=== PATIENT | female | born 1970 | race Caucasian/White ===

== ENCOUNTER 2016-10-02 05:57 | Day surgery (SDC) | payer BC ==
[2016-09-20 13:37] VITALS: BMI 31.1
--- NOTE | 2016-10-01 09:58 | HP ---
Satellite H - Chief Complaint Chief Complaint: left knee pain - Past Medical History Allergies/Adverse Reactions: Allergies Allergy/AdvReac Type Severity Reaction Status Date / Time No Known Drug Allergies Allergy Verified 09/20/16 13:18 Cardiovascular: Yes: HTN ...LMP: 11/30/15 - Current Medications Current Medications: Home Medications Medication Instructions Recorded Alprazolam [Xanax] 1 mg PO QID PRN 08/23/14 Amlodipine Besylate [Norvasc -] 5 mg PO DAILY 08/23/14 Sertraline HCl [Zoloft -] 100 mg PO DAILY 08/23/14 Gabapentin [Neurontin] 300 mg PO QID #120 capsule 08/16/16 Albuterol Sulfate [Proair 90 mcg IH ASDIR PRN 09/20/16 Respiclick] Ibuprofen/Diphenhydramine Cit 1 each PO HS PRN 09/20/16 [Advil Pm Caplet] Multivitamins [Tab-A-Vit -] 1 tab PO DAILY 09/20/16 Oxycodone HCl/Acetaminophen 1 each PO Q4H PRN 09/20/16 [Percocet 10-325 mg Tablet] Satellite Physical Exam - Physical Examination General Appearance: Well Nourished, Well Developed, Alert & Oriented x3 ENT: Clear Lung: Normal air movement Heart: Regular rate & rhythm Extremities: Other (left knee-= swelling, + ttp, dec r rom, nvi xrays show severe medial compartment djd) Neurological: Intact, Alert, Oriented Satellite Impression/Plan - Impression/Plan Impression: left knee medial djd Operative Procedure: left medial luke ukr Date to be Performed: 10/02/16
[2016-10-02] MEDS ORDERED: oxyCODONE HCL 10 MG SUSTAINED ACTING TABLET PO ONE (06:13)
[2016-10-02] MEDS ORDERED: ROPIVICAINE 0.2%/MORPH PF/KETOROLAC - 51ML DISP.SYRINGE IA ONE ×3 (06:13→09:45)
[2016-10-02] MEDS ORDERED: CEFAZOLIN 1 GM/D5W 50 ML IVPB ONE (06:13)
[2016-10-02] MEDS ORDERED: CELECOXIB 200 MG CAPSULE PO ONE (06:13)
[2016-10-02] MEDS ORDERED: GABAPENTIN 300 MG CAPSULE (FP) PO ONE (06:13)
[2016-10-02] MEDS ORDERED: TRANEXAMIC ACID 1000 MG/10 ML VIAL IVPUSH ONE (06:13)
[2016-10-02] MEDS ORDERED: oxyCODONE HCL 10 MG SUSTAINED ACTING TABLET ONE (06:20)
[2016-10-02] MEDS ORDERED: GABAPENTIN 300 MG CAPSULE (FP) ONE (06:20)
[2016-10-02] MEDS ORDERED: CELECOXIB 200 MG CAPSULE ONE (06:21)
[2016-10-02] MEDS ORDERED: DEXAMETHASONE SOD PHOSPHATE/PF 10 MG/ML SDV ONE (06:38)
[2016-10-02] MEDS ORDERED: MIDAZOLAM HCL 2 MG/2 ML SINGLE DOSE VIAL ONE ×2 (06:39→08:21)
[2016-10-02] MEDS ORDERED: ROPIVACAINE HCL 0.5% 30ML VIAL ONE (06:39)
[2016-10-02] MEDS ORDERED: KETOROLAC TROMETHAMINE 30 MG/1 ML VIAL ONE (07:08)
[2016-10-02] MEDS ORDERED: ONDANSETRON 4 MG/2 ML VIAL ONE (07:08)
[2016-10-02] MEDS ORDERED: TRANEXAMIC ACID 1000 MG/10 ML VIAL ONE (07:08)
[2016-10-02] MEDS ORDERED: ceFAZolin SODIUM 1 GM VIAL ONE ×2 (07:08→07:21)
[2016-10-02] MEDS ORDERED: DEXAMETHASONE SOD PHOSPHATE 4 MG/1 ML VIAL ONE (07:08)
[2016-10-02] MEDS ORDERED: THROMBIN (BOVINE) 5,000 UNIT VIAL TP ONE ×2 (07:21→09:22)
[2016-10-02] MEDS ORDERED: GELATIN, ABSORBABLE 100 EACH SPONGE TP ONE (07:21)
[2016-10-02] MEDS ORDERED: PROPOFOL 20 ML ONE ×2 (08:26)
[2016-10-02] MEDS ORDERED: SUCCINYLCHOLINE CHLORIDE 200 MG/10 ML VIAL ONE ×2 (08:27→09:50)
[2016-10-02] MEDS ORDERED: LIDOCAINE HCL 2% JELLY (5 ML/TUBE) ONE (08:29)
[2016-10-02] MEDS ORDERED: ROCURONIUM BROMIDE 50 MG/5 ML VIAL ONE (08:45)
[2016-10-02] MEDS ORDERED: MAG HYDROX/AL HYDROX/SIMETH 30 ML UNIT-DOSE CUP PO PRN (10:02)
[2016-10-02] MEDS ORDERED: ONDANSETRON 4 MG/2 ML VIAL IVPB PRN (10:02)
--- NOTE | 2016-10-02 10:09 | OP ---
Operative Note - Note: Operative Date: 10/02/16 (isidro) Pre-Operative Diagnosis: left knee medial djd Operation: left medial luke ukr Post-Operative Diagnosis: Same as Pre-op Surgeon: Chase Marks Deliverer Merchandise: Lane Bryan) Anesthesiologist/ENGRAVER LETTERING: Micah Simeon Anesthesia: Spinal, Local Specimens Removed: bone fragments Estimated Blood Loss (mls): 100 Operative Report Dictated: Yes
[2016-10-02] MEDS ORDERED: LACTATED RINGERS SOLUTION 1,000 ML IV SCH (10:15)
[2016-10-02] MEDS ORDERED: ACETAMINOPHEN INJECTION 100 ML IVPB ONE (10:51)
[2016-10-02] MEDS ORDERED: ACETAMINOPHEN 1000 MG/100 ML VIAL (NON FORMULARY) IVPB ONE ×2 (10:55→12:24)
[2016-10-02] MEDS ORDERED: ONDANSETRON 4 MG/2 ML VIAL IVPUSH ONE (11:35)
[2016-10-02] MEDS ORDERED: oxyCODONE HCL 5 MG TABLET PO PRN ×2 (12:24→16:43)
[2016-10-02] MEDS ORDERED: ACETAMINOPHEN 325 MG TABLET (FP) PO SCH (12:30)
[2016-10-02] MEDS: oxyCODONE HCL 5 MG TABLET PO PRN ×4 (14:12→23:39)
[2016-10-02] MEDS: GABAPENTIN 300 MG CAPSULE (FP) PO SCH ×3 (14:12→21:26)
[2016-10-02] MEDS ORDERED: oxyCODONE HCL 5 MG TABLET PO ONE (16:43)
[2016-10-02] MEDS: CEFAZOLIN 1 GM/D5W 50 ML IVPB SCH (16:48)
[2016-10-02] MEDS: ACETAMINOPHEN 325 MG TABLET (FP) PO SCH (17:43)
[2016-10-02] MEDS: oxyCODONE HCL 10 MG SUSTAINED ACTING TABLET PO SCH (21:26)
[2016-10-02] MEDS: SENNOSIDES/DOCUSATE COMBO (SENNA PLUS) TABLET (UD) PO SCH (21:27)
[2016-10-02] MEDS ORDERED: ADVIL PM PO PRN (22:53)
[2016-10-02] MEDS: ALPRAZolam 2 MG TABLET PO PRN (23:40)
[2016-10-03] MEDS: CEFAZOLIN 1 GM/D5W 50 ML IVPB SCH (00:02)
[2016-10-03] MEDS: ACETAMINOPHEN 325 MG TABLET (FP) PO SCH ×2 (00:03→06:27)
[2016-10-03 05:59] VITALS: BP 136/82; PULSE 66; TEMP 98
[2016-10-03] MEDS: oxyCODONE HCL 5 MG TABLET PO PRN ×2 (06:26→09:41)
[2016-10-03] MEDS: ALPRAZolam 2 MG TABLET PO PRN (06:28)
[2016-10-03] MEDS ORDERED: ASPIRIN 325 MG TABLET PO SCH (08:00)
--- NOTE | 2016-10-03 08:17 | PN ---
Progress Note (short form) - Note Progress Note: Ortho Pt seen and examined s/p left medial luke ukr pod #1 Selected Entries 10/03/16 05:56 Temperature 98.0 F Pulse Rate 66 Respiratory 20 Rate Blood Pressure 136/82 dressing c/d/i, calf soft, nt rom 0-90, nvi a/p PT dvt ppx pain control d/c home today f/u in 1 week
--- NOTE | 2016-10-03 08:18 | DS ---
Physical Examination Vital Signs: Vital Signs Temperature 98.0 F 10/03/16 05:56 Pulse Rate 66 10/03/16 05:56 Respiratory Rate 20 10/03/16 05:56 Blood Pressure 136/82 10/03/16 05:56 O2 Sat by Pulse Oximetry (%) 100 10/03/16 05:56 Discharge Summary Reason For Visit: LEFT KNEE OSTEOARTHRITIS Procedures: Principal: s/p left medial luke ukr Hospital Course: admitted for elective left medial luke ukr, uneventful post-op, stable for d/c Condition: Good - Instructions Diet, Activity, Other Instructions: Post-op Instructions-Partial Knee Replacement Call the office for a follow-up appointment in 1 week - [phone] Aspirin 325mg daily for 6 weeks. Pain medication was sent into your pharmacy. Apply Graduated Compression Stockings (TEDs) to both lower extremities- remove daily for hygiene ONLY Apply Sequential Compression Device (SCDs) to both Lower extremities remove for PT and hygiene ONLY Apply cold packs to affected area for 15 minutes every 2 hours. Physical Therapist will come to your home for the first 5 days. You will be set up with outpatient PT at your first post-operative visit. Patient may ambulate as tolerated-encourage self care (at least every 2-3 hours while awake) with walker or cane Maintain Aquacel (waterproof) dressing to operative wound (will be removed by surgeon at first office visit) Shower with Aquacel dressing in place-if Aquacel integrity compromised, remove and apply dry sterile dressing and notify Orthopedist. DO NOT SHOWER unless Orthopedists approves without Aquacel dressing CONTACT THE OFFICE FOR ANY CHANGE IN YOUR CONDITION (for example-fever greater than 102 degrees,excessive bleeding from operative site, purulent drainage, severe swelling or pain) GO TO THE EMERGENCY ROOM IF THERE IS A MEDICAL EMERGENCY Knee Precautions: * Keep a rolled towel under affected heel while in bed or chair (to keep knee in extension) * Keep affected leg elevated except during mealtimes * DO NOT PLACE PILLOW UNDER AFFECTED KNEE * If you have any questions, please do not hesitate to call the office - . Referrals: Lane Bryan MD [Staff Physician] - Disposition: VNS/HOME HEALTH CARE - Home Medications Comprehensive Discharge Medication List: Ambulatory Orders Alprazolam [Xanax] 1 mg PO QID PRN 05/11/15 Amlodipine Besylate [Norvasc -] 5 mg PO DAILY 08/23/14 Sertraline HCl [Zoloft -] 100 mg PO DAILY 08/23/14 Gabapentin [Neurontin] 300 mg PO QID #120 capsule 08/16/16 Albuterol Sulfate [Proair Respiclick] 90 mcg IH ASDIR PRN 09/20/16 Ibuprofen/Diphenhydramine Cit [Advil Pm Caplet] 1 each PO HS PRN 09/20/16 Multivitamins [Multivit ([facility] Formulary)] 1 tab PO DAILY 09/20/16 Oxycodone HCl/Acetaminophen [Percocet 10-325 mg Tablet] 1 each PO Q6H PRN #50 tab MDD 4 10/02/16
[2016-10-03] MEDS: GABAPENTIN 300 MG CAPSULE (FP) PO SCH (09:42)
[2016-10-03] MEDS: SENNOSIDES/DOCUSATE COMBO (SENNA PLUS) TABLET (UD) PO SCH (09:42)
[2016-10-03] MEDS: oxyCODONE HCL 10 MG SUSTAINED ACTING TABLET PO SCH (09:42)
[2016-10-03] MEDS ORDERED: PANTOPRAZOLE 40 MG TABLET (FP) PO SCH (10:00)
[2016-10-03] MEDS ORDERED: SERTRALINE HCL 50 MG TABLET (FP) PO SCH (10:00)
[2016-10-03] MEDS ORDERED: PATIENT'S OWN MEDICATION (NON-FORMULARY) (Sertraline Hcl [Zoloft -] 100 MG) PO SCH (10:00)
[2016-10-03] MEDS ORDERED: MULTIVITAMINS (DAILY MVI) TABLET (FP) PO SCH ×2 (10:00)
--- NOTE | 2016-10-03 10:55 | SPEC ---
DATE OF OPERATION: 10/02/2016 PREOPERATIVE DIAGNOSIS: Degenerative joint disease, left knee. POSTOPERATIVE DIAGNOSIS: Degenerative joint disease, left knee. PROCEDURE: Left medial unicompartmental knee replacement with robotic-assisted navigation (MAKOplasty) and patelloplasty. SURGICAL ATTENDING: Chase Marks MD SALES EXHIBITOR: ELICEO Smith, and Vikas Bryan MD ANESTHESIA: Regional, attempted spinal and general with endotracheal intubation. CLOSURE: Medial MAKOplasty components with a 3 femur, 3 tibia, 8 mm polyethylene, No. 1 Vicryl to fascia, 0 and 2-0 subcutaneous and 3-0 Monocryl subcuticular to skin with skin glue for skin, 4-0 undyed Vicryl for pin sites. ESTIMATED BLOOD LOSS: Negligible. TOURNIQUET TIME: Approximately 20 minutes. COMPLICATIONS: No complications. DESCRIPTION OF PROCEDURE: Patient was taken to the operating room. Spinal and femoral block anesthesia was administered by the anesthesiologist. IV Kefzol and TXA were administered prophylactically prior to the case. A well-padded pneumatic tourniquet was placed on the left proximal thigh. The left lower extremity was prepped and draped in the usual sterile fashion. A 6 cm longitudinal incision was made along the medial retinaculum from mid patella toward the tibial tubercle. Hemostasis was achieved using Bovie cautery. Sharp dissection was carried down to the level of the capsule, which was opened the entire length of incision. A subperiosteal dissection in the anterior medial proximal tibia. Periosteal elevator was used to facilitate this dissection. Partial fat pad excision was performed to gain visualization. A femoral and tibial checkpoint were malleted into place. Two bicortical pins were drilled through small stab incisions into the femur 1 handbreadth above the patella. Two bicortical pins were drilled into the tibia 1 handbreadth below the tibial tubercle through small stab incisions as well. To these, pins were attached to clamp and the navigation arrays. The knee was then registered with the navigation device by ascertaining the center of rotation of the hip, both the medial and lateral malleoli, at approximately 50 points on the tibia and femur. Registration was within JOSE M parameters, being less than half a millimeter. At this time, the medial osteophytes on both the femur and tibia were removed by use of rongeur. The knee was taken through a range of motion and with stressing the medial compartment open at 0, 30, 60, 90 and 120 degrees. Stress points were obtained in order to develop a flexion/extension and a tightness/looseness graph. The robotic navigation device obtained a virtual tracking of the knee and found that the traction was in excellent position. The components were manipulated virtually in order to obtain a flexion/extension, tightness/looseness graph which was then +/- 1 mm. The robot was then brought into the field and registered with the navigation device. The robot was then used to zackery the bone on both the femur and the tibia to the specifications and direction of the navigation device. All excess bone and osteophytes and cartilage were removed, including the medial meniscus. Care was taken to protect the MCL throughout the case. The trial components were then placed into the knee with the appropriate polyethylene plastic trial liner. The knee was taken through a range of motion and the graph on the navigation device was then used again to confirm ideal position of the components and ideal tightness/looseness of the components. The trial components were removed, along with the checkpoints and the array. The knee was exsanguinated with an Esmarch bandage and tourniquet inflated to 175 mmHg. The knee was post-antibiotic irrigated and then dried and then Avitene and Gelfoam were placed to aid in hemostasis. The real components were then cemented in using modern generation cement techniques with antibiotics, cement and pressurization. All excess cement was removed. The knee was thoroughly inspected to remove any excess cement and bone fragments. The real polyethylene component was then clipped into place. Range of motion revealed excellent range of motion and good tensioning throughout. The knee was post-antibiotic irrigated. The fascia was closed using 2-0 Vicryl interrupted suture. The tourniquet was deflated. Total tourniquet time was less than 30 minutes. Hemostasis was obtained. Another dose of TXA was administered. The subcutaneous was closed with 2-0 Vicryl, 3-0 Monocryl subcuticular for skin. A pain cocktail was infused throughout the soft tissue. The pin sites were irrigated and closed with 4-0 Vicryl and skin glue was used for all incisions. Sterile Aquacel dressing was placed on all incisions followed by a dressing from the toes to the thigh. Patient was transferred to the recovery room in stable condition. No complications. VIKAS BRYAN M.D. [id number]
--- NOTE | 2016-10-03 19:11 | PN ---
Progress Note (short form) - Note Progress Note: S: Pt. seen early this am. Pt. ambulating without a walker. No knee pain. mild superficial back pain where spinal was attempted. O: VAS 0/10 A/P: POD#1 s/p left knee makoplasty 1. continue pain meds as ordered 2. no paresthesias, no pain in lower extremeties. reassured pt. that titanium plates weren't moved during spinal attempt.
== END 2016-10-03 10:30 | disposition home health service (06) ==
LOC: FASU 05:57 → FM/S 13:05 → FASU 10-03 10:30
PROVIDERS: ATTEND Orthopaedic Surgery
PROC: 8E0YXBZ Computer Assisted Procedure of Lower Extremity (ICD-10-PCS; 2016-10-02)
PROC: 8E0Y0CZ Robotic Assisted Procedure of Lower Extremity, Open Approach (ICD-10-PCS; 2016-10-02)
PROC: 0SRD0L9 Replacement of Left Knee Joint with Medial Unicondylar Synthetic Substitute, Cemented, Open Approach (ICD-10-PCS; principal; 2016-10-02 08:43)
DX: M17.12 Unilateral primary osteoarthritis, left knee (principal)
CPT/HCPCS: 20985; 27446; C1776; S2900; 73560-TC-LT; 84703; 94760; 97116-GP; 97162-PG

== ENCOUNTER 2016-11-01 17:16 | Inpatient (IN) | payer BC ==
[2016-11-01 17:24] VITALS: BMI 31.1
--- NOTE | 2016-11-01 17:51 | PDOC ---
Attending Attestation - Resident Resident Name: Mina Knox <Dagoberto Kramer - Last Filed: 11/01/16 17:50> - HPI HPI: 11/01/16 18:26 Patient is a 46 year old female with a pmhx of HTN who presents to the ED with left knee pain. Patient had a partial left knee replacement surgery and saw her Orthopedist today and had suture removal. Patient reports increased pain and swelling for 2 days. Patient reports difficulty to ambulate. She denies any fever or chills. - Physicial Exam PE: 11/01/16 20:13 GENERAL: Awake, alert, and fully oriented, in no acute distress HEAD: No signs of trauma EYES: PERRLA, EOMI, sclera anicteric, conjunctiva clear ENT: Auricles normal inspection, hearing grossly normal, nares patent, oropharynx clear without exudates. Moist mucosa NECK: Normal ROM, supple, no lymphadenopathy, JVD, or masses LUNGS: Breath sounds equal, clear to auscultation bilaterally. No wheezes, and no crackles HEART: Regular rate and rhythm, normal S1 and S2, no murmurs, rubs or gallops ABDOMEN: Soft, nontender, normoactive bowel sounds. No guarding, no rebound. No masses EXTREMITIES: Normal range of motion. No clubbing or cyanosis. No cords. NEUROLOGICAL: Cranial nerves II through XII grossly intact. Normal speech, normal gait SKIN: (+)Erythema and edema around the incision sight on the right knee. No drainage noted. Warm, Dry, normal turgor, no rashes. - Medical Decision Making 11/01/16 18:26 Plan -Labs -CXR -XRAY of the left knee -IVF -ECG Documentation prepared by PAVITHRA Tello, acting as medical device engineer for Dagoberto Kramer DO. <Colleen White - Last Filed: 11/01/16 20:14>
[2016-11-01] MEDS ORDERED: HYDROmorphone HCL CARPU-JECT 2 MG/1 ML DISP.SYRIN IVPUSH ONE ×2 (18:25→21:06)
[2016-11-01] MEDS ORDERED: ONDANSETRON 4 MG/2 ML VIAL IVPUSH ONE (18:25)
[2016-11-01] MEDS ORDERED: ONDANSETRON 4 MG/2 ML VIAL ONE (18:34)
[2016-11-01] MEDS ORDERED: HYDROmorphone HCL CARPU-JECT 2 MG/1 ML DISP.SYRIN ONE ×2 (18:34→21:09)
--- NOTE | 2016-11-01 18:34 | PDOC ---
History of Present Illness - General Chief Complaint: Wound Infection Stated Complaint: Left knee pain, swelling Time Seen by Provider: 11/01/16 17:50 - History of Present Illness Initial Comments: 11/01/16 18:52 Patient is a 46 year old female with a history of HTN and a partial left knee replacement 1 month ago who presents with left knee pain. Patient reports increased pain and swelling in her left knee over the past 2 days around the surgical incision. She states that she was evaluated by her surgeon this morning who removed two stitches and prescribed an antibiotic. The patient was unable to take the antibiotic due to vomiting. She states that she can no longer walk on or bend her knee which prompted her presentation to the ED. She states that some clear fluid drained from her knee yesterday. She endorses some fevers, chills, and sweating over the past 2 days. She denies any chest pain, SOB, abdominal pain, or changes with bowel movements or urination. Past History - Past Medical History Allergies/Adverse Reactions: Allergies Allergy/AdvReac Type Severity Reaction Status Date / Time No Known Drug Allergies Allergy Verified 11/01/16 17:23 Home Medications: Ambulatory Orders Alprazolam [Xanax] 1 mg PO QID PRN 08/23/14 Amlodipine Besylate [Norvasc -] 5 mg PO DAILY 08/23/14 Sertraline HCl [Zoloft -] 100 mg PO DAILY 08/23/14 Gabapentin [Neurontin] 300 mg PO QID #120 capsule 08/16/16 Albuterol Sulfate [Proair Respiclick] 90 mcg IH ASDIR PRN 09/20/16 Ibuprofen/Diphenhydramine Cit [Advil Pm Caplet] 1 each PO HS PRN 09/20/16 Multivitamins [Multivit ([facility] Formulary)] 1 tab PO DAILY 09/20/16 Oxycodone HCl/Acetaminophen [Percocet 10-325 mg Tablet] 1 each PO Q6H PRN #50 tab MDD 4 10/02/16 Anemia: Yes ( A TEENAGER HAD IRON SHOTS) Asthma: Yes (HAS HAD BRONCHITIS/ASTHMA 1-2 TIMES A YEAR) Cancer: No Cardiac Disorders: No CVA: No COPD: No CHF: No Dementia: No Diabetes: No GI Disorders: Yes (STOMACH ULCERS IN THE PAST) Disorders: No HTN: Yes Hypercholesterolemia: No Liver Disease: No Psychiatric Problems: Yes Seizures: No Thyroid Disease: No - Surgical History Abdominal Surgery: No Appendectomy: No Cardiac Surgery: No Cholecystectomy: No Lung Surgery: No Neurologic Surgery: No Orthopedic Surgery: Yes (LUMBAR Laminectomy 11/16 WITH HARDWARE) - Psycho/Social/Smoking Cessation Hx Anxiety: Yes Suicidal Ideation: No Smoking Status: Yes Smoking History: Current every day smoker Have you smoked in the past 12 months: Yes Number of Cigarettes Smoked Daily: 10 Information on smoking cessation initiated: Yes 'Breaking Loose' booklet given: 11/01/16 Hx Alcohol Use: No Drug/Substance Use Hx: No Substance Use Type: None Hx Substance Use Treatment: No Review of Systems - Review of Systems Constitutional: Yes: Chills, Fever, Night Sweats HEENTM: No: Recent change in vision, Nose Congestion, Throat Pain Respiratory: No: Cough, Shortness of Breath Cardiac (ROS): No: Chest Pain, Lightheadedness, Palpitations ABD/GI: Yes: Nausea, Vomiting. No: Constipated, Diarrhea : No: Burning, Dysuria Integumentary: Yes: Erythema. No: Rash Neurological: No: Headache, Tingling *Physical Exam - Vital Signs Last Vital Signs Temp Pulse Resp BP Pulse Ox 100.4 F H 121 H 19 152/81 94 L 11/01/16 17:21 11/01/16 17:21 11/01/16 17:21 11/01/16 17:21 11/01/16 17:21 - Physical Exam Comments: 11/01/16 19:22 General Appearance: Nourished. No Apparent Distress HEENT: No Pharyngeal Erythema, Tonsillar Exudate, Tonsillar Erythema Respiratory/Chest: Lungs Clear, Normal Breath Sounds. No Crackles, Rales, Rhonchi, Wheezing Cardiovascular: Regular Rhythm, Regular Rate. No Murmur, Gallop/S3, Gallop/S4 Gastrointestinal/Abdominal: Normal Bowel Sounds, Soft. No Guarding, Rebound, Tenderness Extremity: Normal Capillary Refill, Erythema and warmth of the left knee around surgical incision site. No drainage noted. Swelling and some fluculence noted on exam. Integumentary: Normal Color, Dry, Warm Neurologic: Fully Oriented, Alert, Normal Mood/Affect, Normal Response ED Treatment Course - LABORATORY CBC & Chemistry Diagram: 11/01/16 18:30 11/01/16 18:30 - RADIOLOGY Radiology Studies Ordered: Category Date Time Status CHEST X-RAY PORTABLE* [RAD] Stat Radiology 11/01/16 18:10 Ordered KNEE 3 POS-LEFT [RAD] Stat Radiology 11/01/16 18:10 Ordered Medical Decision Making - Medical Decision Making 11/01/16 19:24 Patient is a 46 year old female who presents with concern for wound infection in her left knee. Given the patient's physical exam, it is concerning for a wound infection. We will get a full sepsis work up given her history of fevers and chills including a cbc, cmp, lactate, blood cultures as well as a knee radiograph and chest radiograph. 11/01/16 22:41 Labs are unremarkable with no elevated WBC and negative lactate. Chest radiograph is unremarkable and knee radiograph demonstrates post surgical edema. Given the patient's physical exam, her knee is highly concerning for wound infection and we will admit for IV antibiotics. We discussed the case with Dr. Alonzo who agreed with admission. We will admit to Dr. Pulido per Dr. Alonzo's request. We will also place a consult to Dr. Bryan who performed the patient's knee replacement. The patient is agreeable to the plan. Please update the patient's father at: [phone] with any major changes. *DC/Admit/Observation/Transfer Diagnosis at time of Disposition: Wound infection - Discharge Dispostion Condition at time of disposition: Stable Admit: Yes - Referrals Referrals: Lane Sorenson MD [Primary Care Provider] - - Attestations Physician Attestion: 11/01/16 22:37 I, Dr. Mina Knox, attest that this document has been prepared under my direction and personally reviewed by me in its entirety. I further attest, that it accurately reflects all work, treatment, procedures and medical decision -making performed by me.
[2016-11-01 18:38] LABS: VENOUS PH 7.52 (7.32-7.42)
[2016-11-01 18:39] LABS: VENOUS BLOOD GAS HCO3 21.5 meq/L (19-25)
[2016-11-01] MEDS ORDERED: ACETAMINOPHEN 325 MG TABLET (FP) PO ONE (18:40)
[2016-11-01 19:07] LABS: BASOPHIL 0.5 % (0-2.0); EOSINOPHIL 0.1 % (0-4.5); MCH 33.1 pg (25.7-33.7); MCHC 33.3 g/dl (32.0-36.0); MEAN CELL VOLUME 99.6 fl (80-96); MEAN PLT VOLUME 8.8 fl (7.5-11.1); NEUTROPHILS 85.4 % (42.8-82.8); PLATELET COUNT 160 K/MM3 (134-434); RDW 14.9 % (11.6-15.6); WHITE BLOOD COUNT 8.4 K/mm3 (4.0-10.0)
[2016-11-01] MEDS ORDERED: ACETAMINOPHEN 325 MG TABLET (FP) ONE (19:14)
[2016-11-01 19:20] LABS: INR 0.98 (0.82-1.09); PROTHROMBIN TIME (PATIENT) 10.8 SEC (9.98-11.88)
[2016-11-01 19:23] LABS: ACTIVATED PTT 30.9 SECONDS (26.9-34.4)
[2016-11-01 19:34] LABS: ALBUMIN 3.6 g/dl (3.4-5.0); ANION GAP 14 (8-16); CALCIUM 8.7 mg/dL (8.5-10.1); CO2 20 mmol/L (21-32); CREATININE 0.5 mg/dL (0.55-1.02); GLUCOSE,RANDOM 140 mg/dL (74-106); SGOT/AST 53 U/L (15-37); SGPT/ALT 41 U/L (12-78)
[2016-11-01 19:38] LABS: ALK PHOS 115 U/L (45-117); BILIRUBIN,TOTAL 0.4 mg/dL (0.2-1.0); TOT PROT 7.1 g/dl (6.4-8.2); TROPONIN I < 0.02 ng/ml (0.00-0.05)
[2016-11-01] MEDS ORDERED: ALPRAZolam 0.25 MG TABLET ONE (21:59)
[2016-11-01] MEDS ORDERED: ALPRAZolam 0.25 MG TABLET PO ONE (22:02)
[2016-11-01] MEDS ORDERED: PIPERACILLIN/TAZOB 3.375 GM 3.375 GM in DEXTROSE 5%-WATER - 50 ML IVPB ONE (22:15)
[2016-11-01] MEDS ORDERED: VANCOMYCIN 1 GRAM (PRE-DOCKED) 1,000 MG/250 ML BAG IVPB ONE (22:15)
[2016-11-01] MEDS ORDERED: PIPERACILLIN/TAZOB 3.375 GM 50 ML IVPB ONE (22:29)
[2016-11-01] MEDS ORDERED: VANCOMYCIN 1 GRAM (PRE-DOCKED) 250 ML IVPB ONE (22:53)
[2016-11-02] MEDS ORDERED: ALPRAZolam 2 MG TABLET PO PRN (01:04)
[2016-11-02] MEDS ORDERED: ONDANSETRON 4 MG/2 ML VIAL IVPB PRN ×2 (01:04→17:47)
[2016-11-02] MEDS: oxyCODONE HCL 5 MG TABLET PO PRN ×3 (01:12→20:47)
[2016-11-02] MEDS: ACETAMINOPHEN 325 MG TABLET (FP) PO PRN ×2 (01:32→07:53)
[2016-11-02 03:46] LABS: URINE APPEARANCE CLEAR; URINE BILIRUBIN NEGATIVE (NEGATIVE); URINE BLOOD 1+ (NEGATIVE); URINE COLOR LTYELLOW; URINE GLUCOSE (UA) NEGATIVE (NEGATIVE); URINE KETONE NEGATIVE (NEGATIVE); URINE LEUK ESTERASE NEGATIVE (NEGATIVE); URINE NITRITE NEGATIVE (NEGATIVE); URINE UROBILINOGEN NEGATIVE mg/dL (0.2-1.0)
[2016-11-02 03:52] LABS: URINE PROTEIN 1+ (NEGATIVE)
[2016-11-02 03:53] LABS: URINE BACTERIA RARE /hpf (NONE SEEN); URINE MUCUS RARE; URINE RBC 9 /hpf (0-3); URINE WBC 2 /hpf (3-5)
[2016-11-02] MEDS: GABAPENTIN 300 MG CAPSULE (FP) PO SCH ×3 (09:49→20:48)
[2016-11-02] MEDS ORDERED: SERTRALINE HCL 50 MG TABLET (FP) PO SCH (10:00)
[2016-11-02] MEDS ORDERED: amLODIPine BESYLATE 5 MG TABLET (FP) PO SCH (10:00)
--- NOTE | 2016-11-02 10:18 | EKG ---
Test Reason : Blood Pressure : / mmHG Vent. Rate : 118 BPM Atrial Rate : 118 BPM P-R Int : 148 ms QRS Dur : 074 ms QT Int : 326 ms P-R-T Axes : 054 016 -03 degrees QTc Int : 456 ms POOR DATA QUALITY, INTERPRETATION MAY BE ADVERSELY AFFECTED SINUS TACHYCARDIA POSSIBLE LEFT ATRIAL ENLARGEMENT BORDERLINE ECG Confirmed by MD SKYE, REBECA ([id number]) on 11/02/2016 10:18:11 AM Referred By: Confirmed By:REBECA CHEUNG MD
--- NOTE | 2016-11-02 11:20 | PN ---
Progress Note (short form) - Note Progress Note: ID Consult dictated Surgical site infection Possible sepsis secondry to skin source Partial L knee replacement Pending c/s empiric vancomycin/ zosyn
[2016-11-02] MEDS ORDERED: VANCOMYCIN 1 GRAM (PRE-DOCKED) 250 ML IVPB SCH (12:00)
[2016-11-02] MEDS ORDERED: PIPERACILLIN/TAZOB 3.375 GM 50 ML IVPB SCH (12:00)
[2016-11-02] MEDS ORDERED: PATIENT'S OWN MEDICATION (NON-FORMULARY) (Albuterol Sulfate [Proair Respiclick] 90 MCG) IH PRN (13:03)
[2016-11-02] MEDS ORDERED: ALPRAZolam 0.25 MG TABLET PO PRN (13:03)
[2016-11-02] MEDS ORDERED: morphine CARPU-JECT 4 MG/1 ML DISP.SYRIN IVPUSH PRN ×2 (13:04→17:47)
[2016-11-02] MEDS ORDERED: SODIUM CHLORIDE 1,000 ML IV SCH (13:15)
--- NOTE | 2016-11-02 13:39 | HP ---
Admitting History and Physical - Primary Care Physician PCP: Lane Sorenson - Admission Chief Complaint: My knee is infected History of Present Illness: Ms Iglesias is a 46 year old female with history of L knee replacement who comes in with pain and redness. Patient is very upset and tearful during the history and it is difficult to establish a timeline of her complaints. She says she had surgery done last month (records show she had surgery done on 10/02) and was doing well post op. She says she was doing well with her PT and was up walking, playing with her dog, and moving without difficulty. About 2 weeks ago she started having pain in her L knee. She says the pain became so severe that she was unable to walk. She presented to Dr Bryan and stitches were removed. She went home and the pain worsened, she noticed she had redness and warmth as well. At this point it is difficult to ascertain the duration of the other symptoms. She said she had fevers, chills, nausea, vomiting, and anorexia. She says these symptoms have been present for several days and later says they started yesterday. I was not able to clarify secondary to her mood. I was also unable to obtain any further objective as at this point the family entered the room and they began to speak amongst themselves about the patients current conditions which further exacerbated the patient's stress. History Source: Patient Limitations to Obtaining History: Other (patient very frustrated with situation) - Past Medical History Cardiovascular: Yes: HTN ...LMP: 11/30/15 Psych: Yes: Depression - Past Surgical History Past Surgical History: Yes: Joint Replacement, Laminectomy (lumbar) - Smoking History Smoking history: Current every day smoker Have you smoked in the past 12 months: Yes Aproximately how many cigarettes per day: 10 - Alcohol/Substance Use Hx Alcohol Use: No - Social History Usual Living Arrangement: Yes: With Spouse ADL: Independent Occupation: teacher History of Recent Travel: No Home Medications - Allergies Allergies/Adverse Reactions: Allergies Allergy/AdvReac Type Severity Reaction Status Date / Time No Known Drug Allergies Allergy Verified 11/01/16 17:23 - Home Medications Home Medications: Ambulatory Orders Alprazolam [Xanax] 1 mg PO QID PRN 08/23/14 Amlodipine Besylate [Norvasc -] 5 mg PO DAILY 08/23/14 Sertraline HCl [Zoloft -] 100 mg PO DAILY 08/23/14 Gabapentin [Neurontin] 300 mg PO QID #120 capsule 08/16/16 Albuterol Sulfate [Proair Respiclick] 90 mcg IH ASDIR PRN 09/20/16 Ibuprofen/Diphenhydramine Cit [Advil Pm Caplet] 1 each PO HS PRN 09/20/16 Multivitamins [Multivit ([facility] Formulary)] 1 tab PO DAILY 09/20/16 Oxycodone HCl/Acetaminophen [Percocet 10-325 mg Tablet] 1 each PO Q6H PRN #50 tab MDD 4 10/02/16 Family Disease History - Family Disease History Family Disease History: [place]: Mother Review of Systems Findings/Remarks: Full review of systems attempted but limited secondary to current mood Physical Examination Vital Signs: Vital Signs Temperature 99.3 F 11/02/16 09:30 Pulse Rate 94 H 11/02/16 09:30 Respiratory Rate 18 11/02/16 09:30 Blood Pressure 135/78 11/02/16 09:30 O2 Sat by Pulse Oximetry (%) 95 11/01/16 23:17 Constitutional: Yes: Moderate Distress Eyes: Yes: Conjunctiva Clear, EOM Intact, PERRL Cardiovascular: Yes: Regular Rate and Rhythm. No: Gallop, Murmur, Rub Respiratory: Yes: Regular, CTA Bilaterally. No: Rales, Rhonchi, Wheezes Gastrointestinal: Yes: Normal Bowel Sounds, Soft. No: Distention, Tenderness Extremities: Yes: Erythema Edema: No Labs: Laboratory Results - last 24 hr 11/01/16 11/01/16 11/01/16 18:30 18:30 18:30 WBC 8.4 D RBC 3.81 Hgb 12.6 D Hct 38.0 MCV 99.6 H MCH 33.1 D MCHC 33.3 RDW 14.9 D Plt Count 160 MPV 8.8 Neutrophils % 85.4 H D Lymphocytes % 9.1 D Monocytes % 4.9 Eosinophils % 0.1 D Basophils % 0.5 INR 0.98 PTT (Actin FS) 30.9 VBG pH POC VBG pCO2 POC VBG pO2 Mixed VBG HCO3 Sodium 137 Potassium 3.4 L Chloride 103 Carbon Dioxide 20 L D Anion Gap 14 BUN 7 Creatinine 0.5 L Creat Clearance w eGFR > 60 Random Glucose 140 H D Lactic Acid Calcium 8.7 Total Bilirubin 0.4 D AST 53 H D ALT 41 D Alkaline Phosphatase 115 D Creatine Kinase 47 Troponin I < 0.02 Total Protein 7.1 Albumin 3.6 Urine Color Urine Appearance Urine pH Ur Specific [place] Urine Protein Urine Glucose (UA) Urine Ketones Urine Blood Urine Nitrite Urine Bilirubin Urine Urobilinogen Ur Leukocyte Esterase Urine RBC Urine WBC Ur Epithelial Cells Urine Bacteria Urine Mucus Blood Type Antibody Screen 11/01/16 11/01/16 11/01/16 18:30 18:32 18:33 WBC RBC Hgb Hct MCV MCH MCHC RDW Plt Count MPV Neutrophils % Lymphocytes % Monocytes % Eosinophils % Basophils % INR PTT (Actin FS) VBG pH 7.52 H POC VBG pCO2 26.8 L POC VBG pO2 51.7 H Mixed VBG HCO3 21.5 Sodium Potassium Chloride Carbon Dioxide Anion Gap BUN Creatinine Creat Clearance w eGFR Random Glucose Lactic Acid 0.8 Calcium Total Bilirubin AST ALT Alkaline Phosphatase Creatine Kinase Troponin I Total Protein Albumin Urine Color Urine Appearance Urine pH Ur Specific [place] Urine Protein Urine Glucose (UA) Urine Ketones Urine Blood Urine Nitrite Urine Bilirubin Urine Urobilinogen Ur Leukocyte Esterase Urine RBC Urine WBC Ur Epithelial Cells Urine Bacteria Urine Mucus Blood Type A POSITIVE Antibody Screen Negative 11/02/16 02:40 WBC RBC Hgb Hct MCV MCH MCHC RDW Plt Count MPV Neutrophils % Lymphocytes % Monocytes % Eosinophils % Basophils % INR PTT (Actin FS) VBG pH POC VBG pCO2 POC VBG pO2 Mixed VBG HCO3 Sodium Potassium Chloride Carbon Dioxide Anion Gap BUN Creatinine Creat Clearance w eGFR Random Glucose Lactic Acid Calcium Total Bilirubin AST ALT Alkaline Phosphatase Creatine Kinase Troponin I Total Protein Albumin Urine Color Ltyellow Urine Appearance Clear Urine pH 6.0 Ur Specific [place] 1.025 Urine Protein 1+ H Urine Glucose (UA) Negative Urine Ketones Negative Urine Blood 1+ H Urine Nitrite Negative Urine Bilirubin Negative Urine Urobilinogen Negative Ur Leukocyte Esterase Negative Urine RBC 9 Urine WBC 2 Ur Epithelial Cells Rare Urine Bacteria Rare Urine Mucus Rare Blood Type Antibody Screen Imaging - Results Chest X-ray: Report Reviewed, Image Reviewed X-ray: Report Reviewed Problem List - Problems (1) Wound infection Assessment/Plan: -patient presents with wound infection and sepsis -admitted to the hospital -blood culture growing gram positive cocci -ID consulted, started on vancomycin and zosyn -ortho consulted to evaluate wound, ? if needs to return to OR -suspect will need assisted antibiotics -pain control Code(s): T14.8 - OTHER INJURY OF UNSPECIFIED BODY REGION L08.9 - LOCAL INFECTION OF THE SKIN AND SUBCUTANEOUS TISSUE, UNSP (2) Hypertension Assessment/Plan: -continue amlodipine Code(s): I10 - ESSENTIAL (PRIMARY) HYPERTENSION (3) Tobacco abuse Assessment/Plan: -nicotine patch ordered Code(s): Z72.0 - TOBACCO USE (4) Anxiety Assessment/Plan: -continue home anxiety regimen Code(s): F41.9 - ANXIETY DISORDER, UNSPECIFIED
[2016-11-02] MEDS ORDERED: GABAPENTIN 300 MG CAPSULE (FP) PO SCH (14:00)
[2016-11-02] MEDS ORDERED: NICOTINE 14 MG/24 HOURS TOPICAL PATCH TD SCH (15:45)
--- NOTE | 2016-11-02 15:58 | CONSULT ---
Consult - text type - Consultation Consultation Note: FULL CONSULT DICTATED IMP: SURGICAL SITE INFECTION RIGHT KNEE PLAN: I&D NOW, IV ABX
[2016-11-02] MEDS ORDERED: SUCCINYLCHOLINE CHLORIDE 200 MG/10 ML VIAL ONE (16:08)
[2016-11-02] MEDS ORDERED: PROPOFOL 20 ML ONE ×2 (16:08→16:39)
[2016-11-02] MEDS ORDERED: LIDOCAINE HCL/PF 2% SDV 5ML VIAL ONE (16:10)
--- NOTE | 2016-11-02 16:25 | CONS ---
INFECTIOUS DISEASE CONSULTATION DATE OF CONSULTATION: DATE OF DICTATION: 11/02/2016 HISTORY OF PRESENT ILLNESS: The patient is a 46-year-old female who is evaluated for surgical site infection. The patient underwent a MAKOplasty procedure of the left knee on October 02, 2016. Her immediate postoperative course was uncomplicated. She reports being able to attend physical therapy and walk her dog shortly after the surgery. She did well until approximately 2 days ago, on October 31, 2016. She noted some yellowish discharge from the superior pole of the surgical incision. She had presented to her orthopedist and was evaluated. Sutures were removed, and she was placed on an oral antibiotic. She subsequently developed increasing pain, erythema, warmth, and swelling of the knee with inability to ambulate or bend the knee. She noted clear drainage. She is now admitted to the hospital. Cultures were obtained, and she was empirically treated with vancomycin and Zosyn. At the present time, she complains of left knee pain. She reports she is unable to ambulate. She also complained of fever to 100.4 and chills. PAST MEDICAL HISTORY: Positive for hypertension and degenerative joint disease. ALLERGIES: No known allergies. MEDICATIONS: Include Zofran, Tylenol, vancomycin, Zosyn, Neurontin, Zoloft, Xanax, Norvasc, oxycodone. SOCIAL HISTORY: She lives at home. Positive tobacco use. Negative history of alcohol abuse or illicit drug use. SYSTEMS REVIEW: Neurologic: No loss of consciousness, seizure activity, focal weakness. Cardiac: Negative chest pain or palpitations. Respiratory: Negative cough or sputum production. Gastrointestinal: Negative vomiting or diarrhea. Genitourinary: Negative for urinary tract infection. LABORATORY DATA: White count 8.4, hematocrit 38.0, platelet count 160. BUN 7, creatinine 0.5. Blood and wound cultures pending. PHYSICAL EXAMINATION: General: She is awake and alert. She is not acutely toxic appearing. Vital Signs: Temperature 99.3, T-max 100.4; blood pressure 135/78; pulse 94, regular; respirations 20 per minute. HEENT: Sclerae anicteric. Heart: Sounds S1, S2. Lungs: Clear bilaterally. Abdomen: Obese, soft, nontender. Extremities: Negative for pedal edema. Examination of the left knee: There is a surgical incision over the left patella which appears to have healed well. There is an area of erythema approximately 3 x 5 cm at the superior pole of the surgical wound. A second area of erythema approximately 3 cm x 3 cm is present at the inferior pole of the surgical wound. There is no expressible pus. However, there is yellowish discharge noted on the surgical dressing. IMPRESSION: 1. Surgical site infection. 2. Possible sepsis secondary to skin infection. 3. Possible deep-seated infection with involvement of the prosthetic material. Await culture results. Obtain sedimentation rate and C-reactive protein. Empiric antibiotic coverage with vancomycin and Zosyn pending culture results. Will follow. Thank you for the kind referral. ACE UNDERWOOD M.D. [id number]
[2016-11-02] MEDS ORDERED: DEXAMETHASONE SOD PHOSPHATE 4 MG/1 ML VIAL ONE (16:32)
[2016-11-02] MEDS ORDERED: KETOROLAC TROMETHAMINE 30 MG/1 ML VIAL ONE (16:32)
[2016-11-02] MEDS ORDERED: ACETAMINOPHEN 1000 MG/100 ML VIAL (NON FORMULARY) IVPB ONE ×2 (16:43→17:30)
[2016-11-02] MEDS ORDERED: VANCOMYCIN 1,000 MG VIAL (RESTRICTED TO ID ONLY) ONE (16:58)
[2016-11-02] MEDS: HYDROmorphone HCL CARPU-JECT 1 MG/1 ML DISP.SYRIN IVPUSH PRN ×4 (17:30→19:00)
--- NOTE | 2016-11-02 17:30 | OP ---
Operative Note - Note: Operative Date: 11/02/16 Pre-Operative Diagnosis: infected left knee s/p partial knee replacement Operation: I&D left knee Post-Operative Diagnosis: Same as Pre-op Surgeon: Lane Bryan Anesthesia: General Estimated Blood Loss (mls): 100 Operative Report Dictated: Yes
[2016-11-02] MEDS ORDERED: MAG HYDROX/AL HYDROX/SIMETH 30 ML UNIT-DOSE CUP PO PRN ×2 (17:35→17:47)
[2016-11-02] MEDS ORDERED: ONDANSETRON 4 MG/2 ML VIAL IVPUSH PRN (17:36)
[2016-11-02] MEDS ORDERED: ACETAMINOPHEN INJECTION 100 ML IVPB ONE (17:40)
[2016-11-02] MEDS ORDERED: HYDROmorphone HCL CARPU-JECT 2 MG/1 ML DISP.SYRIN ONE (17:40)
[2016-11-02] MEDS ORDERED: LACTATED RINGERS SOLUTION 1,000 ML IV SCH ×3 (17:45→17:47)
[2016-11-02] MEDS ORDERED: PIPERACILLIN/TAZOB 3.375 GM/50 ML PRE-DOCKED IVPB ONE (18:15)
[2016-11-02] MEDS ORDERED: ALBUTEROL SO4 6.7 GM HFA INHALER IH PRN (18:49)
[2016-11-02] MEDS: PIPERACILLIN/TAZOB 3.375 GM 50 ML IVPB SCH (21:26)
[2016-11-02] MEDS: ALPRAZolam 0.25 MG TABLET PO PRN (21:27)
[2016-11-02] MEDS ORDERED: DOCUSATE SODIUM 100 MG CAPSULE (FP) PO SCH (22:00)
[2016-11-02] MEDS: DOCUSATE SODIUM 100 MG CAPSULE (FP) PO SCH (22:50)
[2016-11-03] MEDS: VANCOMYCIN 1 GRAM (PRE-DOCKED) 250 ML IVPB SCH ×2 (00:14→11:58)
[2016-11-03] MEDS: SODIUM CHLORIDE 1,000 ML IV SCH ×3 (02:37→18:14)
[2016-11-03] MEDS: PIPERACILLIN/TAZOB 3.375 GM 50 ML IVPB SCH ×3 (03:00→17:12)
[2016-11-03] MEDS: GABAPENTIN 300 MG CAPSULE (FP) PO SCH ×5 (03:27→22:45)
--- NOTE | 2016-11-03 08:26 | CONS ---
DATE OF CONSULTATION: 11/02/2016 HISTORY OF PRESENT ILLNESS: Patient is a 46-year-old female who is status post right unicompartmental knee replacement performed by me approximately 1 month ago. Patient was doing phenomenally well until yesterday. Patient showed up in my office complaining of increased pain and some mild erythema at the superior portion of the incision. At that time, I opened the superior portion of the incision and found a small stitch, and I suspected it was a stitch abscess, which I removed and packed and placed the patient on p.o. antibiotics. At that time, the patient had excellent range of motion, no effusion inside the knee joint, and only slight erythema at the superior pole of the patella. Patient was given p.o. antibiotics, Keflex. About 3 hours later, patient started vomiting and was not able to tolerate the antibiotics, and pain got worse. Patient eventually went to the emergency room at [facility] last night and was admitted with worsening pain and redness around the incision. Patient was placed on IV antibiotics and admitted to the hospital. At that time, her systemic white count was 8, and she had no fever. A consult was placed in for me today, November 02. I came to see the patient at approximately 2:00 and saw that the erythema had significantly increased from her visit yesterday to my office, extending now entire length of the anterior incision with what appears to be some fluctuance underneath the incision itself. There is no effusion in the knee joint itself, and the patient still has very good range of motion. Patient's fever was only 100.9 at this time, but the patient was complaining of increased pain. Patient's range of motion was still excellent, was 0-125 degrees. Calf is soft, nontender, and otherwise neurovascularly intact. IMPRESSION: Surgical incision infection. I do not believe that it has penetrated into the knee joint itself. Risks, benefits, and alternatives discussed with the patient in great detail. I have recommended immediate I&D of the incision. The infection is progressing rapidly and it is above a joint replacement and I do not want the knee to become infected if it is not already. Recommend that we open the incision, irrigate and debride it, and inspect out the knee joint itself and wash the knee joint out as well and place the patient on extended antibiotics as per Infectious Disease. I went through risks, benefits, and alternatives with the patient. Patient agrees and would like to proceed immediately in doing this case, although the patient did eat about 1-1/2 hours prior. Due to the rapidly progressing nature of this, I do not want to wait 8 hours to perform this irrigation. I have told the patient the increased potential risk of doing it after she has eaten. She says she only had a small amount, but still, was made appraised of the potential complications due to eating close to surgery. Anesthesia has been made aware of this and would like to proceed. The patient will go to the OR within the next hour or so for I&D and irrigation and debridement. VIKAS GARCIA M.D. [id number]
[2016-11-03 08:27] LABS: BASOPHIL 0.1 % (0-2.0); MCH 33.9 pg (25.7-33.7); MCHC 34.2 g/dl (32.0-36.0); MEAN CELL VOLUME 99.1 fl (80-96); MEAN PLT VOLUME 8.3 fl (7.5-11.1); NEUTROPHILS 83.6 % (42.8-82.8); PLATELET COUNT 184 K/MM3 (134-434); RDW 14.3 % (11.6-15.6); WHITE BLOOD COUNT 8.5 K/mm3 (4.0-10.0)
[2016-11-03 08:34] LABS: MCH 33.9 pg (25.7-33.7); MCHC 34.3 g/dl (32.0-36.0); MEAN CELL VOLUME 98.9 fl (80-96); MEAN PLT VOLUME 8.4 fl (7.5-11.1); PLATELET COUNT 185 K/MM3 (134-434); RDW 14.5 % (11.6-15.6); WHITE BLOOD COUNT 8.7 K/mm3 (4.0-10.0)
[2016-11-03 08:55] LABS: ANION GAP 10 (8-16); CALCIUM 9.1 mg/dL (8.5-10.1); CO2 26 mmol/L (21-32); CREATININE 0.5 mg/dL (0.55-1.02); GLUCOSE,RANDOM 146 mg/dL (74-106); MAGNESIUM 2.1 mg/dL (1.8-2.4); PHOSPHOROUS 3.2 mg/dL (2.5-4.9)
[2016-11-03] MEDS ORDERED: PT OWN MED DRAWER 7, Y5N ONE (09:23)
[2016-11-03] MEDS: amLODIPine BESYLATE 5 MG TABLET (FP) PO SCH (09:28)
[2016-11-03] MEDS: SERTRALINE HCL 50 MG TABLET (FP) PO SCH (09:28)
[2016-11-03] MEDS: oxyCODONE HCL 5 MG TABLET PO PRN (09:29)
[2016-11-03] MEDS: MULTIVITAMINS (DAILY MVI) TABLET (FP) PO SCH (09:29)
[2016-11-03] MEDS: DOCUSATE SODIUM 100 MG CAPSULE (FP) PO SCH ×2 (09:29→22:46)
[2016-11-03] MEDS: NICOTINE 14 MG/24 HOURS TOPICAL PATCH TD SCH (09:30)
[2016-11-03] MEDS: POLYETHYLENE GLYCOL 3350 119 GM BTL PO SCH (09:31)
[2016-11-03] MEDS: ENOXAPARIN NA (PORCINE) 40 MG/0.4 ML DISP.SYRIN SQ SCH (09:31)
[2016-11-03] MEDS ORDERED: SERTRALINE HCL 50 MG TABLET (FP) PO SCH (10:00)
[2016-11-03] MEDS ORDERED: MULTIVITAMINS (DAILY MVI) TABLET (FP) PO SCH (10:00)
[2016-11-03] MEDS ORDERED: amLODIPine BESYLATE 5 MG TABLET (FP) PO SCH (10:00)
[2016-11-03] MEDS ORDERED: POLYETHYLENE GLYCOL 3350 119 GM BTL PO SCH (10:00)
[2016-11-03] MEDS ORDERED: ENOXAPARIN NA (PORCINE) 40 MG/0.4 ML DISP.SYRIN SQ SCH (10:00)
--- NOTE | 2016-11-03 11:43 | PN ---
Progress Note, Physician History of Present Illness: S/P I&D L knee No complaints of pain at present Temps down- afebrile BC presumptive MSSA Wound c/s pending - Current Medication List Current Medications: Active Medications Acetaminophen (Tylenol -) 325 mg PO Q6H PRN PRN Reason: FEVER OR PAIN Al Hydroxide/Mg Hydroxide (Mylanta Oral Suspension -) 30 ml PO Q4H PRN PRN Reason: DYSPEPSIA Albuterol Sulfate (Ventolin Hfa Inhaler -) 2 puff IH Q4H PRN PRN Reason: WHEEZING Alprazolam (Xanax -) 1 mg PO QID PRN PRN Reason: ANXIETY Last Admin: 11/02/16 21:27 Dose: 1 mg Amlodipine Besylate (Norvasc -) 5 mg PO DAILY [facility] Last Admin: 11/03/16 09:28 Dose: 5 mg Docusate Sodium (Colace -) 100 mg PO BID [facility] Last Admin: 11/03/16 09:29 Dose: 100 mg Enoxaparin Sodium (Lovenox -) 40 mg SQ DAILY [facility] Last Admin: 11/03/16 09:31 Dose: 40 mg Gabapentin (Neurontin -) 300 mg PO QID [facility] Last Admin: 11/03/16 09:28 Dose: 300 mg Sodium Chloride (Normal Saline -) 1,000 mls @ 75 mls/hr IV ASDIR [facility] Last Admin: 11/03/16 05:57 Dose: 75 mls/hr Vancomycin HCl (Vancomycin (Pre-Docked)) 250 mls @ 250 mls/hr IVPB Q12H [facility] Last Admin: 11/03/16 00:14 Dose: 250 mls/hr Piperacillin Sod/Tazobactam Sod (Zosyn 3.375gm Ivpb (Pre-Docked)) 50 mls @ 100 mls/hr IVPB Q8H-IV AFUA PRN Reason: Protocol Last Admin: 11/03/16 09:32 Dose: 100 mls/hr Morphine Sulfate (Morphine Injection -) 2 mg IVPUSH Q4H PRN PRN Reason: PAIN Multivitamins/Minerals/Vitamin C (Tab-A-Vit -) 1 tab PO DAILY [facility] Last Admin: 11/03/16 09:29 Dose: 1 tab Nicotine (Nicoderm Patch -) 14 mg TD DAILY [facility] Last Admin: 11/03/16 09:30 Dose: Not Given Ondansetron HCl (Zofran Injection) 4 mg IVPB Q6H PRN PRN Reason: NAUSEA AND/OR VOMITING Oxycodone HCl (Roxicodone -) 10 mg PO Q6H PRN Last Admin: 11/03/16 09:29 Dose: 10 mg Polyethylene Glycol (Miralax (For Daily Use) -) 17 gm PO DAILY [facility] Last Admin: 11/03/16 09:31 Dose: 17 gm Sertraline HCl (Zoloft -) 100 mg PO DAILY [facility] Last Admin: 11/03/16 09:28 Dose: 100 mg - Objective Vital Signs: Vital Signs Temperature 98.1 F 11/03/16 09:41 Pulse Rate 89 11/03/16 09:41 Respiratory Rate 20 11/03/16 09:41 Blood Pressure 113/65 11/03/16 09:41 O2 Sat by Pulse Oximetry (%) 96 11/03/16 09:00 Constitutional: Yes: No Distress Eyes: Yes: Conjunctiva Clear Cardiovascular: Yes: Regular Rate and Rhythm, S1, S2 Respiratory: Yes: CTA Bilaterally Gastrointestinal: Yes: Normal Bowel Sounds, Soft. No: Tenderness Extremities: Yes: Other (post operative dressing in place L LE) Labs: CBC, BMP 11/03/16 07:55 11/03/16 07:55 INR, PTT INR 0.98 (0.82-1.09) 11/01/16 18:30 Assessment/Plan S/P I&D L knee +BC, likely staph bacteremia/ sepsis from wound source S/P partial L knee replacement Await c/s Continue empiric vancomycin/ zosyn
--- NOTE | 2016-11-03 11:54 | PN ---
Progress Note, Physician Chief Complaint: Ms Mora says she is feeling much better today. Still with pain in her knee but improved. No cp, sob, n/v. - Current Medication List Current Medications: Active Medications Acetaminophen (Tylenol -) 325 mg PO Q6H PRN PRN Reason: FEVER OR PAIN Al Hydroxide/Mg Hydroxide (Mylanta Oral Suspension -) 30 ml PO Q4H PRN PRN Reason: DYSPEPSIA Albuterol Sulfate (Ventolin Hfa Inhaler -) 2 puff IH Q4H PRN PRN Reason: WHEEZING Alprazolam (Xanax -) 1 mg PO QID PRN PRN Reason: ANXIETY Last Admin: 11/02/16 21:27 Dose: 1 mg Amlodipine Besylate (Norvasc -) 5 mg PO DAILY [facility] Last Admin: 11/03/16 09:28 Dose: 5 mg Docusate Sodium (Colace -) 100 mg PO BID [facility] Last Admin: 11/03/16 09:29 Dose: 100 mg Enoxaparin Sodium (Lovenox -) 40 mg SQ DAILY [facility] Last Admin: 11/03/16 09:31 Dose: 40 mg Gabapentin (Neurontin -) 300 mg PO QID [facility] Last Admin: 11/03/16 09:28 Dose: 300 mg Sodium Chloride (Normal Saline -) 1,000 mls @ 75 mls/hr IV ASDIR [facility] Last Admin: 11/03/16 05:57 Dose: 75 mls/hr Vancomycin HCl (Vancomycin (Pre-Docked)) 250 mls @ 250 mls/hr IVPB Q12H [facility] Last Admin: 11/03/16 00:14 Dose: 250 mls/hr Piperacillin Sod/Tazobactam Sod (Zosyn 3.375gm Ivpb (Pre-Docked)) 50 mls @ 100 mls/hr IVPB Q8H-IV AFUA PRN Reason: Protocol Last Admin: 11/03/16 09:32 Dose: 100 mls/hr Morphine Sulfate (Morphine Injection -) 2 mg IVPUSH Q4H PRN PRN Reason: PAIN Multivitamins/Minerals/Vitamin C (Tab-A-Vit -) 1 tab PO DAILY [facility] Last Admin: 11/03/16 09:29 Dose: 1 tab Nicotine (Nicoderm Patch -) 14 mg TD DAILY [facility] Last Admin: 11/03/16 09:30 Dose: Not Given Ondansetron HCl (Zofran Injection) 4 mg IVPB Q6H PRN PRN Reason: NAUSEA AND/OR VOMITING Oxycodone HCl (Roxicodone -) 10 mg PO Q6H PRN Last Admin: 11/03/16 09:29 Dose: 10 mg Polyethylene Glycol (Miralax (For Daily Use) -) 17 gm PO DAILY [facility] Last Admin: 11/03/16 09:31 Dose: 17 gm Sertraline HCl (Zoloft -) 100 mg PO DAILY [facility] Last Admin: 11/03/16 09:28 Dose: 100 mg - Objective Vital Signs: Vital Signs Temperature 98.1 F 11/03/16 09:41 Pulse Rate 89 11/03/16 09:41 Respiratory Rate 20 11/03/16 09:41 Blood Pressure 113/65 11/03/16 09:41 O2 Sat by Pulse Oximetry (%) 96 11/03/16 09:00 Constitutional: Yes: Well Nourished, No Distress, Calm Cardiovascular: Yes: Regular Rate and Rhythm. No: Gallop, Murmur, Rub Respiratory: Yes: Regular, CTA Bilaterally. No: Rales, Rhonchi, Wheezes Gastrointestinal: Yes: Normal Bowel Sounds, Soft. No: Distention, Tenderness Extremities: Yes: WNL Edema: No Labs: CBC, BMP 11/03/16 07:55 11/03/16 07:55 INR, PTT INR 0.98 (0.82-1.09) 11/01/16 18:30 Problem List - Problems (1) Wound infection Code(s): T14.8 - OTHER INJURY OF UNSPECIFIED BODY REGION L08.9 - LOCAL INFECTION OF THE SKIN AND SUBCUTANEOUS TISSUE, UNSP (2) Hypertension Code(s): I10 - ESSENTIAL (PRIMARY) HYPERTENSION (3) Tobacco abuse Code(s): Z72.0 - TOBACCO USE (4) Anxiety Code(s): F41.9 - ANXIETY DISORDER, UNSPECIFIED Assessment/Plan (1) Wound infection with MSSA sepsis Assessment/Plan: -patient taken to the OR yesterday for I&D and washout -improved today -blood culture growing MSSA -ID following, will most likely need 2 weeks antibiotics -continue current management Code(s): T14.8 - OTHER INJURY OF UNSPECIFIED BODY REGION L08.9 - LOCAL INFECTION OF THE SKIN AND SUBCUTANEOUS TISSUE, UNSP (2) Hypertension Assessment/Plan: -continue amlodipine Code(s): I10 - ESSENTIAL (PRIMARY) HYPERTENSION (3) Tobacco abuse Assessment/Plan: -nicotine patch ordered Code(s): Z72.0 - TOBACCO USE (4) Anxiety Assessment/Plan: -continue home anxiety regimen Code(s): F41.9 - ANXIETY DISORDER, UNSPECIFIED
--- NOTE | 2016-11-03 14:18 | OP ---
DATE OF OPERATION: 11/02/2016 PREOPERATIVE DIAGNOSIS: Surgical site infection, left knee. POSTOPERATIVE DIAGNOSIS: Infected left knee. PROCEDURE: Open irrigation and debridement left knee. SURGICAL ATTENDING: Lane Bryan MD ANESTHESIA: General with endotracheal intubation. POSITION: Supine. CLOSURE: 0 Vicryl fascia, 2-0 Vicryl subcutaneous, and 3-0 nylon horizontal mattress for skin. ESTIMATED BLOOD LOSS: Approximately 50 mL. COMPLICATIONS: None. CONDITION: To recovery room in stable condition. DESCRIPTION OF OPERATIVE PROCEDURE: Patient was taken to the operating room on November 02, 2016. IV antibiotics had already been administered on the floor prior to the visit to the OR. General anesthesia with endotracheal intubation was administered by the anesthesiologist. Left lower extremity was prepped and draped in the usual sterile fashion. The previous incision was used to gain access to the knee. A cm longitudinal incision over the incision was made. Once getting through the subcutaneous down to the level prior to the fascia, there was a large pocket of fluid and purulence. Cultures were taken and sent to microbiology. This area was pulse antibiotic irrigated and cleaned. At this time the fascia was opened to see if the joint itself was infected. It was much less, but definitely present fluid and some purulence inside the knee joint. It was decided to open the entire fascia of the previous incision. All the Vicryl sutures in this region were removed. The knee was pulse antibiotic irrigated with 9 L of antibiotic irrigation. The components were scrubbed and were found to be stable throughout. A Hemovac was placed exiting superolaterally. Vancomycin powder was placed into the knee joint. Then, the fascia was closed. Once the fascia was closed, the area above the fascia was antibiotic irrigated and closed in layers 0 Vicryl and 2-0 Vicryl, and then 3-0 nylon and horizontal mattress for skin. Xeroform pressure dressing was applied. Patient was awakened from anesthesia and transferred to recovery room in stable condition. No complications. Estimated blood loss was 100 mL. Walter [id number]
--- NOTE | 2016-11-03 14:47 | PN ---
Progress Note (short form) - Note Progress Note: ANESTHESIOLOGY POST-OP CHECK 46F s/p left knee I&D under general anesthesia, POD #1. C/o pain 8/10. Denies N/ V, wants to get out of bed. Mild cough. Vital Signs Temperature 98.1 F 11/03/16 09:41 Pulse Rate 89 11/03/16 09:41 Respiratory Rate 20 11/03/16 09:41 Blood Pressure 113/65 11/03/16 09:41 O2 Sat by Pulse Oximetry (%) 96 11/03/16 09:00 Active Medications Acetaminophen (Tylenol -) 325 mg PO Q6H PRN PRN Reason: FEVER OR PAIN Al Hydroxide/Mg Hydroxide (Mylanta Oral Suspension -) 30 ml PO Q4H PRN PRN Reason: DYSPEPSIA Albuterol Sulfate (Ventolin Hfa Inhaler -) 2 puff IH Q4H PRN PRN Reason: WHEEZING Alprazolam (Xanax -) 1 mg PO QID PRN PRN Reason: ANXIETY Last Admin: 11/02/16 21:27 Dose: 1 mg Amlodipine Besylate (Norvasc -) 5 mg PO DAILY [facility] Last Admin: 11/03/16 09:28 Dose: 5 mg Docusate Sodium (Colace -) 100 mg PO BID [facility] Last Admin: 11/03/16 09:29 Dose: 100 mg Enoxaparin Sodium (Lovenox -) 40 mg SQ DAILY [facility] Last Admin: 11/03/16 09:31 Dose: 40 mg Gabapentin (Neurontin -) 300 mg PO QID [facility] Last Admin: 11/03/16 09:28 Dose: 300 mg Sodium Chloride (Normal Saline -) 1,000 mls @ 75 mls/hr IV ASDIR [facility] Last Admin: 11/03/16 05:57 Dose: 75 mls/hr Vancomycin HCl (Vancomycin (Pre-Docked)) 250 mls @ 250 mls/hr IVPB Q12H [facility] Last Admin: 11/03/16 11:58 Dose: 250 mls/hr Piperacillin Sod/Tazobactam Sod (Zosyn 3.375gm Ivpb (Pre-Docked)) 50 mls @ 100 mls/hr IVPB Q8H-IV [facility] PRN Reason: Protocol Last Admin: 11/03/16 09:32 Dose: 100 mls/hr Morphine Sulfate (Morphine Injection -) 4 mg IVPUSH Q4H PRN PRN Reason: PAIN Multivitamins/Minerals/Vitamin C (Tab-A-Vit -) 1 tab PO DAILY [facility] Last Admin: 11/03/16 09:29 Dose: 1 tab Nicotine (Nicoderm Patch -) 14 mg TD DAILY [facility] Last Admin: 11/03/16 09:30 Dose: Not Given Ondansetron HCl (Zofran Injection) 4 mg IVPB Q6H PRN PRN Reason: NAUSEA AND/OR VOMITING Oxycodone HCl (Roxicodone -) 10 mg PO Q6H PRN Last Admin: 11/03/16 09:29 Dose: 10 mg Polyethylene Glycol (Miralax (For Daily Use) -) 17 gm PO DAILY [facility] Last Admin: 11/03/16 09:31 Dose: 17 gm Sertraline HCl (Zoloft -) 100 mg PO DAILY [facility] Last Admin: 11/03/16 09:28 Dose: 100 mg Gen: Awake, alert No apparent anesthesia complications. Increased morphine to 4 mg doses and ordered incentive spirometer. Continue management as per primary team.
[2016-11-03] MEDS: ALPRAZolam 0.25 MG TABLET PO PRN ×2 (17:13→22:45)
[2016-11-03] MEDS: morphine CARPU-JECT 4 MG/1 ML DISP.SYRIN IVPUSH PRN ×2 (17:13→22:44)
--- NOTE | 2016-11-03 22:27 | PN ---
Progress Note (short form) - Note Progress Note: AVSS MUCH MORE COMFORTABLE TODAY MINIMAL DRAINAGE FROM DRAIN -->DCed BANDAGES DRY AND INTACT CALF SOFT AND NT + ABILITY TO STRAIGHT LEG RAISE WBC WNL, NHS=933 CRP=40 MICRO= GRAM + COCCI I BLOOD AND KNEE IMP: SEPTIC JOINT RIGHT KNEE S/P PARTIAL RIGHT KNEE REPLACEMENT 1 MONTH AGO S/P I&D AND NOW ON EMPIRIC ABX PLAN: CONTINUE EMPIRIC ABX, AWAITING FINAL REPORT, KNEE IMMOBILIZER FOR NOW TO ALLOW KNEE TO CALM DOWN BUT SHE CAN BE WBAT AND OOB. SHE WILL NEED 6 WEEKS OF IV ABX AND PIC LINE
[2016-11-04] MEDS: oxyCODONE HCL 5 MG TABLET PO PRN ×2 (01:08→20:58)
[2016-11-04] MEDS: PIPERACILLIN/TAZOB 3.375 GM 50 ML IVPB SCH ×2 (01:54→10:42)
[2016-11-04] MEDS: morphine CARPU-JECT 4 MG/1 ML DISP.SYRIN IVPUSH PRN ×4 (06:13→20:04)
[2016-11-04 07:25] LABS: BASOPHIL 0.5 % (0-2.0); EOSINOPHIL 1.2 % (0-4.5); MCH 33.9 pg (25.7-33.7); MCHC 33.6 g/dl (32.0-36.0); MEAN CELL VOLUME 100.9 fl (80-96); MEAN PLT VOLUME 8.4 fl (7.5-11.1); NEUTROPHILS 66.4 % (42.8-82.8); PLATELET COUNT 191 K/MM3 (134-434); RDW 14.7 % (11.6-15.6); WHITE BLOOD COUNT 6.5 K/mm3 (4.0-10.0)
[2016-11-04 08:04] LABS: ANION GAP 6 (8-16); CALCIUM 8.6 mg/dL (8.5-10.1); CO2 29 mmol/L (21-32); CREATININE 0.6 mg/dL (0.55-1.02); GLUCOSE,RANDOM 116 mg/dL (74-106); MAGNESIUM 1.7 mg/dL (1.8-2.4); PHOSPHOROUS 3.5 mg/dL (2.5-4.9)
[2016-11-04] MEDS: amLODIPine BESYLATE 5 MG TABLET (FP) PO SCH (10:41)
[2016-11-04] MEDS: GABAPENTIN 300 MG CAPSULE (FP) PO SCH ×4 (10:41→21:48)
[2016-11-04] MEDS: ENOXAPARIN NA (PORCINE) 40 MG/0.4 ML DISP.SYRIN SQ SCH (10:41)
[2016-11-04] MEDS: DOCUSATE SODIUM 100 MG CAPSULE (FP) PO SCH ×2 (10:41→22:08)
[2016-11-04] MEDS: SERTRALINE HCL 50 MG TABLET (FP) PO SCH (10:42)
[2016-11-04] MEDS: NICOTINE 14 MG/24 HOURS TOPICAL PATCH TD SCH (10:42)
[2016-11-04] MEDS: MULTIVITAMINS (DAILY MVI) TABLET (FP) PO SCH (10:42)
[2016-11-04] MEDS ORDERED: POTASSIUM CHLORIDE TABS 20 MEQ TABLET.ER (FP) PO ONE (11:30)
--- NOTE | 2016-11-04 11:53 | PN ---
Progress Note, Physician Chief Complaint: Ms Mora is doing well. No cp, sob, n/v. Still with pain in her leg but improving. - Current Medication List Current Medications: Active Medications Acetaminophen (Tylenol -) 325 mg PO Q6H PRN PRN Reason: FEVER OR PAIN Al Hydroxide/Mg Hydroxide (Mylanta Oral Suspension -) 30 ml PO Q4H PRN PRN Reason: DYSPEPSIA Albuterol Sulfate (Ventolin Hfa Inhaler -) 2 puff IH Q4H PRN PRN Reason: WHEEZING Alprazolam (Xanax -) 1 mg PO QID PRN PRN Reason: ANXIETY Last Admin: 11/03/16 22:45 Dose: 1 mg Amlodipine Besylate (Norvasc -) 5 mg PO DAILY [facility] Last Admin: 11/04/16 10:41 Dose: 5 mg Docusate Sodium (Colace -) 100 mg PO BID [facility] Last Admin: 11/04/16 10:41 Dose: Not Given Enoxaparin Sodium (Lovenox -) 40 mg SQ DAILY [facility] Last Admin: 11/04/16 10:41 Dose: 40 mg Gabapentin (Neurontin -) 300 mg PO QID [facility] Last Admin: 11/04/16 10:41 Dose: 300 mg Sodium Chloride (Normal Saline -) 1,000 mls @ 75 mls/hr IV ASDIR [facility] Last Admin: 11/03/16 18:14 Dose: Not Given Vancomycin HCl (Vancomycin (Pre-Docked)) 250 mls @ 250 mls/hr IVPB Q12H [facility] Last Admin: 11/04/16 00:00 Dose: 250 mls/hr Piperacillin Sod/Tazobactam Sod (Zosyn 3.375gm Ivpb (Pre-Docked)) 50 mls @ 100 mls/hr IVPB Q8H-IV [facility] PRN Reason: Protocol Last Admin: 11/04/16 10:42 Dose: 100 mls/hr Magnesium Oxide (Mag-Ox -) 400 mg PO BID [facility] Morphine Sulfate (Morphine Injection -) 4 mg IVPUSH Q4H PRN PRN Reason: PAIN Last Admin: 11/04/16 10:43 Dose: 4 mg Multivitamins/Minerals/Vitamin C (Tab-A-Vit -) 1 tab PO DAILY [facility] Last Admin: 11/04/16 10:42 Dose: 1 tab Nicotine (Nicoderm Patch -) 14 mg TD DAILY [facility] Last Admin: 11/04/16 10:42 Dose: Not Given Ondansetron HCl (Zofran Injection) 4 mg IVPB Q6H PRN PRN Reason: NAUSEA AND/OR VOMITING Oxycodone HCl (Roxicodone -) 10 mg PO Q6H PRN Last Admin: 11/04/16 01:08 Dose: 10 mg Polyethylene Glycol (Miralax (For Daily Use) -) 17 gm PO DAILY [facility] Last Admin: 11/03/16 09:31 Dose: 17 gm Sertraline HCl (Zoloft -) 100 mg PO DAILY [facility] Last Admin: 11/04/16 10:42 Dose: 100 mg - Objective Vital Signs: Vital Signs Temperature 98.6 F 11/04/16 10:00 Pulse Rate 88 11/04/16 10:00 Respiratory Rate 20 11/04/16 10:00 Blood Pressure 125/65 11/04/16 10:00 O2 Sat by Pulse Oximetry (%) 97 11/03/16 22:00 Constitutional: Yes: Well Nourished, No Distress, Calm Cardiovascular: Yes: Regular Rate and Rhythm. No: Gallop, Murmur, Rub Respiratory: Yes: Regular, CTA Bilaterally. No: Rales, Rhonchi, Wheezes Gastrointestinal: Yes: Normal Bowel Sounds, Soft. No: Distention, Tenderness Extremities: Yes: WNL Edema: No Labs: CBC, BMP 11/04/16 06:45 11/04/16 06:45 INR, PTT INR 0.98 (0.82-1.09) 11/01/16 18:30 Problem List - Problems (1) Wound infection Code(s): T14.8 - OTHER INJURY OF UNSPECIFIED BODY REGION L08.9 - LOCAL INFECTION OF THE SKIN AND SUBCUTANEOUS TISSUE, UNSP (2) Hypertension Code(s): I10 - ESSENTIAL (PRIMARY) HYPERTENSION (3) Tobacco abuse Code(s): Z72.0 - TOBACCO USE (4) Anxiety Code(s): F41.9 - ANXIETY DISORDER, UNSPECIFIED Assessment/Plan (1) Wound infection with MSSA sepsis Assessment/Plan: -continues to improve -MSSA -ID following, defer changing antibiotics to their recommendation Code(s): T14.8 - OTHER INJURY OF UNSPECIFIED BODY REGION L08.9 - LOCAL INFECTION OF THE SKIN AND SUBCUTANEOUS TISSUE, UNSP (2) Hypertension Assessment/Plan: -continue amlodipine Code(s): I10 - ESSENTIAL (PRIMARY) HYPERTENSION (3) Tobacco abuse Assessment/Plan: -nicotine patch ordered Code(s): Z72.0 - TOBACCO USE (4) Anxiety Assessment/Plan: -continue home anxiety regimen Code(s): F41.9 - ANXIETY DISORDER, UNSPECIFIED
[2016-11-04] MEDS: POLYETHYLENE GLYCOL 3350 119 GM BTL PO SCH (12:35)
[2016-11-04] MEDS: MAGNESIUM OXIDE 400 MG TABLET (FP) PO SCH ×2 (12:36→21:47)
[2016-11-04] MEDS: VANCOMYCIN 1 GRAM (PRE-DOCKED) 250 ML IVPB SCH ×2 (12:37)
--- NOTE | 2016-11-04 13:12 | PN ---
Progress Note, Physician History of Present Illness: Reports less knee pain L LE in immobilizer No c/o fever/ chills BC, wound c/s MSSA - Current Medication List Current Medications: Active Medications Acetaminophen (Tylenol -) 325 mg PO Q6H PRN PRN Reason: FEVER OR PAIN Al Hydroxide/Mg Hydroxide (Mylanta Oral Suspension -) 30 ml PO Q4H PRN PRN Reason: DYSPEPSIA Albuterol Sulfate (Ventolin Hfa Inhaler -) 2 puff IH Q4H PRN PRN Reason: WHEEZING Alprazolam (Xanax -) 1 mg PO QID PRN PRN Reason: ANXIETY Last Admin: 11/03/16 22:45 Dose: 1 mg Amlodipine Besylate (Norvasc -) 5 mg PO DAILY [facility] Last Admin: 11/04/16 10:41 Dose: 5 mg Docusate Sodium (Colace -) 100 mg PO BID [facility] Last Admin: 11/04/16 10:41 Dose: Not Given Enoxaparin Sodium (Lovenox -) 40 mg SQ DAILY [facility] Last Admin: 11/04/16 10:41 Dose: 40 mg Gabapentin (Neurontin -) 300 mg PO QID [facility] Last Admin: 11/04/16 10:41 Dose: 300 mg Sodium Chloride (Normal Saline -) 1,000 mls @ 75 mls/hr IV ASDIR [facility] Last Admin: 11/03/16 18:14 Dose: Not Given Magnesium Oxide (Mag-Ox -) 400 mg PO BID [facility] Last Admin: 11/04/16 12:36 Dose: 400 mg Morphine Sulfate (Morphine Injection -) 4 mg IVPUSH Q4H PRN PRN Reason: PAIN Last Admin: 11/04/16 10:43 Dose: 4 mg Multivitamins/Minerals/Vitamin C (Tab-A-Vit -) 1 tab PO DAILY [facility] Last Admin: 11/04/16 10:42 Dose: 1 tab Nicotine (Nicoderm Patch -) 14 mg TD DAILY [facility] Last Admin: 11/04/16 10:42 Dose: Not Given Ondansetron HCl (Zofran Injection) 4 mg IVPB Q6H PRN PRN Reason: NAUSEA AND/OR VOMITING Oxycodone HCl (Roxicodone -) 10 mg PO Q6H PRN Last Admin: 11/04/16 01:08 Dose: 10 mg Polyethylene Glycol (Miralax (For Daily Use) -) 17 gm PO DAILY [facility] Last Admin: 11/04/16 12:35 Dose: Not Given Sertraline HCl (Zoloft -) 100 mg PO DAILY [facility] Last Admin: 11/04/16 10:42 Dose: 100 mg - Objective Vital Signs: Vital Signs Temperature 98.6 F 11/04/16 10:00 Pulse Rate 88 11/04/16 10:00 Respiratory Rate 20 11/04/16 10:00 Blood Pressure 125/65 11/04/16 10:00 O2 Sat by Pulse Oximetry (%) 97 11/03/16 22:00 Constitutional: Yes: No Distress Eyes: Yes: Conjunctiva Clear Cardiovascular: Yes: Regular Rate and Rhythm, S1, S2 Respiratory: Yes: CTA Bilaterally Gastrointestinal: Yes: Normal Bowel Sounds, Soft. No: Tenderness Extremities: Yes: Other (L LE in immobilizer) Labs: CBC, BMP 11/04/16 06:45 11/04/16 06:45 INR, PTT INR 0.98 (0.82-1.09) 11/01/16 18:30 Assessment/Plan S/P I&D L knee MSSA bacteremia secondary to wound source S/P partial L knee replacement D/C vanco/ zosyn Nafcillin 2gm q4h Echo Repeat BC
[2016-11-04] MEDS: NAFCILLIN - 2 GM in DEXTROSE 5%-WATER - 100 ML IVPB SCH ×3 (14:58→21:48)
[2016-11-04] MEDS: ALPRAZolam 0.25 MG TABLET PO PRN ×2 (15:35→21:47)
[2016-11-04] MEDS: SODIUM CHLORIDE 1,000 ML IV SCH ×2 (17:55→21:53)
[2016-11-04] MEDS: LACTOBACILLUS ACIDOPHILUS 1 EACH TAB (FP) PO SCH (20:04)
[2016-11-04] MEDS: ACETAMINOPHEN 325 MG TABLET (FP) PO PRN (20:59)
[2016-11-05] MEDS: morphine CARPU-JECT 4 MG/1 ML DISP.SYRIN IVPUSH PRN ×4 (00:04→19:41)
[2016-11-05] MEDS: NAFCILLIN - 2 GM in DEXTROSE 5%-WATER - 100 ML IVPB SCH ×6 (01:59→22:25)
[2016-11-05] MEDS: oxyCODONE HCL 5 MG TABLET PO PRN ×4 (03:45→22:24)
[2016-11-05] MEDS: ACETAMINOPHEN 325 MG TABLET (FP) PO PRN ×3 (03:45→17:21)
[2016-11-05] MEDS: ALPRAZolam 0.25 MG TABLET PO PRN ×4 (06:35→22:24)
[2016-11-05 07:45] LABS: BASOPHIL 0.5 % (0-2.0); EOSINOPHIL 0.9 % (0-4.5); MCH 33.8 pg (25.7-33.7); MEAN CELL VOLUME 99.5 fl (80-96); MEAN PLT VOLUME 7.8 fl (7.5-11.1); NEUTROPHILS 62.7 % (42.8-82.8); PLATELET COUNT 204 K/MM3 (134-434); RDW 14.4 % (11.6-15.6); WHITE BLOOD COUNT 5.8 K/mm3 (4.0-10.0)
--- NOTE | 2016-11-05 08:25 | PN ---
Progress Note (short form) - Note Progress Note: ID CONSULT APPRECIATED MICRO = MSSA. ABX ALTERED ACCORDINGLY INCISION CLEAN AND DRY. NO EFFUSION IMP: IMPROVING PLAN: ABX PER ID. REPEAT BLOOD CXS ORDEREDE. WILL ORDER PIC LINE ONCE MEDICALLY CLEARED TO GO HOME ON HOME IV ABX REGIMEN.
[2016-11-05 08:37] LABS: ANION GAP 10 (8-16); CALCIUM 8.8 mg/dL (8.5-10.1); CO2 27 mmol/L (21-32); CREATININE 0.5 mg/dL (0.55-1.02); GLUCOSE,RANDOM 128 mg/dL (74-106); MAGNESIUM 1.9 mg/dL (1.8-2.4); PHOSPHOROUS 4.1 mg/dL (2.5-4.9)
[2016-11-05] MEDS ORDERED: PT OWN MED DRAWER 7, Y5N ONE ×2 (09:33→22:21)
[2016-11-05] MEDS: POLYETHYLENE GLYCOL 3350 119 GM BTL PO SCH (09:36)
[2016-11-05] MEDS: NICOTINE 14 MG/24 HOURS TOPICAL PATCH TD SCH ×2 (09:40→15:33)
[2016-11-05] MEDS: ENOXAPARIN NA (PORCINE) 40 MG/0.4 ML DISP.SYRIN SQ SCH (09:40)
[2016-11-05] MEDS: GABAPENTIN 300 MG CAPSULE (FP) PO SCH ×4 (09:41→22:23)
[2016-11-05] MEDS: MAGNESIUM OXIDE 400 MG TABLET (FP) PO SCH ×2 (09:41→22:23)
[2016-11-05] MEDS: LACTOBACILLUS ACIDOPHILUS 1 EACH TAB (FP) PO SCH (09:41)
[2016-11-05] MEDS: DOCUSATE SODIUM 100 MG CAPSULE (FP) PO SCH ×2 (09:41→22:23)
[2016-11-05] MEDS: amLODIPine BESYLATE 5 MG TABLET (FP) PO SCH (09:42)
[2016-11-05] MEDS: SERTRALINE HCL 50 MG TABLET (FP) PO SCH (09:43)
[2016-11-05] MEDS: MULTIVITAMINS (DAILY MVI) TABLET (FP) PO SCH (09:48)
[2016-11-05] MEDS ORDERED: POTASSIUM CHLORIDE TABS 20 MEQ TABLET.ER (FP) PO ONE (10:50)
[2016-11-05] MEDS: KCL 10 MEQ IVPB 100 ML IVPB SCH ×2 (11:01→11:55)
--- NOTE | 2016-11-05 12:30 | PN ---
Progress Note, Physician Chief Complaint: Ms Mora says she is feeling fatigued. Also her knee is still hurting. No cp, sob, n/v. - Current Medication List Current Medications: Active Medications Acetaminophen (Tylenol -) 325 mg PO Q6H PRN PRN Reason: FEVER OR PAIN Last Admin: 11/05/16 09:45 Dose: 325 mg Al Hydroxide/Mg Hydroxide (Mylanta Oral Suspension -) 30 ml PO Q4H PRN PRN Reason: DYSPEPSIA Albuterol Sulfate (Ventolin Hfa Inhaler -) 2 puff IH Q4H PRN PRN Reason: WHEEZING Alprazolam (Xanax -) 1 mg PO QID PRN PRN Reason: ANXIETY Last Admin: 11/05/16 09:42 Dose: 1 mg Amlodipine Besylate (Norvasc -) 5 mg PO DAILY [facility] Last Admin: 11/05/16 09:42 Dose: 5 mg Docusate Sodium (Colace -) 100 mg PO BID [facility] Last Admin: 11/05/16 09:41 Dose: Not Given Enoxaparin Sodium (Lovenox -) 40 mg SQ DAILY [facility] Last Admin: 11/05/16 09:40 Dose: 40 mg Gabapentin (Neurontin -) 300 mg PO QID [facility] Last Admin: 11/05/16 09:41 Dose: 300 mg Sodium Chloride (Normal Saline -) 1,000 mls @ 75 mls/hr IV ASDIR [facility] Last Admin: 11/04/16 21:53 Dose: 75 mls/hr Nafcillin Sodium 2 gm/ (Dextrose) 100 mls @ 100 mls/hr IVPB Q4H-IV [facility] PRN Reason: Protocol Last Admin: 11/05/16 09:35 Dose: 100 mls/hr Potassium Chloride (Potassium Chloride 10 Meq Premix Ivpb -) 100 mls @ 100 mls/ hr IVPB Q60M [facility] Stop: 11/05/16 12:44 Last Admin: 11/05/16 11:55 Dose: 100 mls/hr Lactobacillus Acidophilus (Bacid -) 1 tab PO DAILY [facility] Last Admin: 11/05/16 09:41 Dose: 1 tab Magnesium Oxide (Mag-Ox -) 400 mg PO BID [facility] Last Admin: 11/05/16 09:41 Dose: 400 mg Morphine Sulfate (Morphine Injection -) 4 mg IVPUSH Q4H PRN PRN Reason: PAIN Last Admin: 11/05/16 06:36 Dose: 4 mg Multivitamins/Minerals/Vitamin C (Tab-A-Vit -) 1 tab PO DAILY [facility] Last Admin: 11/05/16 09:48 Dose: 1 tab Nicotine (Nicoderm Patch -) 14 mg TD DAILY [facility] Last Admin: 11/05/16 09:40 Dose: Not Given Ondansetron HCl (Zofran Injection) 4 mg IVPB Q6H PRN PRN Reason: NAUSEA AND/OR VOMITING Oxycodone HCl (Roxicodone -) 10 mg PO Q6H PRN Last Admin: 11/05/16 09:42 Dose: 10 mg Polyethylene Glycol (Miralax (For Daily Use) -) 17 gm PO DAILY [facility] Last Admin: 11/05/16 09:36 Dose: Not Given Sertraline HCl (Zoloft -) 100 mg PO DAILY [facility] Last Admin: 11/05/16 09:43 Dose: 100 mg - Objective Vital Signs: Vital Signs Temperature 98.6 F 11/05/16 10:00 Pulse Rate 89 11/05/16 10:00 Respiratory Rate 18 11/05/16 10:00 Blood Pressure 117/74 11/05/16 10:00 O2 Sat by Pulse Oximetry (%) 97 11/05/16 10:00 Constitutional: Yes: Well Nourished, No Distress, Calm Cardiovascular: Yes: Regular Rate and Rhythm. No: Gallop, Murmur, Rub Respiratory: Yes: Regular, CTA Bilaterally. No: Rales, Rhonchi, Wheezes Gastrointestinal: Yes: Normal Bowel Sounds, Soft. No: Distention, Tenderness Extremities: Yes: Other (L knee with bandage, serosanguinous fluid) Edema: No Labs: CBC, BMP 11/05/16 06:30 11/05/16 06:30 INR, PTT INR 0.98 (0.82-1.09) 11/01/16 18:30 Problem List - Problems (1) Wound infection Code(s): T14.8 - OTHER INJURY OF UNSPECIFIED BODY REGION L08.9 - LOCAL INFECTION OF THE SKIN AND SUBCUTANEOUS TISSUE, UNSP (2) Hypertension Code(s): I10 - ESSENTIAL (PRIMARY) HYPERTENSION (3) Tobacco abuse Code(s): Z72.0 - TOBACCO USE (4) Anxiety Code(s): F41.9 - ANXIETY DISORDER, UNSPECIFIED Assessment/Plan (1) Wound infection with MSSA sepsis Assessment/Plan: -ID following -blood cultures growing MSSA -placed on nafcillin -ECHO performed, will follow up -repeat blood cultures sent Code(s): T14.8 - OTHER INJURY OF UNSPECIFIED BODY REGION L08.9 - LOCAL INFECTION OF THE SKIN AND SUBCUTANEOUS TISSUE, UNSP (2) Hypertension Assessment/Plan: -continue amlodipine Code(s): I10 - ESSENTIAL (PRIMARY) HYPERTENSION (3) Tobacco abuse Assessment/Plan: -continue nicotine patch Code(s): Z72.0 - TOBACCO USE (4) Anxiety Assessment/Plan: -continue home anxiety regimen Code(s): F41.9 - ANXIETY DISORDER, UNSPECIFIED (5) Hypokalemia -replace -recheck in am
--- NOTE | 2016-11-05 14:54 | PN ---
Progress Note, Physician History of Present Illness: Has L knee pain with wt bearing No c/o fever/ chills Tolerating antibiotics - Current Medication List Current Medications: Active Medications Acetaminophen (Tylenol -) 325 mg PO Q6H PRN PRN Reason: FEVER OR PAIN Last Admin: 11/05/16 09:45 Dose: 325 mg Al Hydroxide/Mg Hydroxide (Mylanta Oral Suspension -) 30 ml PO Q4H PRN PRN Reason: DYSPEPSIA Albuterol Sulfate (Ventolin Hfa Inhaler -) 2 puff IH Q4H PRN PRN Reason: WHEEZING Alprazolam (Xanax -) 1 mg PO QID PRN PRN Reason: ANXIETY Last Admin: 11/05/16 09:42 Dose: 1 mg Amlodipine Besylate (Norvasc -) 5 mg PO DAILY [facility] Last Admin: 11/05/16 09:42 Dose: 5 mg Docusate Sodium (Colace -) 100 mg PO BID [facility] Last Admin: 11/05/16 09:41 Dose: Not Given Enoxaparin Sodium (Lovenox -) 40 mg SQ DAILY [facility] Last Admin: 11/05/16 09:40 Dose: 40 mg Gabapentin (Neurontin -) 300 mg PO QID [facility] Last Admin: 11/05/16 13:09 Dose: 300 mg Sodium Chloride (Normal Saline -) 1,000 mls @ 75 mls/hr IV ASDIR [facility] Last Admin: 11/04/16 21:53 Dose: 75 mls/hr Nafcillin Sodium 2 gm/ (Dextrose) 100 mls @ 100 mls/hr IVPB Q4H-IV [facility] PRN Reason: Protocol Last Admin: 11/05/16 14:10 Dose: 100 mls/hr Lactobacillus Acidophilus (Bacid -) 1 tab PO DAILY [facility] Last Admin: 11/05/16 09:41 Dose: 1 tab Magnesium Oxide (Mag-Ox -) 400 mg PO BID [facility] Last Admin: 11/05/16 09:41 Dose: 400 mg Morphine Sulfate (Morphine Injection -) 4 mg IVPUSH Q4H PRN PRN Reason: PAIN Last Admin: 11/05/16 13:14 Dose: 4 mg Multivitamins/Minerals/Vitamin C (Tab-A-Vit -) 1 tab PO DAILY [facility] Last Admin: 11/05/16 09:48 Dose: 1 tab Nicotine (Nicoderm Patch -) 14 mg TD DAILY [facility] Last Admin: 11/05/16 09:40 Dose: Not Given Ondansetron HCl (Zofran Injection) 4 mg IVPB Q6H PRN PRN Reason: NAUSEA AND/OR VOMITING Oxycodone HCl (Roxicodone -) 10 mg PO Q6H PRN Last Admin: 11/05/16 09:42 Dose: 10 mg Polyethylene Glycol (Miralax (For Daily Use) -) 17 gm PO DAILY [facility] Last Admin: 11/05/16 09:36 Dose: Not Given Sertraline HCl (Zoloft -) 100 mg PO DAILY [facility] Last Admin: 11/05/16 09:43 Dose: 100 mg - Objective Vital Signs: Vital Signs Temperature 98.6 F 11/05/16 10:00 Pulse Rate 89 11/05/16 10:00 Respiratory Rate 18 11/05/16 10:00 Blood Pressure 117/74 11/05/16 10:00 O2 Sat by Pulse Oximetry (%) 97 11/05/16 10:00 Constitutional: Yes: No Distress Eyes: Yes: Conjunctiva Clear Cardiovascular: Yes: Regular Rate and Rhythm, S1, S2 Respiratory: Yes: CTA Bilaterally Gastrointestinal: Yes: Normal Bowel Sounds, Soft. No: Tenderness Extremities: Yes: Other (L knee surgical wound with sutures in place) Labs: CBC, BMP 11/05/16 06:30 11/05/16 06:30 INR, PTT INR 0.98 (0.82-1.09) 11/01/16 18:30 Assessment/Plan S/P I&D L knee MSSA bacteremia secondary to wound source S/P partial L knee replacement Nafcillin 2gm q4h Echo pending Repeat BC obtained Will need senior living IV antibiotic therapy as outpatient ( Cefazolin 2gm IVPB q8h x 6 weeks)
[2016-11-05] MEDS: SODIUM CHLORIDE 1,000 ML IV SCH (18:28)
[2016-11-06] MEDS: morphine CARPU-JECT 4 MG/1 ML DISP.SYRIN IVPUSH PRN ×2 (00:05→09:29)
[2016-11-06] MEDS ORDERED: LORATADINE 10 MG TABLET PO ONE (03:00)
[2016-11-06] MEDS ORDERED: PT OWN MED DRAWER 7, Y5N ONE ×5 (03:10→21:22)
[2016-11-06] MEDS: NAFCILLIN - 2 GM in DEXTROSE 5%-WATER - 100 ML IVPB SCH ×6 (03:13→21:25)
--- NOTE | 2016-11-06 03:40 | HOSP ---
Subjective - Review of Symptoms Events since last encounter: Called to bedside for acute mental status change. Physical Examination Vital Signs: Vital Signs Temperature 99.2 F 11/05/16 18:00 Pulse Rate 103 H 11/05/16 18:00 Respiratory Rate 18 11/05/16 18:00 Blood Pressure 132/62 11/05/16 18:00 O2 Sat by Pulse Oximetry (%) 97 11/05/16 10:00 Neurological: Yes: Alert, Oriented Psychiatric: Yes: Alert, Oriented, Other (No auditory or visual hallucinations, no illusions) Labs: CBC, BMP 11/05/16 06:30 11/05/16 06:30 Hospitalist Encounter Assessment: Patient was evaluated at bedside by Attending Dr. Monroy, ROSE GROWER [place] Boone, and residents Mariya Mccabe and Dafne Celis. Patient was found to be awake, alert, and fully oriented x3 (knows name, current date and current [place] president). Patient was able to accurately describe hospital roommate. Patient had no focal neurological deficits, normal speech rate and tone, no auditory or visual hallucinations. Patient's affect mildly agitated. Discussed with nursing janitor supervisor and RN that patient's pain medications ( Roxicodone and morphine) could be attributing to upset mood. Dr. Pulido made aware. No further work-up needed. Maia Celis MD PGY-1 Recommendations/Interventions: None Visit type - Emergency Visit Emergency Visit: No - New Patient This patient is new to me today: Yes Date on this admission: 11/06/16 - Critical Care Critical Care patient: No
[2016-11-06 07:58] LABS: BASOPHIL 0.5 % (0-2.0); EOSINOPHIL 0.6 % (0-4.5); MCHC 34.7 g/dl (32.0-36.0); MEAN CELL VOLUME 97.8 fl (80-96); MEAN PLT VOLUME 8.2 fl (7.5-11.1); PLATELET COUNT 268 K/MM3 (134-434); RDW 14.1 % (11.6-15.6); WHITE BLOOD COUNT 8.7 K/mm3 (4.0-10.0)
[2016-11-06 08:10] LABS: ANION GAP 12 (8-16); CO2 27 mmol/L (21-32); CREATININE 0.4 mg/dL (0.55-1.02); GLUCOSE,RANDOM 140 mg/dL (74-106); PHOSPHOROUS 3.8 mg/dL (2.5-4.9)
[2016-11-06] MEDS: SERTRALINE HCL 50 MG TABLET (FP) PO SCH (09:30)
[2016-11-06] MEDS: GABAPENTIN 300 MG CAPSULE (FP) PO SCH ×4 (09:30→21:24)
[2016-11-06] MEDS: ENOXAPARIN NA (PORCINE) 40 MG/0.4 ML DISP.SYRIN SQ SCH (09:30)
[2016-11-06] MEDS: MAGNESIUM OXIDE 400 MG TABLET (FP) PO SCH ×2 (09:30→21:24)
[2016-11-06] MEDS: LACTOBACILLUS ACIDOPHILUS 1 EACH TAB (FP) PO SCH (09:30)
[2016-11-06] MEDS: amLODIPine BESYLATE 5 MG TABLET (FP) PO SCH (09:30)
[2016-11-06] MEDS: POLYETHYLENE GLYCOL 3350 119 GM BTL PO SCH (09:31)
[2016-11-06] MEDS: NICOTINE 14 MG/24 HOURS TOPICAL PATCH TD SCH (09:31)
[2016-11-06] MEDS: MULTIVITAMINS (DAILY MVI) TABLET (FP) PO SCH (09:31)
[2016-11-06] MEDS: DOCUSATE SODIUM 100 MG CAPSULE (FP) PO SCH ×2 (09:31→21:24)
[2016-11-06] MEDS ORDERED: POTASSIUM CHLORIDE TABS 20 MEQ TABLET.ER (FP) PO ONE ×2 (10:00→12:45)
[2016-11-06] MEDS: KCL 10 MEQ IVPB 100 ML IVPB SCH ×3 (12:11→16:38)
--- NOTE | 2016-11-06 13:26 | PN ---
Progress Note, Physician History of Present Illness: No c/o knee pain at rest Ambulates with walker Afebrile - Current Medication List Current Medications: Active Medications Acetaminophen (Tylenol -) 325 mg PO Q6H PRN PRN Reason: FEVER OR PAIN Last Admin: 11/05/16 17:21 Dose: 325 mg Al Hydroxide/Mg Hydroxide (Mylanta Oral Suspension -) 30 ml PO Q4H PRN PRN Reason: DYSPEPSIA Albuterol Sulfate (Ventolin Hfa Inhaler -) 2 puff IH Q4H PRN PRN Reason: WHEEZING Alprazolam (Xanax -) 1 mg PO QID PRN PRN Reason: ANXIETY Last Admin: 11/05/16 22:24 Dose: 1 mg Amlodipine Besylate (Norvasc -) 5 mg PO DAILY [facility] Last Admin: 11/06/16 09:30 Dose: 5 mg Docusate Sodium (Colace -) 100 mg PO BID [facility] Last Admin: 11/06/16 09:31 Dose: Not Given Enoxaparin Sodium (Lovenox -) 40 mg SQ DAILY [facility] Last Admin: 11/06/16 09:30 Dose: 40 mg Gabapentin (Neurontin -) 300 mg PO QID [facility] Last Admin: 11/06/16 09:30 Dose: 300 mg Sodium Chloride (Normal Saline -) 1,000 mls @ 75 mls/hr IV ASDIR [facility] Last Admin: 11/05/16 18:28 Dose: 75 mls/hr Nafcillin Sodium 2 gm/ (Dextrose) 100 mls @ 100 mls/hr IVPB Q4H-IV [facility] PRN Reason: Protocol Last Admin: 11/06/16 09:30 Dose: 100 mls/hr Lactobacillus Acidophilus (Bacid -) 1 tab PO DAILY [facility] Last Admin: 11/06/16 09:30 Dose: 1 tab Magnesium Oxide (Mag-Ox -) 400 mg PO BID [facility] Last Admin: 11/06/16 09:30 Dose: 400 mg Morphine Sulfate (Morphine Injection -) 4 mg IVPUSH Q4H PRN PRN Reason: PAIN Last Admin: 11/06/16 09:29 Dose: 4 mg Multivitamins/Minerals/Vitamin C (Tab-A-Vit -) 1 tab PO DAILY [facility] Last Admin: 11/06/16 09:31 Dose: 1 tab Nicotine (Nicoderm Patch -) 14 mg TD DAILY [facility] Last Admin: 11/06/16 09:31 Dose: 14 mg Ondansetron HCl (Zofran Injection) 4 mg IVPB Q6H PRN PRN Reason: NAUSEA AND/OR VOMITING Oxycodone HCl (Roxicodone -) 10 mg PO Q6H PRN PRN Reason: PAIN Last Admin: 11/05/16 22:24 Dose: 10 mg Polyethylene Glycol (Miralax (For Daily Use) -) 17 gm PO DAILY [facility] Last Admin: 11/06/16 09:31 Dose: Not Given Sertraline HCl (Zoloft -) 100 mg PO DAILY [facility] Last Admin: 11/06/16 09:30 Dose: 100 mg - Objective Vital Signs: Vital Signs Temperature 98.9 F 11/06/16 09:43 Pulse Rate 91 H 11/06/16 09:43 Respiratory Rate 18 11/06/16 09:43 Blood Pressure 136/82 11/06/16 09:43 O2 Sat by Pulse Oximetry (%) 98 11/06/16 09:43 Constitutional: Yes: No Distress Eyes: Yes: Conjunctiva Clear Cardiovascular: Yes: Regular Rate and Rhythm, S1, S2 Respiratory: Yes: CTA Bilaterally Gastrointestinal: Yes: Normal Bowel Sounds, Soft. No: Tenderness Extremities: Yes: Other (L knee with sutures in place no wound drainage) Labs: CBC, BMP 11/06/16 05:35 11/06/16 05:35 INR, PTT INR 0.98 (0.82-1.09) 11/01/16 18:30 Assessment/Plan S/P I&D L knee MSSA bacteremia secondary to wound source S/P partial L knee replacement Nafcillin 2gm q4h Echo no vegetations Repeat BC prelim no growth Will need digital campaign specialist IV antibiotic therapy as outpatient ( Cefazolin 2gm IVPB q8h x 6 weeks)
[2016-11-06] MEDS: ALPRAZolam 0.25 MG TABLET PO PRN (13:41)
[2016-11-06] MEDS: oxyCODONE HCL 5 MG TABLET PO PRN ×2 (13:49→20:35)
--- NOTE | 2016-11-06 15:22 | PN ---
Progress Note, Physician Chief Complaint: Ms Mora says she had a tough night last night. She had difficulty sleeping. She says her pain is controlled. She denies cp, sob, n/v. - Current Medication List Current Medications: Active Medications Acetaminophen (Tylenol -) 325 mg PO Q6H PRN PRN Reason: FEVER OR PAIN Last Admin: 11/05/16 17:21 Dose: 325 mg Al Hydroxide/Mg Hydroxide (Mylanta Oral Suspension -) 30 ml PO Q4H PRN PRN Reason: DYSPEPSIA Albuterol Sulfate (Ventolin Hfa Inhaler -) 2 puff IH Q4H PRN PRN Reason: WHEEZING Alprazolam (Xanax -) 1 mg PO QID PRN PRN Reason: ANXIETY Last Admin: 11/06/16 13:41 Dose: 1 mg Amlodipine Besylate (Norvasc -) 5 mg PO DAILY [facility] Last Admin: 11/06/16 09:30 Dose: 5 mg Docusate Sodium (Colace -) 100 mg PO BID [facility] Last Admin: 11/06/16 09:31 Dose: Not Given Enoxaparin Sodium (Lovenox -) 40 mg SQ DAILY [facility] Last Admin: 11/06/16 09:30 Dose: 40 mg Gabapentin (Neurontin -) 300 mg PO QID [facility] Last Admin: 11/06/16 13:42 Dose: 300 mg Sodium Chloride (Normal Saline -) 1,000 mls @ 75 mls/hr IV ASDIR [facility] Last Admin: 11/05/16 18:28 Dose: 75 mls/hr Nafcillin Sodium 2 gm/ (Dextrose) 100 mls @ 100 mls/hr IVPB Q4H-IV AFUA PRN Reason: Protocol Last Admin: 11/06/16 13:38 Dose: 100 mls/hr Lactobacillus Acidophilus (Bacid -) 1 tab PO DAILY [facility] Last Admin: 11/06/16 09:30 Dose: 1 tab Magnesium Oxide (Mag-Ox -) 400 mg PO BID AF[facility] Last Admin: 11/06/16 09:30 Dose: 400 mg Morphine Sulfate (Morphine Injection -) 4 mg IVPUSH Q4H PRN PRN Reason: PAIN Last Admin: 11/06/16 09:29 Dose: 4 mg Multivitamins/Minerals/Vitamin C (Tab-A-Vit -) 1 tab PO DAILY [facility] Last Admin: 11/06/16 09:31 Dose: 1 tab Nicotine (Nicoderm Patch -) 14 mg TD DAILY COUNTS INCLUDE 234 BEDS AT THE [facility] Last Admin: 11/06/16 09:31 Dose: 14 mg Ondansetron HCl (Zofran Injection) 4 mg IVPB Q6H PRN PRN Reason: NAUSEA AND/OR VOMITING Oxycodone HCl (Roxicodone -) 10 mg PO Q6H PRN PRN Reason: PAIN Last Admin: 11/06/16 13:49 Dose: 10 mg Polyethylene Glycol (Miralax (For Daily Use) -) 17 gm PO DAILY COUNTS INCLUDE 234 BEDS AT THE [facility] Last Admin: 11/06/16 09:31 Dose: Not Given Sertraline HCl (Zoloft -) 100 mg PO DAILY COUNTS INCLUDE 234 BEDS AT THE [facility] Last Admin: 11/06/16 09:30 Dose: 100 mg - Objective Vital Signs: Vital Signs Temperature 98.6 F 11/06/16 14:53 Pulse Rate 99 H 11/06/16 14:53 Respiratory Rate 20 11/06/16 14:53 Blood Pressure 132/59 11/06/16 14:53 O2 Sat by Pulse Oximetry (%) 98 11/06/16 09:43 Constitutional: Yes: No Distress, Calm, Obese Cardiovascular: Yes: Regular Rate and Rhythm. No: Gallop, Murmur, Rub Respiratory: Yes: Regular, CTA Bilaterally. No: Rales, Rhonchi, Wheezes Gastrointestinal: Yes: Normal Bowel Sounds, Soft. 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 -PICC line place in am Code(s): T14.8 - OTHER INJURY OF UNSPECIFIED BODY REGION L08.9 - LOCAL INFECTION OF THE SKIN AND SUBCUTANEOUS TISSUE, UNSP (2) Hypertension Assessment/Plan: -continue amlodipine Code(s): I10 - ESSENTIAL (PRIMARY) HYPERTENSION (3) Tobacco abuse Assessment/Plan: -continue nicotine patch Code(s): Z72.0 - TOBACCO USE (4) Anxiety Assessment/Plan: -continue home anxiety regimen Code(s): F41.9 - ANXIETY DISORDER, UNSPECIFIED (5) Hypokalemia -still low -replace today -recheck this evening (6) Insomnia -will stop IV morphine -needs oxycodone for pain control -remeron trial this evening Dispo -plan for discharge tomorrow
--- NOTE | 2016-11-06 17:39 | PN ---
Progress Note (short form) - Note Progress Note: Pt seen and examined. She is s/p Left knee wash out. She states her left knee has pain, more with weight bearing and activity, but it is improving. Receiving IV antibiotics AVSS PE Left knee looks good, no erythema, min swelling, not hot + mildly tender to palpation Overall stable, doing better. Antibiotic regimen as per ID. She is to receive a PICC line, then home abx
[2016-11-06] MEDS: SODIUM CHLORIDE 1,000 ML IV SCH (18:25)
[2016-11-06 21:49] LABS: ANION GAP 15 (8-16); CALCIUM 9.3 mg/dL (8.5-10.1); CO2 21 mmol/L (21-32); CREATININE 0.6 mg/dL (0.55-1.02); GLUCOSE,RANDOM 138 mg/dL (74-106)
[2016-11-06] MEDS ORDERED: MIRTAZAPINE 15 MG TABLET (FP) PO SCH (22:00)
[2016-11-07] MEDS ORDERED: PT OWN MED DRAWER 7, Y5N ONE ×4 (02:09→11:33)
[2016-11-07] MEDS: NAFCILLIN - 2 GM in DEXTROSE 5%-WATER - 100 ML IVPB SCH ×4 (02:11→14:16)
[2016-11-07] MEDS: oxyCODONE HCL 5 MG TABLET PO PRN ×2 (02:12→08:09)
[2016-11-07 08:15] LABS: BASOPHIL 0.4 % (0-2.0); EOSINOPHIL 0.7 % (0-4.5); MCH 33.9 pg (25.7-33.7); MCHC 34.1 g/dl (32.0-36.0); MEAN CELL VOLUME 99.4 fl (80-96); MEAN PLT VOLUME 8.4 fl (7.5-11.1); NEUTROPHILS 68.1 % (42.8-82.8); PLATELET COUNT 334 K/MM3 (134-434); RDW 14.8 % (11.6-15.6); WHITE BLOOD COUNT 9.1 K/mm3 (4.0-10.0)
[2016-11-07 08:55] LABS: ANION GAP 11 (8-16); CALCIUM 8.8 mg/dL (8.5-10.1); CO2 29 mmol/L (21-32); CREATININE 0.5 mg/dL (0.55-1.02); GLUCOSE,RANDOM 122 mg/dL (74-106); MAGNESIUM 2.3 mg/dL (1.8-2.4); PHOSPHOROUS 3.4 mg/dL (2.5-4.9)
[2016-11-07] MEDS ORDERED: PICC LINE 8 ML FLUSH PROTOCOL IVPUSH PRN (09:18)
[2016-11-07] MEDS: NICOTINE 14 MG/24 HOURS TOPICAL PATCH TD SCH (09:33)
[2016-11-07] MEDS: ENOXAPARIN NA (PORCINE) 40 MG/0.4 ML DISP.SYRIN SQ SCH (09:34)
[2016-11-07] MEDS: MAGNESIUM OXIDE 400 MG TABLET (FP) PO SCH (09:34)
[2016-11-07] MEDS: SERTRALINE HCL 50 MG TABLET (FP) PO SCH (09:34)
[2016-11-07] MEDS: MULTIVITAMINS (DAILY MVI) TABLET (FP) PO SCH (09:34)
[2016-11-07] MEDS: LACTOBACILLUS ACIDOPHILUS 1 EACH TAB (FP) PO SCH (09:34)
[2016-11-07] MEDS: ALPRAZolam 0.25 MG TABLET PO PRN ×2 (09:35→14:28)
[2016-11-07] MEDS: amLODIPine BESYLATE 5 MG TABLET (FP) PO SCH (09:35)
[2016-11-07] MEDS: GABAPENTIN 300 MG CAPSULE (FP) PO SCH ×2 (09:35→14:17)
[2016-11-07] MEDS: POLYETHYLENE GLYCOL 3350 119 GM BTL PO SCH (09:36)
[2016-11-07] MEDS: DOCUSATE SODIUM 100 MG CAPSULE (FP) PO SCH (09:36)
[2016-11-07] MEDS: ACETAMINOPHEN 325 MG TABLET (FP) PO PRN (11:50)
--- NOTE | 2016-11-07 12:11 | PN ---
Progress Note (short form) - Note Progress Note: Ortho Pt seen and examined s/p left knee wash out- picc line inserted today Selected Entries 11/07/16 10:00 Temperature 99.4 F Pulse Rate 94 H Respiratory 18 Rate Blood Pressure 135/86 Laboratory Tests 11/07/16 06:40 WBC 9.1 Hgb 10.0 L Hct 29.2 L Plt Count 334 D incision with slight clear drainage, calf soft, nt rom 0-30, nvi a/p abx as per ID picc line PT dvt ppx pain control d/c to snf today
--- NOTE | 2016-11-07 12:25 | DS ---
Physical Examination Vital Signs: Vital Signs Temperature 99.4 F 11/07/16 10:00 Pulse Rate 94 H 11/07/16 10:00 Respiratory Rate 18 11/07/16 10:00 Blood Pressure 135/86 11/07/16 10:00 O2 Sat by Pulse Oximetry (%) 98 11/07/16 10:00 Labs: CBC, BMP 11/07/16 06:40 11/07/16 06:40 Discharge Summary Reason For Visit: WOUND INFECTION Current Active Problems Anxiety (Acute) Wound infection (Acute) Condition: Stable - Instructions Diet, Activity, Other Instructions: regular diet. Up with assistance, further activity per PT at SNF Referrals: Edilberto Luke MD [Staff Physician] - Lane Bryan MD [Staff Physician] - Lane Sorenson MD [Primary Care Provider] - Disposition: [facility] - Home Medications Comprehensive Discharge Medication List: Ambulatory Orders Alprazolam [Xanax] 1 mg PO QID PRN 08/23/14 Amlodipine Besylate [Norvasc -] 5 mg PO DAILY 08/23/14 Sertraline HCl [Zoloft -] 100 mg PO DAILY 08/23/14 Gabapentin [Neurontin] 300 mg PO QID #120 capsule 08/16/16 Albuterol Sulfate [Proair Respiclick] 90 mcg IH ASDIR PRN 09/20/16 Multivitamins [Multivit ([facility] Formulary)] 1 tab PO DAILY 09/20/16 Acetaminophen [Tylenol .Regular Strength -] 325 mg PO Q6H PRN #0 tablet Docusate Sodium [Colace -] 100 mg PO BID cap 11/07/16 Enoxaparin [Lovenox -] 40 mg SQ DAILY syringe 11/07/16 Lactobacillus Acidophilus [Bacid -] 1 tab PO DAILY tab 11/07/16 Mag Hydrox/Al Hydrox/Simeth [Mylanta Oral Suspension -] 30 ml PO Q4H PRN #0 bot 11/07/16 Magnesium Oxide [Mag-Ox -] 400 mg PO BID #1 tablet 11/07/16 Nicotine Patch [Nicoderm Patch -] 14 mg TD DAILY patch 11/07/16 Oxycodone HCl 10 mg PO Q4HWA PRN #1 tablet MDD 60mg 11/07/16 Picc Line Flush [Picc Line Flush -] 8 ml IVPUSH PRN PRN #0 ml 11/07/16 Polyethylene Glycol 3350 [Miralax 119 gm Btl -] 17 gm PO DAILY #1 bottle Zolpidem Tartrate [Ambien Cr] 6.25 mg PO HS PRN #1 tab.mphase MDD 6.25mg
[2016-11-07] MEDS ORDERED: oxyCODONE HCL 5 MG TABLET PO ONE (12:45)
[2016-11-07 15:33] VITALS: BP 129/72; PULSE 96; TEMP 99.2
--- NOTE | 2016-11-07 16:01 | PN ---
Progress Note, Physician History of Present Illness: No c/o knee pain at rest Ambulates with walker No fever/ chills Tolerating antibiotics Repeat BC (-) Echo (-) - Current Medication List Current Medications: Active Medications Acetaminophen (Tylenol -) 325 mg PO Q6H PRN PRN Reason: FEVER OR PAIN Last Admin: 11/07/16 11:50 Dose: 325 mg Al Hydroxide/Mg Hydroxide (Mylanta Oral Suspension -) 30 ml PO Q4H PRN PRN Reason: DYSPEPSIA Albuterol Sulfate (Ventolin Hfa Inhaler -) 2 puff IH Q4H PRN PRN Reason: WHEEZING Alprazolam (Xanax -) 1 mg PO QID PRN PRN Reason: ANXIETY Last Admin: 11/07/16 14:28 Dose: 1 mg Amlodipine Besylate (Norvasc -) 5 mg PO DAILY [facility] Last Admin: 11/07/16 09:35 Dose: 5 mg Docusate Sodium (Colace -) 100 mg PO BID [facility] Last Admin: 11/07/16 09:36 Dose: Not Given Enoxaparin Sodium (Lovenox -) 40 mg SQ DAILY [facility] Last Admin: 11/07/16 09:34 Dose: 40 mg Gabapentin (Neurontin -) 300 mg PO QID [facility] Last Admin: 11/07/16 14:17 Dose: 300 mg IV Flush (Picc Line Flush) 8 ml IVPUSH PRN PRN PRN Reason: Protocol Sodium Chloride (Normal Saline -) 1,000 mls @ 75 mls/hr IV ASDIR [facility] Last Admin: 11/06/16 18:25 Dose: 75 mls/hr Nafcillin Sodium 2 gm/ (Dextrose) 100 mls @ 100 mls/hr IVPB Q4H-IV AFUA PRN Reason: Protocol Last Admin: 11/07/16 14:16 Dose: 100 mls/hr Lactobacillus Acidophilus (Bacid -) 1 tab PO DAILY [facility] Last Admin: 11/07/16 09:34 Dose: 1 tab Magnesium Oxide (Mag-Ox -) 400 mg PO BID [facility] Last Admin: 11/07/16 09:34 Dose: 400 mg Mirtazapine (Remeron -) 30 mg PO HS [facility] Last Admin: 11/06/16 21:24 Dose: 30 mg Multivitamins/Minerals/Vitamin C (Tab-A-Vit -) 1 tab PO DAILY [facility] Last Admin: 11/07/16 09:34 Dose: 1 tab Nicotine (Nicoderm Patch -) 14 mg TD DAILY [facility] Last Admin: 11/07/16 09:33 Dose: 14 mg Ondansetron HCl (Zofran Injection) 4 mg IVPB Q6H PRN PRN Reason: NAUSEA AND/OR VOMITING Last Admin: 11/06/16 20:36 Dose: 4 mg Oxycodone HCl (Roxicodone -) 10 mg PO Q6H PRN PRN Reason: PAIN Last Admin: 11/07/16 08:09 Dose: 10 mg Polyethylene Glycol (Miralax (For Daily Use) -) 17 gm PO DAILY [facility] Last Admin: 11/07/16 09:36 Dose: Not Given Sertraline HCl (Zoloft -) 100 mg PO DAILY [facility] Last Admin: 11/07/16 09:34 Dose: 100 mg - Objective Vital Signs: Vital Signs Temperature 99.2 F 11/07/16 14:31 Pulse Rate 96 H 11/07/16 14:31 Respiratory Rate 20 11/07/16 14:31 Blood Pressure 129/72 11/07/16 14:31 O2 Sat by Pulse Oximetry (%) 98 11/07/16 10:00 Constitutional: Yes: No Distress Eyes: Yes: Conjunctiva Clear Cardiovascular: Yes: Regular Rate and Rhythm, S1, S2 Respiratory: Yes: CTA Bilaterally Gastrointestinal: Yes: Normal Bowel Sounds, Soft Extremities: Yes: Other (dressing in place L knee) Labs: CBC, BMP 11/07/16 06:40 11/07/16 06:40 INR, PTT INR 0.98 (0.82-1.09) 11/01/16 18:30 Assessment/Plan S/P I&D L knee MSSA bacteremia secondary to wound source S/P partial L knee replacement Echo no vegetations Repeat BC prelim no growth Will need assisted IV antibiotic therapy as outpatient ( Cefazolin 2gm IVPB q8h x 6 weeks)
== END 2016-11-07 16:11 | DRG 863 ==
LOC: JER 17:16 → JERBED 22:37 → UNDOADMIN 22:43 → J5S 11-02 00:29 → JERBED 11-02 00:29
PROVIDERS: ADMIT Internal Medicine; ATTEND Internal Medicine
PROC: 0S9D0ZX Drainage of Left Knee Joint, Open Approach, Diagnostic (ICD-10-PCS; principal; 2016-11-02 15:30)
PROC: 02HV33Z Insertion of Infusion Device into Superior Vena Cava, Percutaneous Approach (ICD-10-PCS; 2016-11-07)
DX: T81.4XXA Infection following a procedure, initial encounter (principal); B95.62 Methicillin resistant Staphylococcus aureus infection as the cause of diseases classified elsewhere; Y83.8 Other surgical procedures as the cause of abnormal reaction of the patient, or of later complication, without mention of misadventure at the time of the procedure; Y92.89 Other specified places as the place of occurrence of the external cause; I10 Essential (primary) hypertension; E87.6 Hypokalemia; G47.09 Other insomnia; F41.8 Other specified anxiety disorders; F17.210 Nicotine dependence, cigarettes, uncomplicated; Z96.652 Presence of left artificial knee joint
CPT/HCPCS: 36415; 36569; 71010-TC; 73562-TC-LT; 77001-TC; 80048; 80053; 81003; 81015; 82550; 82803; 83605; 83735; 84100; 84484; 85025; 85027; 85610; 85651; 85730; 86140; 86850; 86900; 86901; 87040; 87070; 87086; 87186; 87205; 87324; 87449; 93005; 93010; 93306-TC; 94010; 94760; 97116-GP; 97161-GP; 99283-25; C1751

== ENCOUNTER 2019-02-23 05:28 | Day surgery (SDC) | payer BC ==
[2019-02-19 17:06] VITALS: BMI 32.9
[2019-02-23] MEDS ORDERED: BUPIVACAINE HCL/PF 0.25% (2.5MG/ML) 10 ML VIAL ONE (07:18)
[2019-02-23] MEDS ORDERED: LIDOCAINE HCL 1%, 10 MG/ML (20ML VIAL) ONE (07:18)
[2019-02-23] MEDS ORDERED: methylPREDNISolone ACET (DEPO) 80 MG/1 ML VIAL ONE (07:18)
[2019-02-23] MEDS ORDERED: LIDOCAINE HCL/PF 2% SDV 5ML VIAL ONE (07:58)
[2019-02-23] MEDS ORDERED: PROPOFOL 20 ML ONE ×2 (07:58)
[2019-02-23] MEDS ORDERED: BUPIVACAINE HCL/PF 0.25% (2.5MG/ML) 10 ML VIAL IJ ONE (08:08)
[2019-02-23] MEDS ORDERED: LIDOCAINE HCL 1%, 10 MG/ML (20ML VIAL) NR ONE (08:08)
[2019-02-23] MEDS ORDERED: methylPREDNISolone ACET (DEPO) 80 MG/1 ML VIAL IJ ONE (08:08)
[2019-02-23 08:36] VITALS: TEMP 97.6
[2019-02-23 09:25] VITALS: BP 154/75; PULSE 90
--- NOTE | 2019-02-23 10:36 | OP ---
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 POSTOPERATIVE DIAGNOSIS: Right T12-L1 paracentral disk herniation with right T12 radiculopathy. ATTENDING SURGEON: Reynold Gutierrez MD PROCEDURES: 1. Right T12-L1 epidural steroid injection. 2. Intraoperative fluoroscopy. ANESTHESIA: Local with IV sedation. ANESTHESIOLOGIST: Candelaria Davies MD INDICATIONS: Patient is a 48-year-old female with history of multilevel lumbar laminectomy who complains of right-sided lower thoracic radiculopathy. Because of her intractable symptoms and failure of conservative treatment, she is here for her 2nd epidural steroid injection. The 1st injection did give her significant relief for several weeks. The risks of the procedure include, but are not limited to, bleeding, infection, spinal headache, and neurological injury. The patient understands the indications for the procedure, procedure in detail, risks and benefits, and alternatives for treatment of her thoracolumbar condition and wishes to proceed. No guarantees are given for a favorable outcome. PROCEDURE IN DETAIL: After patient was taken to the operating room, she was placed in a prone position with a pillow under her hips. Thoracolumbar junction was cleaned with alcohol and prepped with Betadine. Skin wheal was raised with 5 mL of 1% Xylocaine. A 22-gauge spinal needle was inserted under AP and lateral fluoroscopic guidance from a right-sided approach T12-L1. Frap-[id number] technique was utilized, and there was no CSF or blood backflow. This was confirmed with AP and lateral fluoroscopic imaging, 80 mg of Depo-Medrol and 1 mL of 0.25% Marcaine were injected. The needle was withdrawn. Sterile bandage was applied. The patient tolerated the procedure well, was turned back into supine position. Bilateral lower extremities moving well. She was not complaining of headache. She was able to ambulate independently subsequently. REYNOLD GUTIERREZ M.D. [id number]
== END 2019-02-23 09:20 | disposition home or self-care (01) ==
LOC: JASU-SURG 05:28
PROVIDERS: ATTEND Neurological Surgery
PROC: 3E0R33Z Introduction of Anti-inflammatory into Spinal Canal, Percutaneous Approach (ICD-10-PCS; 2019-02-23)
PROC: B01BYZZ Fluoroscopy of Spinal Cord using Other Contrast (ICD-10-PCS; 2019-02-23)
PROC: 3E0R3BZ Introduction of Anesthetic Agent into Spinal Canal, Percutaneous Approach (ICD-10-PCS; principal; 2019-02-23 08:00)
DX: M51.15 Intervertebral disc disorders with radiculopathy, thoracolumbar region (principal)
CPT/HCPCS: 76000-TC-FY

== ENCOUNTER 2019-04-21 11:17 | Observation (INO) | payer BC ==
--- NOTE | 2019-04-21 11:46 | PDOC ---
"History of Present Illness - General Chief Complaint: CVA/TIA Stated Complaint: dizziness,slurred speech,difficulty walking x 2 da Time Seen by Provider: 04/21/19 11:19 - History of Present Illness Initial Comments: HPI: 48 y/o female presenting to ER from [facility] visit with Dr. Doreen Simms for evaluation of difficulty walking, worse in am, slurred speech, diplopia and word finding difficulty (according to clinical note). On arrival, the pt is complaining of three days of worsening dizziness in the morning. States she is asymptomatic when laying in bed, but has extreme difficulty when standing and walking to the bathroom. Feels like her equilibrium is off; has to use furniture or another person for assistance. Has vomiting when brushing teeth in the morning. Symptoms improve over the course of the day. No change when closing eyes or laterally rotating neck. Denies recent illness. Of note, the pt reports falling onto her right side one week ago at the [facility]. Did not strike her head or neck. Did not pass out. Was able to walk afterward unassisted. Pt does not take any AC. [employer] Report: This report was requested by: Timothy Zhong | Reference #: [id number] Others' Prescriptions Patient Name: Geneva Iglesias Date: 1970 Address: [address] [place] [address] Sex: Female Rx Written Rx Dispensed Drug Quantity Days Supply Prescriber Name 03/20/2019 03/23/2019 oxycodone-acetaminophen 10-325 mg tab [address]) 03/20/2019 03/23/2019 alprazolam 2 mg tablet [address]) 02/16/2019 02/20/2019 oxycodone-acetaminophen 10-325 mg tab [address]) 02/16/2019 02/19/2019 alprazolam 2 mg tablet [address]) 01/21/2019 01/22/2019 oxycodone-acetaminophen 10-325 mg tab [address]) 01/21/2019 01/22/2019 alprazolam 2 mg tablet [address]) 12/23/2018 12/24/2018 oxycodone-acetaminophen 10-325 mg tab [address]) 12/23/2018 12/24/2018 alprazolam 2 mg tablet 120 [address]) 12/23/2018 12/24/2018 phentermine 37.5 mg capsule 30 [address] [place]) 11/17/2018 11/18/2018 oxycodone-acetaminophen 10-325 mg tab 120 [address] [place]) 11/17/2018 11/18/2018 phentermine 37.5 mg capsule 30 [address] [place]) 11/17/2018 11/18/2018 alprazolam 2 mg tablet 120 [address] [place]) 10/17/2018 10/18/2018 oxycodone-acetaminophen 10-325 mg tab 120 [address] [place]) 10/17/2018 10/18/2018 alprazolam 2 mg tablet 120 [address] [place]) 10/17/2018 10/18/2018 phentermine 37.5 mg capsule 30 [address] [place]) 09/18/2018 09/26/2018 phentermine 37.5 mg capsule 30 [address] [place]) 09/18/2018 09/18/2018 oxycodone-acetaminophen 10-325 mg tab 120 [address] [place]) 09/18/2018 09/18/2018 alprazolam 2 mg tablet [address] [place]) 08/22/2018 08/23/2018 phentermine 37.5 mg capsule 30 [address] [place]) 08/15/2018 08/16/2018 oxycodone-acetaminophen 10-325 mg tab [address] [place]) 08/15/2018 08/16/2018 alprazolam 2 mg tablet [address] [place]) 07/17/2018 07/20/2018 oxycodone-acetaminophen 10-325 mg tab [address] [place]) 07/17/2018 07/20/2018 alprazolam 2 mg tablet [address] [place]) 06/19/2018 06/21/2018 alprazolam 2 mg tablet [address] [place]) 06/19/2018 06/20/2018 oxycodone-acetaminophen 10-325 mg tab [address] [place]) 05/19/2018 05/20/2018 alprazolam 2 mg tablet [address]) 05/19/2018 05/19/2018 oxycodone-acetaminophen 10-325 mg tab [address]) Social Hx: - EtOH: Daily, reports a couple of cocktails per day in the past two days - Tobacco: Daily smoker, now at pack per day - Street Drugs: Uses Marijuana electronic vaping pen, denies new batch Medical Hx: - Depression managed with Xanax and Venlafaxine one month ago - HTN - HLD - Chronic Back Pain, managed with Oxycodone and Gabapentin Review of Systems: In addition to that documented in the HPI above, the additional ROS was obtained : Constitutional- Denies fevers or chills Head- Denies vision changes - wears glasses - no new prescriptions ENMT- Denies sore throat CV- Denies chest pain Resp- Denies SOB GI- Endorses vomiting. Denies diarrhea - Denies painful urination, hematuria Skin- Denies new rashes Neuro- Denies new numbness or tingling Endocrine- Denies polyuria Heme- Denies bleeding or bruising Physical Examination: Vital signs and nursing notes reviewed. Constitutional- Well-developed, well-nourished adult female in no acute distress or obvious discomfort. Observed walking into the department with minimal assistance from father. Examined semi-fowlers on hospital bed. Answered all questions appropriately and completely. Head- Normocephalic. No obvious external signs of trauma. No Brandt's Sign or Raccoon Eyes. Eyes- Pupils 4mm and PERRL bilaterally. EOMI. Right beating nystagmus. No vertical nystagmus. Sclerae white. Conjunctiva moist and not injected. Ears- External auditory canals and tympanic membranes pearly chin. Possible trace effusion bilaterally. Nose- No nasal discharge. Throat- Oral cavity and pharynx normal. No inflammation, swelling, exudate, or lesions. Neck- Supple, trachea is midline. Cardiovascular / Chest- Regular rate and regular rhythm. No murmur, rubs, clicks , or gallops. Peripheral pulses- radial pulses full. Discomfort when palpating lower right anterolateral aspect of chest wall - no grimace - no overlying ecchymosis. Respiratory- Breathing unlabored. Equal chest rise and fall. Clear to auscultation bilaterally. No stridor, no wheezing, no rhonchi. Gastrointestinal- abdomen is soft, non-tender, non-distended. Neuro- Alert and oriented x4. Moving all four extremities spontaneously. No facial asymmetry. No slurred speech. No upper or lower extremity drift. Sensation to all four extremities intact. No nuchal rigidity. Intact rapid alternating movements and heel to zaragoza bilaterally. Skin- Warm, dry, and intact. Psych- Affect- appropriate. Mood- normal. Speech was non-labored, non- pressured. NIH Stroke Scale/Score (NIHSS) RESULT SUMMARY: 0 points NIH Stroke Scale INPUTS: 1A: Level of consciousness > 0 = Alert; keenly responsive 1B: Ask month and age > 0 = Both questions right 1C: 'Blink eyes' & 'squeeze hands' > 0 = Performs both tasks 2: Horizontal extraocular movements > 0 = Normal 3: Visual hassan > 0 = No visual loss 4: Facial palsy > 0 = Normal symmetry 5A: Left arm motor drift > 0 = No drift for 10 seconds 5B: Right arm motor drift > 0 = No drift for 10 seconds 6A: Left leg motor drift > 0 = No drift for 5 seconds 6B: Right leg motor drift > 0 = No drift for 5 seconds 7: Limb Ataxia > 0 = No ataxia 8: Sensation > 0 = Normal; no sensory loss 9: Language/aphasia > 0 = Normal; no aphasia 10: Dysarthria > 0 = Normal 11: Extinction/inattention > 0 = No abnormality MDM: 48 y/o female presenting with three days of worsening dizziness and disequilibrium in the morning. Noted fall one week ago but did not strike her head or neck. Afebrile. Vitals unremarkable for hypotension or tachycardia. Physical exam as described above. Possible posterior CVA, but no suggestive physical exam finding. Differential also includes ICH, TIA, polypharmacy, BPPV, middle ear effusion. CVA/TIA order set initiated. tPA not indicated given NIH of zero. 21 Apr 2019 12:15 PM Telephone conversation with radiologist Dr. Blunt. Possible chronic lacunar infarct in left cerebellum, but no obvious signs of acute ischemia on HCT. Reviewed labs. Noted elevated AST>ALT. Suspect secondary to EtOH abuse. Will defer further workup to medicine service. Pt to be placed on observational status with telemetry monitoring for further neurologic evaluation. ED Attending admitted pt to [facility] service. Timothy Zhong M.D., PGY2 Emergency Medicine Resident Past History - Past Medical History Allergies/Adverse Reactions: Allergies Allergy/AdvReac Type Severity Reaction Status Date / Time No Known Drug Allergies Allergy Verified 04/21/19 11:20 Home Medications: Ambulatory Orders Alprazolam [Xanax] 1 mg PO QID PRN 08/23/14 Amlodipine Besylate [Norvasc -] 5 mg PO DAILY 08/23/14 Salmeterol/Fluticasone [Advair 100Mcg/50Mcg -] 1 inh PO BID PRN 02/19/19 Furosemide 20 mg PO DAILY 04/21/19 Gabapentin 300 mg PO TID 04/21/19 Liraglutide [Saxenda] 0.6 mg SQ DAILY 04/21/19 Oxycodone HCl/Acetaminophen [Oxycodone-Acetaminophen 10-325] 1 tab PO TID Pantoprazole Sodium 40 mg PO DAILY 04/21/19 Venlafaxine HCl ER [Effexor Xr -] 37.5 mg PO DAILY 04/21/19 traZODone HCL [Trazodone HCl] 2 tab PO HS 04/21/19 Anemia: Yes ( A TEENAGER HAD IRON SHOTS) Asthma: Yes (HAS HAD BRONCHITIS/ASTHMA 1-2 TIMES A YEAR) Cancer: No Cardiac Disorders: No CVA: No COPD: No CHF: No Dementia: No Diabetes: No GI Disorders: Yes (STOMACH ULCERS IN THE PAST) Disorders: No HTN: Yes Hypercholesterolemia: No Liver Disease: No Psychiatric Problems: Yes Seizures: No Thyroid Disease: No Other medical history: VERTIGO - Surgical History Abdominal Surgery: No Appendectomy: No Cardiac Surgery: No Cholecystectomy: No Lung Surgery: No Neurologic Surgery: No Orthopedic Surgery: Yes (LUMBAR Laminectomy 11/16 WITH HARDWARE, Left Knee replacement, and I&D) - Psycho Social/Smoking Cessation Hx Smoking Status: Yes Smoking History: Current every day smoker Have you smoked in the past 12 months: Yes Number of Cigarettes Smoked Daily: 10 Information on smoking cessation initiated: Yes 'Breaking Loose' booklet given: 11/01/16 Hx Alcohol Use: Yes (2/day) Drug/Substance Use Hx: No Substance Use Type: Marijuana Hx Substance Use Treatment: No *Physical Exam - Vital Signs Last Vital Signs Temp Pulse Resp BP Pulse Ox 98.7 F 90 19 140/88 97 04/21/19 11:19 04/21/19 11:19 04/21/19 11:19 04/21/19 11:19 04/21/19 11:19 ED Treatment Course - LABORATORY CBC & Chemistry Diagram: 04/21/19 11:50 04/21/19 11:45 - RADIOLOGY Radiology Studies Ordered: Category Date Time Status HEAD CT (STROKE) [CT] Stat CT Scan 04/21/19 11:37 Ordered Discharge - Discharge Information Problems reviewed: Yes Clinical Impression/Diagnosis: Dizziness, Disequilibrium Condition: Stable - Admission Yes - Follow up/Referral - Patient Discharge Instructions - Post Discharge Activity"
[2019-04-21 12:13] LABS: BASO % 0.6 % (0-2.0); EOS % 0.8 % (0-4.5); HEMOGLOBIN 14.4 GM/dl (10.7-15.3); LYMPH % 26.1 % (8-40); MCH 34.6 pg (25.7-33.7); MCHC 33.5 g/dl (32.0-36.0); MEAN CELL VOLUME 103.1 fl (80-96); MEAN PLT VOLUME 8.3 fl (7.5-11.1); MONO % 6.3 % (3.8-10.2); NEUT % 66.2 % (42.8-82.8); PLATELET COUNT 221 K/MM3 (134-434); RBC 4.17 M/mm3 (3.60-5.2); RDW 14.4 % (11.6-15.6); WHITE BLOOD COUNT 6.1 K/mm3 (4.0-10.8)
[2019-04-21 12:20] LABS: ALBUMIN 3.9 g/dl (3.4-5.0); BILIRUBIN,TOTAL 0.8 mg/dl (0.2-1); CALCIUM 8.9 mg/dl (8.5-10); CREATININE 0.6 mg/dl (0.55-1.3); POTASSIUM 3.8 mmol/L (3.5-5.1); TOT PROT 7.3 g/dl (6.4-8.2)
[2019-04-21 12:20] LABS: ACTIVATED PTT 29.2 SECONDS (25.2-36.5)
[2019-04-21 12:25] LABS: INR 1.09 (0.82-1.09); PROTHROMBIN TIME (PATIENT) 12.2 SEC (10.2-13.0)
[2019-04-21 12:26] LABS: CHOLESTEROL 274 mg/dl (50-200); HDL CHOLESTEROL 76 mg/dl (40-60); LDL CHOLESTEROL (ONLY DFH) 151 mg/dl (5-100); TRIGLYCERIDES 235 mg/dl (0-150)
--- NOTE | 2019-04-21 12:55 | PDOC ---
Attending Attestation - Resident Resident Name: ZhongTimothy - ED Attending Attestation I have performed the following: I have examined & evaluated the patient, The case was reviewed & discussed with the resident, I agree w/resident's findings & plan - HPI HPI: 04/21/19 12:49 48-year-old female with history of hypertension, high cholesterol, chronic back pain status post surgeries, polysubstance use including alcohol and prescription opiates/benzodiazepines, chronic smoker presents with imbalance and gait instability for 2 days. Patient's very first episode was about 10 days ago when she awoke from sleep and felt off balance, lasted a few moments then resolved and she returned to baseline. About 1 week ago, [place] the [place] and randomly fell to the ground, she was able to get up with assistance and also returned to baseline with minor rib injuries. She did not hit her head at that time. 2 days ago, patient awoke again with an episode of dizziness/imbalance which resolved. However she presents today with persistent dizziness/imbalance since yesterday morning around 9 AM, associated with mild generalized headache but no vision change or focal weakness, questionable slurred speech, no cardiopulmonary complaints. Patient went to urgent care today, was referred to the ED for evaluation. + sleep apnea, no h/o afib. - Physicial Exam PE: 04/21/19 12:53 Vital signs stable. GENERAL: The patient is awake, alert, and fully oriented, in no acute distress. Conversant. Heart is regular, lungs are clear Abdomen benign Pupils are equal round reactive to light, extraocular movements are intact, visual hassan are intact. 5 out of 5 motor strength x4 extremities, finger-nose -finger and [id number] are intact. Patient has wide based shuffling gait with unsteadiness no audible carotid bruit - Critical Care Time Total Critical Care Time: 30 Critical Care Statement: The care of this patient involved high complexity decision making to prevent further life threatening deterioration of the patient 's condition and/or to evaluate & treat vital organ system(s) failure or risk of failure. - Medical Decision Making 04/21/19 12:55 48-year-old female with history of hypertension, high cholesterol, extensive smoking and alcohol history presents with unsteadiness and gait instability since yesterday, persistent symptoms concerning more for central etiology than peripheral etiology. Has several risk factors for CVA, vital signs are stable here. Stroke protocol initiated CT shows chronic frontal encephalomalacia and a cerebellar subacute/chronic infarct not previously reported on prior brain imaging from 2015. Labs are within normal limits, chemistry is pending, EKG is sinus. Would admit for further telemetry monitoring and CVA work-up -- NIHSS zero but + gait instability. Pt is out of window for thrombolysis and does not have LVO clinical presentation that would indicate CTA or thrombectomy. 04/21/19 13:44 labs wnl, trop negative. CT as noted with cerebellar lesion. will admit to tele for stroke evaluation/management. Accepted for inpt tele by Dr. John, signout given to HYDROGEN TREATER Oleksandr. pt received asa, lipitor, meclizine. Discharge - Discharge Information Problems reviewed: Yes Clinical Impression/Diagnosis: Dizziness, Disequilibrium Condition: Stable - Admission Yes - Follow up/Referral Referrals: Lane Sorenson MD [Primary Care Provider] - - Patient Discharge Instructions - Post Discharge Activity Heart Score/ECG Review #1 ECG reviewed & interpreted by me at: 11:49 General ECG Interpretation: Sinus Rhythm, Normal Rate (86), Normal Intervals ( qtc 447), No acute ischemic changes NIH Stroke Scale - Last Known Well Date/Time & Onset Date Last Known Well: 04/20/19 Time Last Known Well: 09:00 - Initial Evaluation Level of consciousness: Alert Ask patient the month and their age: Answers both correctly Ask patient to open & close eyes; make fist and let go: Obeys both correctly Best gaze (horizontal eye movement): Normal Visual field testing: No visual field loss Facial paresis (Show teeth/raise eyebrows/close eyes tight): Normal symmetrical movement Motor Function: Left Arm: Normal Motor Function: Right Arm: Normal (extends arm 90 (or 45) degrees for 10 seconds without drift Motor Function: Left Leg: Normal (extends leg 30 degrees for 5 seconds without drift) Motor Function: Right Leg: Normal (extends leg 30 degrees for 5 seconds without drift) Limb Ataxia: No ataxia Sensory(Use pinprick test arms,legs,trunk,face/side to side): Normal Best language (Describe picture, name items, read sentences): No Aphasia Dysarthria (read several words): Normal articulation Extinction and Inattention: No abnormality - Total Score NIH Stroke Scale Score: 0
[2019-04-21] MEDS ORDERED: ASPIRIN 325 MG TABLET PO ONE (13:00)
[2019-04-21] MEDS ORDERED: ATORVASTATIN CA 80 MG TABLET (FP) PO ONE (13:00)
[2019-04-21] MEDS ORDERED: MECLIZINE HCL 25 MG TABLET (FP) PO ONE (13:00)
[2019-04-21] MEDS ORDERED: ATORVASTATIN CA 80 MG TABLET (FP) ONE (13:06)
[2019-04-21] MEDS ORDERED: MECLIZINE HCL 25 MG TABLET (FP) ONE (13:06)
[2019-04-21] MEDS ORDERED: ASPIRIN 325 MG TABLET ONE (13:06)
--- NOTE | 2019-04-21 13:47 | HP ---
Documentation entered by Silvana Simms SCRIBE, acting as scribe for Mar Leggett NP. CHIEF COMPLAINT: Unsteady gait PCP: Dr. Lane Sorenson HISTORY OF PRESENT ILLNESS: Patient is a 48 year old female with a PMH significant for HTN, HLD, asthma, polysubstance abuse, chronic back pain and depression. Presented to the ED for evaluation of imbalance and gait instability. Patient's very first episode was about 10 days ago when she awoke from sleep and felt off balance, lasted a few moments then resolved and she returned to baseline. About 1 week ago, she was walking in the shopping [place] and randomly fell to the ground, she was able to get up with assistance and also returned to baseline with minor rib injuries. She did not hit her head at that time. 2 days ago, patient awoke again with an episode of dizziness/imbalance which resolved. However she presents today with persistent dizziness/imbalance since yesterday morning around 9 AM, associated with mild generalized headache but no vision change or focal weakness, questionable slurred speech, no cardiopulmonary complaints. Patient went to urgent care today, was referred to the ED for evaluation. Recent Travel: No PAST MEDICAL HISTORY: Hypertension Hyperlipidemia Asthma Polysubstance abuse Chronic back pain Depression PAST SURGICAL HISTORY: Lumbar laminectomy 2004 Left knee replacement 2017 Appendectomy Ear surgery Social History: works as a after school coordinator Smoking: current every day smoker Alcohol: daily Drugs: marijuana using vaping device Allergies No Known Drug Allergies Allergy (Verified 04/21/19 11:20) HOME MEDICATIONS: Home Medications Medication Instructions Recorded Alprazolam [Xanax] 1 mg PO QID PRN 08/23/14 Amlodipine Besylate [Norvasc -] 5 mg PO DAILY 08/23/14 Salmeterol/Fluticasone [Advair 1 inh PO BID PRN 02/19/19 100Mcg/50Mcg -] Furosemide 20 mg PO DAILY 04/21/19 Gabapentin 300 mg PO TID 04/21/19 Liraglutide [Saxenda] 0.6 mg SQ DAILY 04/21/19 Oxycodone HCl/Acetaminophen 1 tab PO TID 04/21/19 [Oxycodone-Acetaminophen 10-325] Pantoprazole Sodium 40 mg PO DAILY 04/21/19 Venlafaxine HCl ER [Effexor Xr -] 37.5 mg PO DAILY 04/21/19 traZODone HCL [Trazodone HCl] 2 tab PO HS 04/21/19 REVIEW OF SYSTEMS CONSTITUTIONAL: Absent: fever, chills, diaphoresis, generalized weakness, malaise, loss of appetite, weight change HEENT: Absent: rhinorrhea, nasal congestion, throat pain, throat swelling, difficulty swallowing, mouth swelling, ear pain, eye pain, visual changes CARDIOVASCULAR: Absent: chest pain, syncope, palpitations, irregular heart rate, lightheadedness , peripheral edema RESPIRATORY: Absent: cough, shortness of breath, dyspnea with exertion, orthopnea, wheezing, stridor, hemoptysis GASTROINTESTINAL: Absent: abdominal pain, abdominal distension, nausea, vomiting, diarrhea, constipation, melena, hematochezia GENITOURINARY: Absent: dysuria, frequency, urgency, hesitancy, hematuria, flank pain, genital pain MUSCULOSKELETAL: Absent: myalgia, arthralgia, joint swelling, back pain, neck pain SKIN: Absent: rash, itching, pallor HEMATOLOGIC/IMMUNOLOGIC: Absent: easy bleeding, easy bruising, lymphadenopathy, frequent infections ENDOCRINE: Absent: unexplained weight gain, unexplained weight loss, heat intolerance, cold intolerance NEUROLOGIC: +dizziness, unsteady gait Absent: headache, focal weakness or paresthesias, dizziness, unsteady gait, seizure, mental status changes, bladder or bowel incontinence PSYCHIATRIC: Absent: anxiety, depression, suicidal or homicidal ideation, hallucinations. PHYSICAL EXAMINATION Vital Signs - 24 hr 04/21/19 11:19 Temperature 98.7 F Pulse Rate 90 Respiratory 19 Rate Blood Pressure 140/88 O2 Sat by Pulse 97 Oximetry (%) GENERAL: Awake, alert, and fully oriented, in no acute distress. HEAD: Normal with no signs of trauma. EYES: Pupils equal, round and reactive to light, extraocular movements intact, sclera anicteric, conjunctiva clear. No lid lag. LUNGS: Breath sounds equal, clear to auscultation bilaterally. No wheezes, and no crackles. No accessory muscle use. HEART: Regular rate and rhythm, normal S1 and S2 ABDOMEN: Soft, nontender, not distended MUSCULOSKELETAL: Normal range of motion at all joints. No bony deformities or tenderness. No CVA tenderness. UPPER EXTREMITIES: 2+ pulses, warm, well-perfused. No cyanosis. No clubbing. No peripheral edema. LOWER EXTREMITIES: 2+ pulses, warm, well-perfused. No calf tenderness. No peripheral edema. NEUROLOGICAL: Cranial nerves II-XII intact. Normal speech. Normal gait. Laboratory Results - last 24 hr 04/21/19 04/21/19 04/21/19 11:45 11:48 11:48 WBC RBC Hgb Hct MCV MCH MCHC RDW Plt Count MPV Absolute Neuts (auto) Neutrophils % Lymphocytes % Monocytes % Eosinophils % Basophils % PT with INR INR PTT (Actin FS) Sodium 139 Potassium 3.8 Chloride 104 Carbon Dioxide 26 Anion Gap 9 BUN 14.0 Creatinine 0.6 Est GFR (CKD-EPI)AfAm 124.05 Est GFR (CKD-EPI)NonAf 107.03 Random Glucose 127 H Calcium 8.9 Total Bilirubin 0.8 AST 144 H ALT 80 H Alkaline Phosphatase 79 Troponin I Total Protein 7.3 Albumin 3.9 Triglycerides Cholesterol Total LDL Cholesterol HDL Cholesterol Urine Color Yellow Urine Appearance Clear Urine pH 6.0 Urine Protein Negative Urine Glucose (UA) Negative Urine Ketones Negative Urine Blood Negative Urine Nitrite Negative Urine Bilirubin Negative Urine Urobilinogen 0.2 Ur Leukocyte Esterase Negative Urine HCG, Qual Negative Alcohol, Quantitative 04/21/19 04/21/19 04/21/19 11:48 11:50 11:50 WBC 6.1 RBC 4.17 Hgb 14.4 Hct 43.0 MCV 103.1 H MCH 34.6 H MCHC 33.5 RDW 14.4 Plt Count 221 MPV 8.3 Absolute Neuts (auto) 4.1 Neutrophils % 66.2 Lymphocytes % 26.1 Monocytes % 6.3 Eosinophils % 0.8 Basophils % 0.6 PT with INR 12.2 INR 1.09 PTT (Actin FS) 29.2 Sodium Potassium Chloride Carbon Dioxide Anion Gap BUN Creatinine Est GFR (CKD-EPI)AfAm Est GFR (CKD-EPI)NonAf Random Glucose Calcium Total Bilirubin AST ALT Alkaline Phosphatase Troponin I Total Protein Albumin Triglycerides Cholesterol Total LDL Cholesterol HDL Cholesterol Urine Color Urine Appearance Urine pH Urine Protein Urine Glucose (UA) Urine Ketones Urine Blood Urine Nitrite Urine Bilirubin Urine Urobilinogen Ur Leukocyte Esterase Urine HCG, Qual Alcohol, Quantitative < 3 04/21/19 04/21/19 11:50 11:50 WBC RBC Hgb Hct MCV MCH MCHC RDW Plt Count MPV Absolute Neuts (auto) Neutrophils % Lymphocytes % Monocytes % Eosinophils % Basophils % PT with INR INR PTT (Actin FS) Sodium Potassium Chloride Carbon Dioxide Anion Gap BUN Creatinine Est GFR (CKD-EPI)AfAm Est GFR (CKD-EPI)NonAf Random Glucose Calcium Total Bilirubin AST ALT Alkaline Phosphatase Troponin I < 0.03 Total Protein Albumin Triglycerides 235 H Cholesterol 274 H Total LDL Cholesterol 151 H HDL Cholesterol 76 H Urine Color Urine Appearance Urine pH Urine Protein Urine Glucose (UA) Urine Ketones Urine Blood Urine Nitrite Urine Bilirubin Urine Urobilinogen Ur Leukocyte Esterase Urine HCG, Qual Alcohol, Quantitative ASSESSMENT/PLAN: 48-year-old female with a PMH significant for HTN, HLD, asthma, polysubstance abuse, chronic back pain, and depression. Admitted for r/o TIA/CVA. r/o TIA/CVA --improved, no focal deficits on exam, steady gait --CT head unremarkable for acute process --MRI/MRA --US carotids --Echo --neuro consult --ASA, statin Hypertension --BP stable, continue amlodipine Hyperlipidemia --continue Lipitor Asthma Polysubstance abuse --denies ever experiencing alcohol withdrawal --monitor closely Chronic back pain --continue gabapentin Depression --continue xanax PRN, Effexor FEN Fluids: PO intake adequate Electrolytes: replete as indicated Nutrition: low sodium DVT prophylaxis: subq heparin Physical therapy DispoL continues to requuire inpatient care. Full code. Visit type - Emergency Visit Emergency Visit: Yes ED Registration Date: 04/21/19 Care time: The patient presented to the Emergency Department on the above date and was hospitalized for further evaluation of their emergent condition. - New Patient This patient is new to me today: Yes Date on this admission: 04/25/19 - Critical Care Critical Care patient: No Mar Leggett [employer]: This documentation has been prepared by the Mendez goldebrg Maria, SCRIBE, under my direction and personally reviewed by me in its entirety. I confirm that the documentation accurately reflects all work, treatment, procedures, and medical decision making performed by me.
[2019-04-21 14:31] LABS: COCAINE, UR NEGATIVE ng/ml (CUTOFF=300); METHADONE, UR NEGATIVE ng/ml (CUTOFF=300); OPIATES, URI NEGATIVE ng/ml (CUTOFF=300); PHENCYCLIDINE,URINE NEGATIVE ng/ml (CUTOFF=25); URINE AMPHETAMINES NEGATIVE ng/ml (CUTOFF=500); URINE BARBITURATES NEGATIVE ng/ml (CUTOFF=200)
[2019-04-21] MEDS ORDERED: GABAPENTIN 300 MG CAPSULE (FP) ONE (14:33)
[2019-04-21] MEDS: GABAPENTIN 300 MG CAPSULE (FP) PO SCH ×2 (14:35→21:18)
[2019-04-21 14:36] LABS: URINE BENZODIAZEPINES POSITIVE ng/ml (CUTOFF=200)
--- NOTE | 2019-04-21 15:29 | EKG ---
Test Reason : Blood Pressure : / mmHG Vent. Rate : 086 BPM Atrial Rate : 086 BPM P-R Int : 140 ms QRS Dur : 084 ms QT Int : 374 ms P-R-T Axes : 047 009 017 degrees QTc Int : 447 ms NORMAL SINUS RHYTHM NORMAL ECG WHEN COMPARED WITH ECG OF 01-NOV-2016 19:44, T WAVE INVERSION LESS EVIDENT IN INFERIOR LEADS T WAVE AMPLITUDE HAS INCREASED IN ANTEROLATERAL LEADS Confirmed by Rober Dai ([id number]) on 04/21/2019 3:29:00 PM Referred By: MICHELLE DIANA Confirmed By:Rober Dai
[2019-04-21 15:45] VITALS: BMI 34.0
--- NOTE | 2019-04-21 15:45 | CON.NEURO ---
Consult Consult Specialty:: Arlette Referred by:: PCP - History of Present Illness History of Present Illness: 48-year-old right-handed female patient with multiple medical problems including chronic low back pain status post fusion, opiate dependency, hypertension who presented from the [facility] M.[facility] with 3 days history of dizziness according to the emergency room report the patient came in with slurring speech headache and difficulty walking difficulty with equilibrium. - History Source History Provided By: Patient Limitations to Obtaining History: No Limitations - Past Medical History Cardio/Vascular: Yes: HTN ...LMP: 11/30/15 Psych: Yes: Depression - Past Surgical History Past Surgical History: Yes: Joint Replacement, Laminectomy (lumbar) - Alcohol/Substance Use Hx Alcohol Use: Yes (2/day) - Smoking History Smoking history: Current every day smoker Have you smoked in the past 12 months: Yes Aproximately how many cigarettes per day: 10 - Social History ADL: Independent Occupation: teacher History of Recent Travel: No Home Medications - Allergies Allergies/Adverse Reactions: Allergies Allergy/AdvReac Type Severity Reaction Status Date / Time No Known Drug Allergies Allergy Verified 04/21/19 11:20 - Home Medications Home Medications: Ambulatory Orders Alprazolam [Xanax] 1 mg PO QID PRN 08/23/14 Amlodipine Besylate [Norvasc -] 5 mg PO DAILY 08/23/14 Salmeterol/Fluticasone [Advair 100Mcg/50Mcg -] 1 inh PO BID PRN 02/19/19 Furosemide 20 mg PO DAILY 04/21/19 Gabapentin 300 mg PO TID 04/21/19 Liraglutide [Saxenda] 0.6 mg SQ DAILY 04/21/19 Oxycodone HCl/Acetaminophen [Oxycodone-Acetaminophen 10-325] 1 tab PO TID Pantoprazole Sodium 40 mg PO DAILY 04/21/19 Venlafaxine HCl ER [Effexor Xr -] 37.5 mg PO DAILY 04/21/19 traZODone HCL [Trazodone HCl] 2 tab PO HS 04/21/19 Family Medical History Family History: Unremarkable Review of Systems - Review of Systems Neurological: reports: Headache, Incoordination, Numbness, Parasthesia Physical Exam-Neuro Vital Signs: Vital Signs Temperature 98.7 F 04/21/19 11:19 Pulse Rate 94 H 04/21/19 13:59 Respiratory Rate 18 04/21/19 13:59 Blood Pressure 122/81 04/21/19 13:59 O2 Sat by Pulse Oximetry (%) 96 04/21/19 13:59 Labs: CBC, BMP 04/21/19 11:50 04/21/19 11:45 INR, PTT INR 1.09 (0.82-1.09) 04/21/19 11:50 - Neuro Exam Level Of Consciousness: Yes: Oriented to Person, Oriented to Place, Oriented to Time Eyes: Yes: PERRLA Speech: WNL Dominant Hand: Right Cranial Nerves II-XII Intact: Yes Gag: Present DTR's: 1+ Left Bicep, 1+ Right Bicep, 1+ Left Tricep, 1+ Right Tricep Response to light touch: Normal Response to pain prick: Normal Response to temperature: Normal Motor Strength: 3/5: Left Arm, Right Arm, Left Leg, Right Leg Gait: Deferred Imaging - Results Cat Scan: Image Reviewed MRI: Image Reviewed Problem List - Problems (1) Dizziness Assessment/Plan: ?? TIA due to speech 1. MRI brain 2. ASA 3. smoking cessation 4. weight loss 5. Statin Many thanks wilmar Chong MD Code(s): R42 - DIZZINESS AND GIDDINESS
[2019-04-21] MEDS: ALPRAZolam 1 MG TABLET PO PRN (17:30)
[2019-04-21] MEDS ORDERED: PT OWN MED DRAWER 7, Y5N ONE (20:44)
[2019-04-21] MEDS: HEPARIN NA (PORCINE) 5,000 UNITS/ML 1ML VIAL SQ SCH (21:19)
[2019-04-21] MEDS: FLUTICASONE/SALMETEROL 100 MCG/50 MCG DISKUS IH SCH (21:19)
[2019-04-21] MEDS ORDERED: ATORVASTATIN CA 80 MG TABLET (FP) PO SCH (22:00)
[2019-04-21] MEDS ORDERED: traZODone HCL 50 MG TABLET (FP) PO SCH (22:00)
[2019-04-22] MEDS: GABAPENTIN 300 MG CAPSULE (FP) PO SCH (06:28)
[2019-04-22] MEDS: HEPARIN NA (PORCINE) 5,000 UNITS/ML 1ML VIAL SQ SCH (06:28)
[2019-04-22 08:10] LABS: BASO % 0.6 % (0-2.0); EOS % 1.2 % (0-4.5); HEMATOCRIT 41.3 % (32.4-45.2); HEMOGLOBIN 14.1 GM/dl (10.7-15.3); LYMPH % 30.6 % (8-40); MCH 34.5 pg (25.7-33.7); MCHC 34.3 g/dl (32.0-36.0); MEAN CELL VOLUME 100.8 fl (80-96); MEAN PLT VOLUME 8.4 fl (7.5-11.1); MONO % 5.9 % (3.8-10.2); NEUT % 61.7 % (42.8-82.8); PLATELET COUNT 194 K/MM3 (134-434); RBC 4.09 M/mm3 (3.60-5.2); RDW 14.1 % (11.6-15.6); WHITE BLOOD COUNT 4.9 K/mm3 (4.0-10.8)
[2019-04-22] MEDS ORDERED: MAGNESIUM SULF 50% (8.12 MEQ/2 ML-1 GM VIAL) IVPB ONE (08:39)
[2019-04-22] MEDS ORDERED: MAGNESIUM SULFATE IN WATER 2 GM/50 ML IVPB IVPB ONE (09:00)
[2019-04-22] MEDS ORDERED: PT OWN MED DRAWER 7, Y5N ONE (09:04)
[2019-04-22] MEDS: FLUTICASONE/SALMETEROL 100 MCG/50 MCG DISKUS IH SCH (09:13)
[2019-04-22] MEDS: ALPRAZolam 1 MG TABLET PO PRN (09:31)
[2019-04-22] MEDS ORDERED: amLODIPine BESYLATE 5 MG TABLET (FP) PO SCH (10:00)
[2019-04-22] MEDS ORDERED: PANTOPRAZOLE 40 MG TABLET (FP) PO SCH (10:00)
[2019-04-22] MEDS ORDERED: VENLAFAXINE HCL 37.5 MG E.R. CAPSULE (FP) PO SCH (10:00)
[2019-04-22] MEDS ORDERED: FUROSEMIDE 20 MG TABLET (FP) PO SCH (10:00)
[2019-04-22] MEDS ORDERED: ASPIRIN 325 MG ENTERIC COATED TABLET (FP) PO SCH (10:00)
[2019-04-22 14:41] VITALS: BP 142/86; PULSE 85; TEMP 98.2
--- NOTE | 2019-04-22 15:45 | ECHO ---
Name: ABBI PRICE Exam:Adult Echocardiogram Study Date: 04/22/2019 01:34 PM Age: 48 yrs Reason For Study: CVA Height: 62 in Weight: 176 lb BSA: 1.8 m2 MMode/2D Measurements & Calculations IVSd: 1.2 cm Ao root diam: 2.5 cm LVIDd: 4.3 cm LA dimension: 2.6 cm LVIDs: 2.9 cm LVPWd: 0.97 cm EDV(Teich): 83.6 ml LVOT diam: 2.0 cm ESV(Teich): 31.2 ml Doppler Measurements & Calculations MV E max edgar: 101.7 cm/sec MV A max edgar: 103.8 cm/sec MV dec slope: 503.0 cm/sec2 MV E/A: 0.98 Ao V2 max: 163.6 cm/sec LV V1 max P.1 mmHg Ao max P.7 mmHg LV V1 max: 123.6 cm/sec MARGARET(V,D): 2.4 cm2 TR max edgar: 207.6 cm/sec PA V2 max: 107.3 cm/sec TR max P.2 mmHg PA max P.6 mmHg Procedure A two-dimensional transthoracic echocardiogram with color flow and Doppler was performed. Left Ventricle The left ventricular size, thickness and function are normal. The left ventricular ejection fraction is normal. Left Ventricular Filling pattern is normal for age. The left ventricular wall motion is lorrie l. Right Ventricle The right ventricle is not well visualized. Atria Normal left and right atrial size and function. Mitral Valve There is mild mitral annular calcification. There is no mitral valve stenosis. There is trace to mild mitral regurgitation. Tricuspid Valve There is mild tricuspid valve thickening. There is no tricuspid stenosis. There is Trace to mild tric uspid regurgitation. Right ventricular systolic pressure is normal. Aortic Valve The aortic valve is normal in structure and function. No hemodynamically significant valvular aortic stenosis. No aortic regurgitation is present. Pulmonic Valve The pulmonic valve is not well visualized. Interpretation Summary Clinical correlation is recommended. The left ventricular wall motion is normal. The left ventricular ejection fraction is normal. The left ventricular size, thickness and function are normal There is Trace to mild tricuspid regurgitation. Right ventricular systolic pressure is normal. The right ventricle is not well visualized. Left Ventricular Filling pattern is normal for age. Clinical correlation is recommended. MD Anish Stout 04/22/2019 03:45 PM
--- NOTE | 2019-04-22 15:58 | EKG ---
Test Reason : Blood Pressure : / mmHG Vent. Rate : 077 BPM Atrial Rate : 077 BPM P-R Int : 146 ms QRS Dur : 086 ms QT Int : 392 ms P-R-T Axes : 047 009 016 degrees QTc Int : 443 ms NORMAL SINUS RHYTHM NORMAL ECG WHEN COMPARED WITH ECG OF 21-APR-2019 11:49, NO SIGNIFICANT CHANGE WAS FOUND Confirmed by TOYIN MARTINEZ MD ([id number]) on 04/22/2019 3:58:25 PM Referred By: GAURANG OSBORN Confirmed By:TOYIN MARTINEZ MD
== END 2019-04-22 17:28 | disposition home or self-care (01) ==
LOC: FER 11:17 → SUPCPDRO 11:17 → FM/S 13:15
PROVIDERS: ADMIT Internal Medicine; ATTEND Nurse Practitioner Acute Care
PROC: 3E033GC Introduction of Other Therapeutic Substance into Peripheral Vein, Percutaneous Approach (ICD-10-PCS; principal; 2019-04-21)
PROC: 3E013GC Introduction of Other Therapeutic Substance into Subcutaneous Tissue, Percutaneous Approach (ICD-10-PCS; 2019-04-21)
PROC: 3E0F7GC Introduction of Other Therapeutic Substance into Respiratory Tract, Via Natural or Artificial Opening (ICD-10-PCS; 2019-04-21)
DX: E87.8 Other disorders of electrolyte and fluid balance, not elsewhere classified (principal); R42 Dizziness and giddiness; I10 Essential (primary) hypertension; E78.5 Hyperlipidemia, unspecified; M54.9 Dorsalgia, unspecified; G89.29 Other chronic pain; J45.909 Unspecified asthma, uncomplicated; F17.210 Nicotine dependence, cigarettes, uncomplicated; Z79.891 Long term (current) use of opiate analgesic
CPT/HCPCS: 36415; 70450-TC; 70544-TC; 70551-TC; 80053; 80061; 80307; 81003; 83090; 83735; 84484; 84703; 85025; 85610; 85730; 86850; 86900; 86901; 93005; 93306-TC; 93880-TC; 97116-GP; 97161-GP; 99285-25; G0378; J1644

== ENCOUNTER 2019-10-22 07:34 | Inpatient (IN) | payer BC ==
[2019-10-21 14:38] VITALS: BMI 32.9
[2019-10-22] MEDS ORDERED: VANCOMYCIN 1,000 MG VIAL (RESTRICTED TO ID ONLY) ONE ×3 (10:12→15:41)
[2019-10-22] MEDS ORDERED: THROMBIN (BOVINE) 20,000 UNIT VIAL TP ONE (10:12)
[2019-10-22] MEDS ORDERED: BUPIVACAINE LIPOSOME/PF (EXPAREL) 266 MG/20 ML VIAL ONE (10:13)
[2019-10-22] MEDS ORDERED: GENTAMICIN SO4 80 MG/2 ML VIAL ONE (10:15)
[2019-10-22] MEDS ORDERED: MIDAZOLAM HCL 2 MG/2 ML SINGLE DOSE VIAL ONE ×2 (10:54)
[2019-10-22] MEDS ORDERED: fentaNYL CITRATE 250 MCG/5 ML VIAL ONE ×3 (10:54→12:25)
[2019-10-22] MEDS ORDERED: PROPOFOL 20 ML ONE (10:54)
[2019-10-22] MEDS ORDERED: ROCURONIUM BROMIDE 50 MG/5 ML SYRINGE ONE ×3 (10:55→12:26)
[2019-10-22] MEDS ORDERED: morphine SULFATE/PF 0.5 MG/ML (2cc Syringe - QUVA) ONE (10:58)
[2019-10-22] MEDS ORDERED: ceFAZolin SODIUM 1 GM VIAL ONE ×2 (11:32→15:41)
[2019-10-22] MEDS ORDERED: VANCOMYCIN 1,000 MG VIAL (RESTRICTED TO ID ONLY) IVPB ONE (11:43)
[2019-10-22] MEDS ORDERED: ceFAZolin SODIUM 1 GM VIAL IVPB ONE ×2 (11:45→15:40)
[2019-10-22] MEDS ORDERED: HYDROmorphone HCl 2 MG/ML VIAL ONE ×2 (12:24→15:31)
[2019-10-22] MEDS ORDERED: ONDANSETRON 4 MG/2 ML VIAL ONE ×2 (12:32→15:41)
[2019-10-22] MEDS ORDERED: LIDOCAINE HCL 2% JELLY (5 ML/TUBE) ONE ×2 (12:32→15:41)
[2019-10-22] MEDS ORDERED: SODIUM CHLORIDE 0.9% P/F 10 ML VIAL IJ ONE (12:32)
[2019-10-22] MEDS ORDERED: DEXAMETHASONE SOD PHOSPHATE 4 MG/1 ML VIAL ONE ×2 (12:32→15:41)
[2019-10-22] MEDS ORDERED: LIDOCAINE HCL/PF 2% SDV 5ML VIAL ONE ×2 (12:32→15:41)
[2019-10-22] MEDS ORDERED: TRANEXAMIC ACID 1000 MG/10 ML VIAL ONE (12:32)
[2019-10-22] MEDS ORDERED: LIDOCAINE 1%/EPI 1:100000 (20 ML MULTI DOSE VIAL) PNB ONE (12:44)
[2019-10-22] MEDS ORDERED: BACITRACIN 50,000 UNITS VIAL NR ONE (12:45)
[2019-10-22] MEDS ORDERED: HYDROGEN PEROXIDE 473 ML PO ONE (12:45)
[2019-10-22] MEDS ORDERED: GENTAMICIN SO4 80 MG/2 ML VIAL IVPB ONE (12:45)
[2019-10-22] MEDS ORDERED: DESFLURANE GAS 240 ML BOTTLE IH ONE (14:08)
[2019-10-22] MEDS ORDERED: SEVOFLURANE 250 ML BTL ONE (14:08)
[2019-10-22] MEDS ORDERED: NEOSTIGMINE METHYLSULFATE 0.5 MG/1 ML - 10 ML MDV ONE (15:21)
[2019-10-22] MEDS: ACETAMINOPHEN 1000 MG/100 ML VIAL (NON FORMULARY) IVPB ONE ×2 (15:40→17:40)
[2019-10-22] MEDS ORDERED: GLYCOPYRROLATE 0.2 MG/1 ML VIAL ONE (15:41)
[2019-10-22] MEDS ORDERED: KETAMINE HCL 200 MG/20 ML VIAL ONE (15:51)
[2019-10-22] MEDS ORDERED: BUPIVACAINE HCL/PF 0.5% (5 MG/ML) 30 ML VIAL IJ ONE (16:40)
[2019-10-22] MEDS ORDERED: BUPIVACAINE LIPOSOME/PF (EXPAREL) 266 MG/20 ML VIAL NR ONE (16:40)
[2019-10-22] MEDS ORDERED: LABETALOL HCL 5 MG/1 ML (100MG/20 ML VIAL) ONE (17:12)
[2019-10-22] MEDS ORDERED: oxyCODONE HCL 5 MG TABLET PO PRN (17:14)
[2019-10-22] MEDS ORDERED: morphine SULFATE 4 MG/ML VIAL IVPUSH PRN (17:14)
[2019-10-22] MEDS ORDERED: diphenhydrAMINE HCL 25 MG CAPSULE (FP) PO PRN (17:14)
[2019-10-22] MEDS ORDERED: ALPRAZolam 1 MG TABLET PO PRN (17:19)
[2019-10-22] MEDS ORDERED: ONDANSETRON 4 MG/2 ML VIAL IVPUSH PRN (17:23)
[2019-10-22] MEDS ORDERED: diazePAM CARPU-JECT 10 MG/2 ML DISP.SYRIN IVPUSH ONE (17:28)
--- NOTE | 2019-10-22 17:28 | OP ---
Operative Note - Note: Operative Date: 10/22/19 ([facility]) Pre-Operative Diagnosis: multi-level lumbar DDD, s/p previous fusion Operation: Exploration of spinal fusion, removal of hardware and osteotomies, T12-S2 laminectomies with T12, L1, L5-S1 transpedicular decompression, and deformity correction with T12-S2 pedicle screw fusion Post-Operative Diagnosis: Same as Pre-op Surgeon: Adrian Lehman Dehydrogenation Operator: Mihir Calhoun Anesthesia: General, Spinal, Local Specimens Removed: screws, rods (2), bone and soft tissue Estimated Blood Loss (mls): 1,500
[2019-10-22] MEDS ORDERED: LACTATED RINGERS SOLUTION 1,000 ML IV SCH (17:30)
[2019-10-22] MEDS: HYDROmorphone *PCA* 10MG/50ML DISP.SYRIN PCA SCH (17:30)
[2019-10-22] MEDS ORDERED: diazePAM 5 MG TABLET PO PRN (17:31)
[2019-10-22] MEDS ORDERED: diazePAM CARPU-JECT 10 MG/2 ML DISP.SYRIN ONE (18:17)
[2019-10-22] MEDS: LACTATED RINGERS SOLUTION 1,000 ML/1,000 ML INFUS.BAG IV SCH (19:20)
--- NOTE | 2019-10-22 19:26 | CONSULT ---
Consultation: REQUESTING PROVIDER: CONSULT REQUEST: We have been asked to medically evaluate this patient for post operative management. HISTORY OF PRESENT ILLNESS: This is a 49 yo female with PMH of vertigo, HTN, depression & anxiety admitted for exploration of spinal fusion, removal of hardware and osteotomies, T12-S2 laminectomies with T12, L1, L5-S1 transpedicular decompression, and deformity correction with T12-S2 pedicle screw fusion. Upon my encounter, pt admits to pain that is 8/10. Denies subjective fever, chills, shortness of breath, chest pain, abdominal pain, nausea or vomiting. REVIEW OF SYSTEMS: As per HPI. PHYSICAL EXAMINATION Vital Signs - 24 hr 10/22/19 10/22/19 10/22/19 10:23 17:30 17:35 Pulse Rate 93 H 93 H Respiratory 20 20 Rate Blood Pressure 127/93 127/93 O2 Sat by Pulse 97 98 98 Oximetry (%) 10/22/19 17:50 Pulse Rate 93 H Respiratory 18 Rate Blood Pressure 113/70 O2 Sat by Pulse 96 Oximetry (%) GENERAL: 49 year old woman, appears stated age. Lying in bed, not in acute distress. HEENT: NCAT, EOMI. Nares patent. LUNGS: Clear to auscultation b/l, no wheezes. HEART: +S1, S2 regular, tachycardic. No murmurs. ABDOMEN: Bowel sounds present in all 4 quadrants. Nontender to palpation. SKIN: Bandage in lumbar region. Surgical site clean, dry and intact. SHAMIKA draining serosanguinous fluid. Laboratory Results - last 24 hr 10/22/19 10:08 Blood Type A POSITIVE Antibody Screen Negative Crossmatch See Detail ASSESSMENT/PLAN: This is a 49 yo female with PMH of vertigo, HTN, depression & anxiety admitted for exploration of spinal fusion, removal of hardware and osteotomies, T12-S2 laminectomies with T12, L1, L5-S1 transpedicular decompression, and deformity correction with T12-S2 pedicle screw fusion. Stated to have 8/10 pain at surgical site. Discussed w/ Dr. Lehman with management of pt over phone . #Neuro -Alert and awake #Cardio Sinus tachycardia, likely pain-induced -Pain control with FLY SETTER #GI -Diet as tolerated #Heme Received 1 unit pRBC -Replete as needed #MSK Status post removal of hardware & osteotomies, laminectomy, transpedicular decompression, deformity correction w/ pedical screw fusion. -Discussed w/ Dr. Lehman (surgery). Recommended: No NSAIDs. Pain control with FLY SETTER. Pt can be positioned to where she feels comfortable. No need to be kept flat. #FEN -LR 1000 mL @ 125mL/hr -Replete electrolytes as needed. -Diet as tolerated. #Ppx -DVT: SQH + SCDs -GI: protonix Dispo: We will continue to follow the patient in the ICU. Thank you for this consultative opportunity. Visit type - Emergency Visit Emergency Visit: Yes ED Registration Date: 10/22/19 Care time: The patient presented to the Emergency Department on the above date and was hospitalized for further evaluation of their emergent condition. - New Patient This patient is new to me today: No - Critical Care Critical Care patient: Yes Total Critical Care Time (in minutes): 35 Critical Care Statement: The care of this patient involved high complexity decision making to prevent further life threatening deterioration of the patient's condition and/or to evaluate & treat vital organ system(s) failure or risk of failure. ATTENDING PHYSICIAN STATEMENT I saw and evaluated the patient. I reviewed the resident's note and discussed the case with the resident. I agree with the resident's findings and plan as documented. SUBJECTIVE: OBJECTIVE: ASSESSMENT AND PLAN:
[2019-10-22] MEDS: DOCUSATE SODIUM 100 MG CAPSULE (FP) PO SCH (22:39)
[2019-10-22] MEDS: HEPARIN NA (PORCINE) 5,000 UNITS/ML 1ML VIAL SQ SCH (22:39)
[2019-10-22] MEDS: ceFAZolin 2 GRAM PREMIX BAG IVPB SCH (22:40)
[2019-10-22] MEDS: ACETAMINOPHEN 1000 MG/100 ML VIAL (NON FORMULARY) IVPB SCH (22:40)
[2019-10-22] MEDS: FLUTICASONE/SALMETEROL 100 MCG/50 MCG DISKUS IH SCH (22:54)
[2019-10-22] MEDS: traZODone HCL 100 MG TABLET (FP) PO SCH (22:54)
[2019-10-23] MEDS: HEPARIN NA (PORCINE) 5,000 UNITS/ML 1ML VIAL SQ SCH ×3 (05:49→22:17)
[2019-10-23] MEDS: DOCUSATE SODIUM 100 MG CAPSULE (FP) PO SCH ×3 (05:49→22:17)
[2019-10-23] MEDS: ACETAMINOPHEN 1000 MG/100 ML VIAL (NON FORMULARY) IVPB SCH ×2 (05:50→12:13)
[2019-10-23] MEDS: LACTATED RINGERS SOLUTION 1,000 ML/1,000 ML INFUS.BAG IV SCH ×3 (05:51→22:29)
[2019-10-23] MEDS: ceFAZolin 2 GRAM PREMIX BAG IVPB SCH ×2 (06:05→14:19)
[2019-10-23] MEDS ORDERED: PCA PUMP NR ONE ×3 (07:00→21:52)
[2019-10-23 07:09] LABS: HEMATOCRIT 30.8 % (32.4-45.2); HEMOGLOBIN 10.3 GM/dL (10.7-15.3); MCH 32.7 pg (25.7-33.7); MCHC 33.3 g/dl (32.0-36.0); MEAN CELL VOLUME 98.2 fl (80-96); MEAN PLT VOLUME 9.3 fl (7.5-11.1); PLATELET COUNT 207 K/MM3 (134-434); RBC 3.14 M/mm3 (3.60-5.2); RDW 16.3 % (11.6-15.6)
[2019-10-23] MEDS: HYDROmorphone *PCA* 10MG/50ML DISP.SYRIN PCA SCH ×2 (07:27→22:20)
[2019-10-23 07:36] LABS: BLOOD UREA NITROGEN 6.8 mg/dL (7-18); CALCIUM 7.6 mg/dL (8.5-10.1); CREATININE 0.6 mg/dL (0.55-1.3); POTASSIUM 4.5 mmol/L (3.5-5.1)
[2019-10-23] MEDS: FOLIC ACID 1 MG TABLET (FP) PO SCH (09:31)
[2019-10-23] MEDS: FUROSEMIDE 20 MG TABLET (FP) PO SCH (09:31)
[2019-10-23] MEDS: PANTOPRAZOLE 40 MG TABLET PO SCH (09:31)
[2019-10-23] MEDS ORDERED: PT OWN MED DRAWER 7, Y5N ONE ×2 (09:33→14:46)
[2019-10-23] MEDS: VENLAFAXINE HCL 37.5 MG E.R. CAPSULE PO SCH (09:34)
[2019-10-23] MEDS: FLUTICASONE/SALMETEROL 100 MCG/50 MCG DISKUS IH SCH ×2 (09:35→22:16)
[2019-10-23] MEDS: FERROUS SO4 325 MG TABLET (FP) PO SCH (10:51)
[2019-10-23] MEDS: amLODIPine BESYLATE 5 MG TABLET (FP) PO SCH (10:51)
--- NOTE | 2019-10-23 11:18 | PN ---
Progress Note, Physician Chief Complaint: s/p lumbar revision of fusion under general anesthesia History of Present Illness: post op day one, RENTAL SALESPERSON for post op pain control, general anesthesia - Current Medication List Current Medications: Active Medications Acetaminophen (Ofirmev Injection -) 1,000 mg IVPB Q6H [facility] Stop: 10/23/19 17:31 Last Admin: 10/23/19 05:50 Dose: 1,000 mg Documented by: Alprazolam (Xanax) 1 mg PO Q6H PRN PRN Reason: ANXIETY Last Admin: 10/22/19 22:56 Dose: 1 mg Documented by: Amlodipine Besylate (Norvasc -) 5 mg PO DAILY [facility] Last Admin: 10/23/19 10:51 Dose: Not Given Documented by: Cefazolin Sodium/Dextrose (Ancef 2 Gm Premixed Ivpb -) 2 gm IVPB Q8H [facility] Stop: 10/23/19 22:59 Last Admin: 10/23/19 06:05 Dose: 2 gm Documented by: Diazepam (Valium -) 10 mg PO Q8H PRN PRN Reason: BACK PAIN Stop: 10/25/19 17:31 Diphenhydramine HCl (Benadryl -) 25 mg PO Q6H PRN PRN Reason: FOR ITCHING Docusate Sodium (Colace -) 100 mg PO TID [facility] Last Admin: 10/23/19 05:49 Dose: 100 mg Documented by: Ferrous Sulfate (Feosol -) 325 mg PO DAILY [facility] Last Admin: 10/23/19 10:51 Dose: 325 mg Documented by: Folic Acid (Folic Acid -) 1 mg PO DAILY [facility] Last Admin: 10/23/19 09:31 Dose: 1 mg Documented by: Furosemide (Lasix -) 20 mg PO DAILY [facility] Last Admin: 10/23/19 09:31 Dose: 20 mg Documented by: Heparin Sodium (Porcine) (Heparin -) 5,000 unit SQ TID [facility] Last Admin: 10/23/19 05:49 Dose: 5,000 unit Documented by: Hydromorphone HCl (Hydromorphone 10 Mg/50 Ml-Ns) 10 mg RENTAL SALESPERSON RENTAL SALESPERSON [facility]; Protocol Stop: 10/29/19 17:24 Last Admin: 10/23/19 07:27 Dose: 10 mg Documented by: Lactated Ringer's (Lactated Ringers Solution) 1,000 ml in 1,000 mls @ 125 mls/hr IV ASDIR [facility] Last Admin: 10/23/19 05:51 Dose: 125 mls/hr Documented by: Morphine Sulfate (Morphine Sulfate) 4 mg IVPUSH Q4H PRN PRN Reason: PAIN LEVEL 7 - 10 Ondansetron HCl (Zofran Injection) 4 mg IVPUSH Q6H PRN PRN Reason: NAUSEA Oxycodone HCl (Roxicodone -) 5 mg PO Q4H PRN PRN Reason: PAIN LEVEL 1-5 Oxycodone HCl (Roxicodone -) 10 mg PO Q4H PRN PRN Reason: PAIN LEVEL 6-10 Pantoprazole Sodium (Protonix -) 40 mg PO DAILY [facility] Last Admin: 10/23/19 09:31 Dose: 40 mg Documented by: Fluticasone/Salmeterol (Advair 100mcg/50mcg -) 1 puff IH BID [facility] Last Admin: 10/23/19 09:35 Dose: Not Given Documented by: Trazodone HCl (Desyrel -) 200 mg PO HS [facility] Last Admin: 10/22/19 22:54 Dose: Not Given Documented by: Venlafaxine HCl (Effexor Xr -) 37.5 mg PO DAILY [facility] Last Admin: 10/23/19 09:34 Dose: 37.5 mg Documented by: - Objective Vital Signs: Vital Signs Temperature 97.8 F 10/23/19 07:30 Pulse Rate 86 10/23/19 11:00 Respiratory Rate 13 10/23/19 11:00 Blood Pressure 99/59 L 10/23/19 11:00 O2 Sat by Pulse Oximetry (%) 96 10/23/19 07:30 Constitutional: Yes: Well Nourished Cardiovascular: Yes: WNL Respiratory: Yes: WNL Gastrointestinal: Yes: WNL Labs: CBC, BMP 10/23/19 05:35 10/23/19 05:35 Assessment/Plan Complaining of pain helped by termite control servicer, tolerating po, still using termite control servicer fairly frequently, advised will keep termite control servicer and reevaluate tomorrow. Dept of anesh tesiology will continue to manage pain control.
[2019-10-23] MEDS: NICOTINE 21 MG/24 HOURS TOPICAL PATCH TD SCH (13:20)
[2019-10-23] MEDS ORDERED: RACEPINEPHRINE IH SOL 2.25% 11.25 MG/0.5 ML VIAL NEB ONE (14:05)
[2019-10-23] MEDS ORDERED: FAMOTIDINE 20 MG TABLET PO ONE (14:07)
[2019-10-23] MEDS ORDERED: ALBUTEROL SO4 2.5/IPRATROPIUM 0.5 INH SOL 3 ML VIAL.NEB. NEB ONE ×2 (14:07→14:47)
[2019-10-23] MEDS ORDERED: LORATADINE 10 MG TABLET PO ONE (14:07)
[2019-10-23] MEDS ORDERED: ALPRAZolam 1 MG TABLET PO PRN (14:08)
--- NOTE | 2019-10-23 15:19 | PN ---
Teaching Attending Note Name of Resident: Zeina Saab ATTENDING PHYSICIAN STATEMENT I saw and evaluated the patient. I reviewed the resident's note and discussed the case with the resident. I agree with the resident's findings and plan as documented. SUBJECTIVE: Patient seen and examined in the ICU earlier on rounds. In the afternoon developed what was thought to be stridor and given R Epi with improvement in her symptoms. At present no noted stridor and breathing appears comfortable. Intake & Output 10/20/19 10/21/19 10/22/19 10/23/19 23:59 23:59 23:59 23:59 Intake Total 4950 180 Output Total 3245 Balance 1705 180 Weight 180 lb Last Vital Signs Temp Pulse Resp BP Pulse Ox 97.8 F 88 13 96/60 96 10/23/19 07:30 10/23/19 12:00 10/23/19 12:00 10/23/19 12:00 10/23/19 07:30 Active Medications Acetaminophen (Ofirmev Injection -) 1,000 mg IVPB Q6H [facility] Stop: 10/23/19 17:31 Last Admin: 10/23/19 12:13 Dose: 1,000 mg Documented by: Alprazolam (Xanax) 0.1 mg PO Q6H PRN PRN Reason: ANXIETY Amlodipine Besylate (Norvasc -) 5 mg PO DAILY [facility] Last Admin: 10/23/19 10:51 Dose: Not Given Documented by: Cefazolin Sodium/Dextrose (Ancef 2 Gm Premixed Ivpb -) 2 gm IVPB Q8H [facility] Stop: 10/23/19 22:59 Last Admin: 10/23/19 14:19 Dose: 2 gm Documented by: Cyclobenzaprine HCl (Flexeril -) 5 mg PO TID PRN PRN Reason: BACK PAIN Diphenhydramine HCl (Benadryl -) 25 mg PO Q6H PRN PRN Reason: FOR ITCHING Docusate Sodium (Colace -) 100 mg PO TID [facility] Last Admin: 10/23/19 13:26 Dose: 100 mg Documented by: Ferrous Sulfate (Feosol -) 325 mg PO DAILY [facility] Last Admin: 10/23/19 10:51 Dose: 325 mg Documented by: Folic Acid (Folic Acid -) 1 mg PO DAILY [facility] Last Admin: 10/23/19 09:31 Dose: 1 mg Documented by: Furosemide (Lasix -) 20 mg PO DAILY [facility] Last Admin: 10/23/19 09:31 Dose: 20 mg Documented by: Heparin Sodium (Porcine) (Heparin -) 5,000 unit SQ TID [facility] Last Admin: 10/23/19 13:19 Dose: 5,000 unit Documented by: Hydromorphone HCl (Hydromorphone 10 Mg/50 Ml-Ns) 10 mg DIRECTOR OPERATING ROOM DIRECTOR OPERATING ROOM [facility]; Protocol Stop: 10/29/19 17:24 Last Admin: 10/23/19 07:27 Dose: 10 mg Documented by: Lactated Ringer's (Lactated Ringers Solution) 1,000 ml in 1,000 mls @ 125 mls/hr IV ASDIR [facility] Last Admin: 10/23/19 13:22 Dose: 125 mls/hr Documented by: Morphine Sulfate (Morphine Sulfate) 4 mg IVPUSH Q4H PRN PRN Reason: PAIN LEVEL 7 - 10 Nicotine (Nicoderm Patch -) 21 mg TD DAILY [facility] Last Admin: 10/23/19 13:20 Dose: 21 mg Documented by: Ondansetron HCl (Zofran Injection) 4 mg IVPUSH Q6H PRN PRN Reason: NAUSEA Oxycodone HCl (Roxicodone -) 5 mg PO Q4H PRN PRN Reason: PAIN LEVEL 1-5 Oxycodone HCl (Roxicodone -) 10 mg PO Q4H PRN PRN Reason: PAIN LEVEL 6-10 Pantoprazole Sodium (Protonix -) 40 mg PO DAILY [facility] Last Admin: 10/23/19 09:31 Dose: 40 mg Documented by: Fluticasone/Salmeterol (Advair 100mcg/50mcg -) 1 puff IH BID [facility] Last Admin: 10/23/19 09:35 Dose: Not Given Documented by: Trazodone HCl (Desyrel -) 200 mg PO HS [facility] Last Admin: 10/22/19 22:54 Dose: Not Given Documented by: Venlafaxine HCl (Effexor Xr -) 37.5 mg PO DAILY [facility] Last Admin: 10/23/19 09:34 Dose: 37.5 mg Documented by: GENERAL: NAD, Awake and alert HEENT: NCAT, EOMI. LUNGS: Clear to auscultation HEART: +S1, S2 regular, No murmurs. ABDOMEN: Bowel sounds present in all 4 quadrants. Nontender to palpation. SKIN: Bandage in lumbar region. Surgical site clean, dry and intact. SHAMIKA draining serosanguinous fluid. Laboratory Results - last 24 hr 10/22/19 10/23/19 10/23/19 10:08 05:35 05:35 WBC 11.0 H RBC 3.14 L Hgb 10.3 L Hct 30.8 L MCV 98.2 H MCH 32.7 MCHC 33.3 RDW 16.3 H Plt Count 207 D MPV 9.3 D Sodium 140 Potassium 4.5 Chloride 106 Carbon Dioxide 28 Anion Gap 6 L BUN 6.8 L Creatinine 0.6 Est GFR (CKD-EPI)AfAm 123.18 Est GFR (CKD-EPI)NonAf 106.28 Random Glucose 151 H Calcium 7.6 L Blood Type A POSITIVE Antibody Screen Negative Crossmatch See Detail ASSESSMENT/PLAN: POD #1 : Exploration of spinal fusion, removal of hardware and osteotomies, T12- S2 laminectomies with T12, L1, L5-S1 transpedicular decompression, and deformity correction with T12-S2 pedicle screw fusion. Vertigo HTN Depression Anxiety Airway monitoring Pain control VTE prophylaxis PO as tolerated Monitor drain output Normal transfusion thresholds Continued ICU monitoring for possible stridor Dr Antonio Critical care time spent in reviewing chart, evaluating patient and formulating plan - 36 minutes.
--- NOTE | 2019-10-23 15:25 | RAPID ---
Physical Examination Vital Signs: Vital Signs Temperature 97.8 F 10/23/19 07:30 Pulse Rate 88 10/23/19 12:00 Respiratory Rate 13 10/23/19 12:00 Blood Pressure 96/60 10/23/19 12:00 O2 Sat by Pulse Oximetry (%) 96 10/23/19 07:30 Constitutional: Yes: Moderate Distress Eyes: Yes: EOM Intact HENT: Yes: Atraumatic, Normocephalic, Other (Patent airway) Cardiovascular: Yes: Regular Rate and Rhythm Respiratory: Yes: Regular, CTA Bilaterally, Other (No stridor, wheezes or rales.) Gastrointestinal: Yes: Normal Bowel Sounds, Soft, Abdomen, Obese, Other (No distention.) Extremities: Yes: Other (No edema) Labs: CBC, BMP 10/23/19 05:35 10/23/19 05:35 Rapid Response - Rapid Response Assessment: Pt was heard gasping in her room. Pt was speaking in full sentences and was tearful upon encounter. Stated that immediately after receiving nicotine patch, she felt itchy and felt her throat closing up. Physical exam: General: patient anxious. Tearful. Groaning loudly. HEENT: Oropharnyx non- erythematous, negative, oropharyngeal edema. Negative exudates. Negative stridor. Pulmonary: clear to auscultation bilaterally. No accessory muscle use GI: abdomen soft, NT, ND Extremities: negative edema b/l Assessment/Plan: Symptoms likely secondary to anxiety, although loud ?transmitted upper airway sounds concerning for anaphylaxis. -Racemic epinephrine x1 dose IH nebulized. -DuoNebs Q4 hours -Home Alprazolam 0.1mg PO given. Upon reevaluation, patient comfortable, saturating well. Negative stridor. Negative accessory muscles of respiration.
[2019-10-23] MEDS: ONDANSETRON 4 MG/2 ML VIAL IVPUSH PRN (22:26)
[2019-10-23] MEDS ORDERED: traZODone HCL 50 MG TABLET (FP) ONE (22:28)
[2019-10-23] MEDS: traZODone HCL 100 MG TABLET (FP) PO SCH (22:29)
[2019-10-23] MEDS: ALPRAZolam 1 MG TABLET PO PRN (22:48)
[2019-10-24] MEDS: HEPARIN NA (PORCINE) 5,000 UNITS/ML 1ML VIAL SQ SCH ×3 (05:24→21:30)
[2019-10-24] MEDS: DOCUSATE SODIUM 100 MG CAPSULE (FP) PO SCH ×3 (05:24→21:30)
[2019-10-24 06:59] LABS: BASO % 0.2 % (0-2.0); EOS % 0.7 % (0-4.5); HEMATOCRIT 24.5 % (32.4-45.2); HEMOGLOBIN 8.3 GM/dL (10.7-15.3); LYMPH % 24.2 % (8-40); MCHC 33.8 g/dl (32.0-36.0); MEAN CELL VOLUME 97.5 fl (80-96); MONO % 5.9 % (3.8-10.2); PLATELET COUNT 132 K/MM3 (134-434); RBC 2.51 M/mm3 (3.60-5.2); RDW 15.9 % (11.6-15.6); WHITE BLOOD COUNT 5.6 K/mm3 (4.0-10.0)
[2019-10-24 07:21] LABS: ALBUMIN 2.5 g/dl (3.4-5.0); BILIRUBIN,TOTAL 0.3 mg/dL (0.2-1); CALCIUM 7.7 mg/dL (8.5-10.1); CREATININE 0.4 mg/dL (0.55-1.3); MAGNESIUM 1.7 mg/dL (1.8-2.4); PHOSPHOROUS 2.5 mg/dL (2.5-4.9); POTASSIUM 3.4 mmol/L (3.5-5.1)
[2019-10-24 07:27] LABS: BLOOD UREA NITROGEN 2.7 mg/dL (7-18)
[2019-10-24] MEDS ORDERED: MAGNESIUM SULF 50% (8.12 MEQ/2 ML-1 GM VIAL) IVPB ONE (07:27)
[2019-10-24] MEDS ORDERED: POTASSIUM CHLORIDE ORAL LIQUID 20 MEQ/15 ML PO ONE (07:27)
[2019-10-24] MEDS: ALPRAZolam 1 MG TABLET PO PRN ×3 (08:56→21:30)
[2019-10-24] MEDS: FOLIC ACID 1 MG TABLET (FP) PO SCH (09:08)
[2019-10-24] MEDS: FERROUS SO4 325 MG TABLET (FP) PO SCH (09:09)
[2019-10-24] MEDS: FUROSEMIDE 20 MG TABLET (FP) PO SCH (09:10)
[2019-10-24] MEDS: PANTOPRAZOLE 40 MG TABLET PO SCH (09:10)
[2019-10-24] MEDS: amLODIPine BESYLATE 5 MG TABLET (FP) PO SCH (09:11)
[2019-10-24] MEDS: NICOTINE 21 MG/24 HOURS TOPICAL PATCH TD SCH ×2 (09:12→09:30)
[2019-10-24] MEDS ORDERED: PT OWN MED DRAWER 7, Y5N ONE (09:18)
[2019-10-24] MEDS: VENLAFAXINE HCL 37.5 MG E.R. CAPSULE PO SCH (09:20)
[2019-10-24] MEDS: FLUTICASONE/SALMETEROL 100 MCG/50 MCG DISKUS IH SCH ×2 (10:45→21:31)
[2019-10-24] MEDS ORDERED: PCA PUMP NR ONE (11:22)
[2019-10-24] MEDS: HYDROmorphone *PCA* 10MG/50ML DISP.SYRIN PCA SCH ×2 (11:50→17:57)
--- NOTE | 2019-10-24 11:51 | PN ---
Progress Note (short form) - Note Progress Note: Seen and examined in the ICU OOB to chair c/o continued back pain Using TRAFFIC ADMINISTRATOR Tolerating diet BP stable Active Medications Alprazolam (Xanax) 1 mg PO Q6H PRN PRN Reason: ANXIETY Last Admin: 10/24/19 08:56 Dose: 1 mg Documented by: Amlodipine Besylate (Norvasc -) 5 mg PO DAILY [facility] Last Admin: 10/24/19 09:11 Dose: 5 mg Documented by: Cyclobenzaprine HCl (Flexeril -) 5 mg PO TID PRN PRN Reason: BACK PAIN Diphenhydramine HCl (Benadryl -) 25 mg PO Q6H PRN PRN Reason: FOR ITCHING Docusate Sodium (Colace -) 100 mg PO TID [facility] Last Admin: 10/24/19 05:24 Dose: 100 mg Documented by: Ferrous Sulfate (Feosol -) 325 mg PO DAILY [facility] Last Admin: 10/24/19 09:09 Dose: 325 mg Documented by: Folic Acid (Folic Acid -) 1 mg PO DAILY [facility] Last Admin: 10/24/19 09:08 Dose: 1 mg Documented by: Furosemide (Lasix -) 20 mg PO DAILY [facility] Last Admin: 10/24/19 09:10 Dose: 20 mg Documented by: Heparin Sodium (Porcine) (Heparin -) 5,000 unit SQ TID [facility] Last Admin: 10/24/19 05:24 Dose: 5,000 unit Documented by: Hydromorphone HCl (Hydromorphone 10 Mg/50 Ml-Ns) 10 mg TRAFFIC ADMINISTRATOR TRAFFIC ADMINISTRATOR [facility]; Protocol Stop: 10/29/19 17:24 Last Admin: 10/23/19 22:20 Dose: 10 mg Documented by: Morphine Sulfate (Morphine Sulfate) 4 mg IVPUSH Q4H PRN PRN Reason: PAIN LEVEL 7 - 10 Nicotine (Nicoderm Patch -) 21 mg TD DAILY [facility] Last Admin: 10/24/19 09:30 Dose: Not Given Documented by: Ondansetron HCl (Zofran Injection) 4 mg IVPUSH Q6H PRN PRN Reason: NAUSEA Last Admin: 10/23/19 22:26 Dose: 4 mg Documented by: Oxycodone HCl (Roxicodone -) 5 mg PO Q4H PRN PRN Reason: PAIN LEVEL 1-5 Oxycodone HCl (Roxicodone -) 10 mg PO Q4H PRN PRN Reason: PAIN LEVEL 6-10 Pantoprazole Sodium (Protonix -) 40 mg PO DAILY [facility] Last Admin: 10/24/19 09:10 Dose: 40 mg Documented by: Fluticasone/Salmeterol (Advair 100mcg/50mcg -) 1 puff IH BID [facility] Last Admin: 10/24/19 10:45 Dose: 2 inh Documented by: Trazodone HCl (Desyrel -) 200 mg PO HS [facility] Last Admin: 10/23/19 22:29 Dose: 200 mg Documented by: Venlafaxine HCl (Effexor Xr -) 37.5 mg PO DAILY [facility] Last Admin: 10/24/19 09:20 Dose: 37.5 mg Documented by: Vital Signs Period Temp Pulse Resp BP Sys/Caicedo Pulse Ox Last 24 Hr 98.2 F-98.9 F 80-115 6-16 90-112/51-86 98-98 Intake & Output 10/21/19 10/22/19 10/23/19 10/24/19 23:59 23:59 23:59 23:59 Intake Total 4950 3925 180 Output Total 3245 1610 Balance 1705 2315 180 Weight 81.647 kg 81.647 kg Exam: General: awake, alert, tearful 2/2 pain HEENT: PERRL, no JVD CV: RRR Pulm: CTA Abd:obese, SNTND +Bs Ext: WWP no edema Back: SHAMIKA sanguineous drainage CBC, BMP 10/24/19 05:50 10/24/19 05:50 ASSESSMENT/PLAN: POD #2 : Exploration of spinal fusion, removal of hardware and osteotomies, T12- S2 laminectomies with T12, L1, L5-S1 transpedicular decompression, and deformity correction with T12-S2 pedicle screw fusion. Vertigo HTN Depression Anxiety - o2 as needed for sat 90-50% - cont nebs prn - pain control w/ director biostatistics - pt, OOB to chair as tolerated - d/c IVF as she is tolerating diet - VTE prophylaxis - PO as tolerated - Monitor drain output - Normal transfusion thresholds Stable for floor from critical care stand point Anay LINK Pulm/CCM CCT: 35m
--- NOTE | 2019-10-24 19:06 | PN ---
Progress Note (short form) - Note Progress Note: Anesthesiology Pain Service POD#2 s/p Revision of Lumbar fusion under GA. Pt. is in ICU but is stable. VSS. Tolerating PO. She has been using BLACK PICKLER frequently. 49 y.o. woman with stable post-op course on BLACK PICKLER for post-op pain. Consider transitioning off BLACK PICKLER tomorrow onto PO analgesics. Would not initiate this now given late hour of the day. Anesthesia will follow until BLACK PICKLER d/c'd and/or as needed.
[2019-10-24] MEDS ORDERED: traZODone HCL 50 MG TABLET (FP) ONE (21:25)
[2019-10-24] MEDS: traZODone HCL 100 MG TABLET (FP) PO SCH (21:30)
[2019-10-24] MEDS: POLYETHYLENE GLYCOL 3350 119 GM BTL PO SCH (21:33)
[2019-10-24] MEDS: ONDANSETRON 4 MG/2 ML VIAL IVPUSH PRN (21:33)
[2019-10-25] MEDS: HEPARIN NA (PORCINE) 5,000 UNITS/ML 1ML VIAL SQ SCH ×3 (05:26→21:17)
[2019-10-25] MEDS: DOCUSATE SODIUM 100 MG CAPSULE (FP) PO SCH ×3 (05:26→21:16)
[2019-10-25] MEDS: HYDROmorphone *PCA* 10MG/50ML DISP.SYRIN PCA SCH (05:28)
[2019-10-25 06:22] LABS: HEMATOCRIT 23.6 % (32.4-45.2); MCHC 33.9 g/dl (32.0-36.0); MEAN CELL VOLUME 97.4 fl (80-96); MEAN PLT VOLUME 8.8 fl (7.5-11.1); PLATELET COUNT 140 K/MM3 (134-434); RBC 2.43 M/mm3 (3.60-5.2); RDW 15.7 % (11.6-15.6); WHITE BLOOD COUNT 5.1 K/mm3 (4.0-10.0)
[2019-10-25 06:45] LABS: BLOOD UREA NITROGEN 3.8 mg/dL (7-18); CALCIUM 8.2 mg/dL (8.5-10.1); CREATININE 0.4 mg/dL (0.55-1.3); PHOSPHOROUS 3.4 mg/dL (2.5-4.9); POTASSIUM 3.5 mmol/L (3.5-5.1)
--- NOTE | 2019-10-25 07:42 | PN ---
Progress Note (short form) - Note Progress Note: Progress Note: Seen and examined in the ICU OOB to chair c/o continued back pain, anxious Tolerating diet Active Medications Alprazolam (Xanax) 1 mg PO Q6H PRN PRN Reason: ANXIETY Last Admin: 10/25/19 08:35 Dose: 1 mg Documented by: Amlodipine Besylate (Norvasc -) 5 mg PO DAILY [facility] Last Admin: 10/25/19 09:25 Dose: 5 mg Documented by: Cyclobenzaprine HCl (Flexeril -) 5 mg PO TID PRN PRN Reason: BACK PAIN Diphenhydramine HCl (Benadryl -) 25 mg PO Q6H PRN PRN Reason: FOR ITCHING Docusate Sodium (Colace -) 100 mg PO TID [facility] Last Admin: 10/25/19 05:26 Dose: 100 mg Documented by: Ferrous Sulfate (Feosol -) 325 mg PO DAILY [facility] Last Admin: 10/25/19 09:26 Dose: 325 mg Documented by: Folic Acid (Folic Acid -) 1 mg PO DAILY [facility] Last Admin: 10/25/19 09:25 Dose: 1 mg Documented by: Furosemide (Lasix -) 20 mg PO DAILY [facility] Last Admin: 10/25/19 09:26 Dose: 20 mg Documented by: Heparin Sodium (Porcine) (Heparin -) 5,000 unit SQ TID [facility] Last Admin: 10/25/19 05:26 Dose: 5,000 unit Documented by: Morphine Sulfate (Morphine Sulfate) 4 mg IVPUSH Q4H PRN PRN Reason: PAIN LEVEL 7 - 10 Nicotine (Nicoderm Patch -) 21 mg TD DAILY [facility] Last Admin: 10/25/19 09:25 Dose: Not Given Documented by: Ondansetron HCl (Zofran Injection) 4 mg IVPUSH Q6H PRN PRN Reason: NAUSEA Last Admin: 10/24/19 21:33 Dose: 4 mg Documented by: Oxycodone HCl (Roxicodone -) 5 mg PO Q4H PRN PRN Reason: PAIN LEVEL 1-5 Oxycodone HCl (Roxicodone -) 10 mg PO Q4H PRN PRN Reason: PAIN LEVEL 6-10 Pantoprazole Sodium (Protonix -) 40 mg PO DAILY [facility] Last Admin: 10/25/19 09:24 Dose: 40 mg Documented by: Polyethylene Glycol (Miralax (For Daily Use) -) 17 gm PO BID [facility] Last Admin: 10/25/19 09:25 Dose: 17 gm Documented by: Fluticasone/Salmeterol (Advair 100mcg/50mcg -) 1 puff IH BID [facility] Last Admin: 10/25/19 09:24 Dose: 1 puff Documented by: Trazodone HCl (Desyrel -) 200 mg PO HS [facility] Last Admin: 10/24/19 21:30 Dose: 200 mg Documented by: Venlafaxine HCl (Effexor Xr -) 37.5 mg PO DAILY [facility] Last Admin: 10/25/19 09:30 Dose: 37.5 mg Documented by: Vital Signs Period Temp Pulse Resp BP Sys/Caicedo Pulse Ox Last 24 Hr 98.1 F-98.7 F 88-99 9-20 93-132/58-74 95-99 Intake & Output 10/22/19 10/23/19 10/24/19 10/25/19 23:59 23:59 23:59 23:59 Intake Total 4950 3925 420 120 Output Total 3245 1610 1230 600 Balance 1705 2315 -810 -480 Weight 81.647 kg CBC, BMP 10/25/19 05:50 10/25/19 05:50 Exam: General: awake, alert HEENT: PERRL, no JVD CV: RRR Pulm: CTA Abd:obese, SNTND +Bs Ext: WWP no edema Back: SHAMIKA sanguineous drainage ASSESSMENT/PLAN: POD #3 : Exploration of spinal fusion, removal of hardware and osteotomies, T12- S2 laminectomies with T12, L1, L5-S1 transpedicular decompression, and deformity correction with T12-S2 pedicle screw fusion. Vertigo HTN Depression Anxiety Pain - o2 as needed for sat 90-50% - Intencive spirometry - cont nebs prn - pain control w/ link wire fabric machine tender, will try to switch to PO as tolerated - pt, OOB to chair as tolerated - regular diet - VTE prophylaxis - Bowel regiment - Monitor drain output - Normal transfusion thresholds Stable for floor from critical care stand point Yuly Novak ACNP Pulm/CCM
[2019-10-25] MEDS: ALPRAZolam 1 MG TABLET PO PRN ×3 (08:35→21:16)
[2019-10-25] MEDS: PANTOPRAZOLE 40 MG TABLET PO SCH (09:24)
[2019-10-25] MEDS: FLUTICASONE/SALMETEROL 100 MCG/50 MCG DISKUS IH SCH ×2 (09:24→21:18)
[2019-10-25] MEDS: FOLIC ACID 1 MG TABLET (FP) PO SCH (09:25)
[2019-10-25] MEDS: NICOTINE 21 MG/24 HOURS TOPICAL PATCH TD SCH (09:25)
[2019-10-25] MEDS: POLYETHYLENE GLYCOL 3350 119 GM BTL PO SCH ×2 (09:25→21:17)
[2019-10-25] MEDS: amLODIPine BESYLATE 5 MG TABLET (FP) PO SCH (09:25)
[2019-10-25] MEDS: FUROSEMIDE 20 MG TABLET (FP) PO SCH (09:26)
[2019-10-25] MEDS: FERROUS SO4 325 MG TABLET (FP) PO SCH (09:26)
[2019-10-25] MEDS ORDERED: PT OWN MED DRAWER 7, Y5N ONE (09:28)
[2019-10-25] MEDS: VENLAFAXINE HCL 37.5 MG E.R. CAPSULE PO SCH (09:30)
--- NOTE | 2019-10-25 10:41 | PN ---
Progress Note (short form) - Note Progress Note: Anesthesiology SAS ETL DEVELOPER round POD#3 s/p Revision of Lumbar fusion under GA. Sitting in the chair. Done well with transferring from bed to chair. Pain controlled 5-09/22. Tolerating po. Emotional, scared to not receive pain medication if d/C the SAS ETL DEVELOPER. Explained to the patient the plan for transition to PO analgesics, reassured. D/w the RN. Will try D/C the SAS ETL DEVELOPER today, continue with PO analgesics as per primary/ICU team. If it doesn't work out will reassess.
[2019-10-25] MEDS: oxyCODONE HCL 5 MG TABLET PO PRN ×3 (12:10→21:15)
[2019-10-25] MEDS ORDERED: PCA PUMP NR ONE (19:19)
[2019-10-25] MEDS ORDERED: traZODone HCL 50 MG TABLET (FP) ONE (20:56)
[2019-10-25] MEDS: traZODone HCL 100 MG TABLET (FP) PO SCH (21:17)
[2019-10-26] MEDS: oxyCODONE HCL 5 MG TABLET PO PRN ×3 (02:43→13:02)
[2019-10-26] MEDS ORDERED: INSULIN (NOVOLOG) ASPART 100 UNITS/ML 10ML VIAL ONE (03:05)
[2019-10-26] MEDS: HEPARIN NA (PORCINE) 5,000 UNITS/ML 1ML VIAL SQ SCH ×3 (06:00→21:11)
[2019-10-26] MEDS: DOCUSATE SODIUM 100 MG CAPSULE (FP) PO SCH ×3 (06:00→21:10)
[2019-10-26 07:07] LABS: HEMATOCRIT 24.5 % (32.4-45.2); HEMOGLOBIN 8.4 GM/dL (10.7-15.3); MCH 33.5 pg (25.7-33.7); MCHC 34.2 g/dl (32.0-36.0); MEAN CELL VOLUME 97.9 fl (80-96); MEAN PLT VOLUME 8.7 fl (7.5-11.1); PLATELET COUNT 170 K/MM3 (134-434); RBC 2.51 M/mm3 (3.60-5.2); RDW 15.5 % (11.6-15.6); WHITE BLOOD COUNT 5.7 K/mm3 (4.0-10.0)
[2019-10-26 07:32] LABS: ALBUMIN 2.6 g/dl (3.4-5.0); BLOOD UREA NITROGEN 5.9 mg/dL (7-18); CALCIUM 8.4 mg/dL (8.5-10.1); MAGNESIUM 1.8 mg/dL (1.8-2.4); POTASSIUM 3.9 mmol/L (3.5-5.1); TOT PROT 5.8 g/dl (6.4-8.2)
[2019-10-26 07:33] LABS: BILIRUBIN,TOTAL 0.3 mg/dL (0.2-1); CREATININE 0.5 mg/dL (0.55-1.3); PHOSPHOROUS 3.9 mg/dL (2.5-4.9)
[2019-10-26] MEDS: CYCLOBENZAPRINE HCL 10 MG TABLET (FP) PO PRN (08:32)
[2019-10-26] MEDS: PANTOPRAZOLE 40 MG TABLET PO SCH (09:18)
[2019-10-26] MEDS: FOLIC ACID 1 MG TABLET (FP) PO SCH (09:18)
[2019-10-26] MEDS: FUROSEMIDE 20 MG TABLET (FP) PO SCH (09:18)
[2019-10-26] MEDS: POLYETHYLENE GLYCOL 3350 119 GM BTL PO SCH ×2 (09:19→21:11)
[2019-10-26] MEDS: FLUTICASONE/SALMETEROL 100 MCG/50 MCG DISKUS IH SCH ×2 (09:19→21:12)
[2019-10-26] MEDS: FERROUS SO4 325 MG TABLET (FP) PO SCH (09:19)
[2019-10-26] MEDS ORDERED: PT OWN MED DRAWER 7, Y5N ONE (09:22)
[2019-10-26] MEDS: ALPRAZolam 1 MG TABLET PO PRN ×2 (09:26→17:09)
[2019-10-26] MEDS: amLODIPine BESYLATE 5 MG TABLET (FP) PO SCH (10:41)
[2019-10-26] MEDS: VENLAFAXINE HCL 37.5 MG E.R. CAPSULE PO SCH (10:41)
--- NOTE | 2019-10-26 12:36 | PN ---
Teaching Attending Note Name of Resident: Maddy Damon ATTENDING PHYSICIAN STATEMENT I saw and evaluated the patient. I reviewed the resident's note and discussed the case with the resident. I agree with the resident's findings and plan as documented. SUBJECTIVE: Patient seen and examined in the ICU. OOB to chair. Feels and appears overall better. Intake & Output 10/23/19 10/24/19 10/25/19 10/26/19 23:59 23:59 23:59 23:59 Intake Total 3925 420 360 50 Output Total 1610 1230 1100 350 Balance 2315 -810 -740 -300 Weight 180 lb Last Vital Signs Temp Pulse Resp BP Pulse Ox 98.2 F 79 16 94/56 L 100 10/26/19 11:15 10/26/19 11:15 10/26/19 11:15 10/26/19 11:15 10/26/19 09:00 Active Medications Alprazolam (Xanax) 1 mg PO Q6H PRN PRN Reason: ANXIETY Last Admin: 10/26/19 09:26 Dose: 1 mg Documented by: Amlodipine Besylate (Norvasc -) 5 mg PO DAILY [facility] Last Admin: 10/26/19 10:41 Dose: Not Given Documented by: Cyclobenzaprine HCl (Flexeril -) 5 mg PO TID PRN PRN Reason: BACK PAIN Last Admin: 10/26/19 08:32 Dose: 5 mg Documented by: Diphenhydramine HCl (Benadryl -) 25 mg PO Q6H PRN PRN Reason: FOR ITCHING Docusate Sodium (Colace -) 100 mg PO TID [facility] Last Admin: 10/26/19 06:00 Dose: 100 mg Documented by: Ferrous Sulfate (Feosol -) 325 mg PO DAILY [facility] Last Admin: 10/26/19 09:19 Dose: 325 mg Documented by: Folic Acid (Folic Acid -) 1 mg PO DAILY [facility] Last Admin: 10/26/19 09:18 Dose: 1 mg Documented by: Furosemide (Lasix -) 20 mg PO DAILY [facility] Last Admin: 10/26/19 09:18 Dose: 20 mg Documented by: Heparin Sodium (Porcine) (Heparin -) 5,000 unit SQ TID [facility] Last Admin: 10/26/19 06:00 Dose: 5,000 unit Documented by: Morphine Sulfate (Morphine Sulfate) 4 mg IVPUSH Q4H PRN PRN Reason: PAIN LEVEL 7 - 10 Ondansetron HCl (Zofran Injection) 4 mg IVPUSH Q6H PRN PRN Reason: NAUSEA Last Admin: 10/24/19 21:33 Dose: 4 mg Documented by: Oxycodone HCl (Roxicodone -) 5 mg PO Q4H PRN PRN Reason: PAIN LEVEL 1-5 Oxycodone HCl (Roxicodone -) 10 mg PO Q4H PRN PRN Reason: PAIN LEVEL 6-10 Last Admin: 10/26/19 07:57 Dose: 10 mg Documented by: Pantoprazole Sodium (Protonix -) 40 mg PO DAILY [facility] Last Admin: 10/26/19 09:18 Dose: 40 mg Documented by: Polyethylene Glycol (Miralax (For Daily Use) -) 17 gm PO BID [facility] Last Admin: 10/26/19 09:19 Dose: 17 gm Documented by: Fluticasone/Salmeterol (Advair 100mcg/50mcg -) 1 puff IH BID [facility] Last Admin: 10/26/19 09:19 Dose: 1 puff Documented by: Trazodone HCl (Desyrel -) 200 mg PO HS [facility] Last Admin: 10/25/19 21:17 Dose: 200 mg Documented by: Venlafaxine HCl (Effexor Xr -) 37.5 mg PO DAILY [facility] Last Admin: 10/26/19 10:41 Dose: 37.5 mg Documented by: GENERAL: NAD, Awake and alert HEENT: NCAT, EOMI. LUNGS: Clear to auscultation HEART: +S1, S2 regular, No murmurs. ABDOMEN: Bowel sounds present in all 4 quadrants. Nontender to palpation. SKIN: Brace intact and in place Laboratory Results - last 24 hr 10/22/19 10/26/19 10/26/19 10:08 05:50 05:50 WBC 5.7 RBC 2.51 L Hgb 8.4 L Hct 24.5 L MCV 97.9 H MCH 33.5 MCHC 34.2 RDW 15.5 Plt Count 170 D MPV 8.7 Sodium 140 Potassium 3.9 Chloride 103 Carbon Dioxide 31 Anion Gap 6 L BUN 5.9 L Creatinine 0.5 L Est GFR (CKD-EPI)AfAm 130.79 Est GFR (CKD-EPI)NonAf 112.85 Random Glucose 132 H Calcium 8.4 L Phosphorus 3.9 Magnesium 1.8 Total Bilirubin 0.3 AST 32 ALT 28 Alkaline Phosphatase 83 Total Protein 5.8 L Albumin 2.6 L Blood Type A POSITIVE Antibody Screen Negative Crossmatch See Detail ASSESSMENT/PLAN: POD #4 : Exploration of spinal fusion, removal of hardware and osteotomies, T12- S2 laminectomies with T12, L1, L5-S1 transpedicular decompression, and deformity correction with T12-S2 pedicle screw fusion. Vertigo HTN Depression Anxiety Pain control VTE prophylaxis PO as tolerated Normal transfusion thresholds Transfer / DC planning Dr Antonio
--- NOTE | 2019-10-26 15:02 | PN ---
Progress Note (short form) - Note Progress Note: TRANSFER NOTE Subjective: Seen and examined, patient is talkative but endorses daily tearfulness. Also expresses continued pain and fear of pain since d/c'ing the ASSOCIATE PROFESSOR OF SOCIOLOGY. Patient is motivated to get better and show interest when talking about PT. Has not had BM since surgery but has been passing flatus. Objective: General: awake, anxious, in mild distress Head: normocephalic, atraumatic Heart: RRR, mild systolic murmur Lungs: CTAB Abdomen: R laterally tender to palpation, mildly distended, lower quadrants somewhat hard on palpation Extremities: warm to touch, no edema noted, no rashes Psych: go anxiety, mildly depressed Hospital Course: 49yo F with PMHx of vertigo, HTN, smoking, depression & anxiety who had the following procedure on 10/22/2019: exploration of spinal fusion, removal of hardware and osteotomies, T12-S2 laminectomies with T12, L1, L5-S1 tr anspedicular decompression, and deformity correction with T12-S2 pedicle screw fusion. Was admitted to ICU for monitoring. Pain was managed with ASSOCIATE PROFESSOR OF SOCIOLOGY initially then patient was weaned to oral pain management with morphine and oxycodone. ICU course was also remarkable for severe anxiety that has been managed medically. Per Dr. Lehman patient is stable and has been optimized for transfer. #Neuro anxiety pain - continue trazodone, venlafaxine, alprazolam - continue morphine and oxycodone #Cardio HTN - continue amlodipine, furosemide #GI nausea - continue PPI, ondansetron #MSK Status post removal of hardware & osteotomies, laminectomy, transpedicular decompression, deformity correction w/ pedical screw fusion. - continue pain management with morphine and oxycodone - PT #FEN - no standing fluids - Replete lytes PRN - Diet as tolerated. #PPX - DVT: SQH + SCDs - GI: PPI
--- NOTE | 2019-10-26 16:53 | PN ---
Progress Note (short form) - Note Progress Note: Ortho Pt seen and examined s/p exploration of spinal fusion, removal of hardware and osteotomies, T12-S2 laminectomies with T12, L1, L5-S1 transpedicular decompression, and deformity correction with T12-S2 pedicle screw fusion. Pt doing well and continues to improve. Selected Entries 10/26/19 10/26/19 11:15 15:00 Temperature 98.2 F Pulse Rate 79 Respiratory 16 Rate Blood Pressure 110/71 Laboratory Tests 10/26/19 05:50 WBC 5.7 Hgb 8.4 L Hct 24.5 L Plt Count [address], dressing c/d/i, drain in place, + incisional ttp, nvi a/p drain removed PT continue TLSO pain control d/c planning f/u with Dr. Lehman
[2019-10-26] MEDS: ONDANSETRON 4 MG/2 ML VIAL IVPUSH PRN (17:58)
[2019-10-26] MEDS ORDERED: PANTOPRAZOLE SODIUM 40 MG VIAL IVPUSH ONE (20:59)
[2019-10-26] MEDS ORDERED: traZODone HCL 50 MG TABLET (FP) ONE (21:06)
[2019-10-26] MEDS: traZODone HCL 100 MG TABLET (FP) PO SCH (21:11)
[2019-10-27] MEDS: ALPRAZolam 1 MG TABLET PO PRN ×2 (00:50→08:23)
[2019-10-27] MEDS: DOCUSATE SODIUM 100 MG CAPSULE (FP) PO SCH ×2 (05:54→13:28)
[2019-10-27] MEDS: HEPARIN NA (PORCINE) 5,000 UNITS/ML 1ML VIAL SQ SCH ×2 (05:54→13:29)
[2019-10-27 06:30] LABS: BASO % 0.6 % (0-2.0); EOS % 1.8 % (0-4.5); HEMATOCRIT 24.8 % (32.4-45.2); HEMOGLOBIN 8.4 GM/dL (10.7-15.3); LYMPH % 22.4 % (8-40); MCH 33.3 pg (25.7-33.7); MEAN CELL VOLUME 97.8 fl (80-96); MEAN PLT VOLUME 8.9 fl (7.5-11.1); MONO % 8.6 % (3.8-10.2); NEUT % 66.6 % (42.8-82.8); PLATELET COUNT 205 K/MM3 (134-434); RBC 2.54 M/mm3 (3.60-5.2); RDW 15.3 % (11.6-15.6); WHITE BLOOD COUNT 6.1 K/mm3 (4.0-10.0)
[2019-10-27 06:53] LABS: ALBUMIN 2.6 g/dl (3.4-5.0); BILIRUBIN,TOTAL 0.3 mg/dL (0.2-1); CALCIUM 8.7 mg/dL (8.5-10.1); CREATININE 0.5 mg/dL (0.55-1.3); MAGNESIUM 1.8 mg/dL (1.8-2.4); PHOSPHOROUS 3.5 mg/dL (2.5-4.9); POTASSIUM 3.8 mmol/L (3.5-5.1)
[2019-10-27] MEDS ORDERED: PT OWN MED DRAWER 7, Y5N ONE (09:10)
[2019-10-27] MEDS: FOLIC ACID 1 MG TABLET (FP) PO SCH (09:30)
[2019-10-27] MEDS: amLODIPine BESYLATE 5 MG TABLET (FP) PO SCH (09:30)
[2019-10-27] MEDS: VENLAFAXINE HCL 37.5 MG E.R. CAPSULE PO SCH (09:30)
[2019-10-27] MEDS: FLUTICASONE/SALMETEROL 100 MCG/50 MCG DISKUS IH SCH (09:30)
[2019-10-27] MEDS: PANTOPRAZOLE 40 MG TABLET PO SCH (09:31)
[2019-10-27] MEDS: oxyCODONE HCL 5 MG TABLET PO PRN ×2 (09:31→13:29)
[2019-10-27] MEDS: FERROUS SO4 325 MG TABLET (FP) PO SCH (09:31)
[2019-10-27] MEDS: FUROSEMIDE 20 MG TABLET (FP) PO SCH (09:31)
[2019-10-27] MEDS: POLYETHYLENE GLYCOL 3350 119 GM BTL PO SCH (09:41)
--- NOTE | 2019-10-27 13:25 | DS ---
Physical Exam: SUBJECTIVE: Patient seen and examined, was very tired in the morning due to a difficult night (tearfulness, sadness, helplessness). Later in the day after receiving her medications patient was feeling much better, could eat her breakfast and drink her coffee. However, had persistent tearfulness and feeling helpless. Patient expressed that she really wants to go home. OBJECTIVE: Vital Signs Period Temp Pulse Resp BP Sys/Caicedo Pulse Ox Last 24 Hr 97.7 F-98.6 F 76-93 11-23 98-121/57-80 100-100 PHYSICAL EXAM General: awake, anxious, in mild distress Head: normocephalic, atraumatic Heart: RRR, mild systolic murmur Lungs: CTAB Abdomen: R laterally tender to palpation, mildly distended, lower quadrants somewhat hard on palpation Extremities: warm to touch, no edema noted, no rashes Psych: go anxiety, tearfulness, mildly depressed LABS Laboratory Results - last 24 hr 10/27/19 10/27/19 05:45 05:45 WBC 6.1 RBC 2.54 L Hgb 8.4 L Hct 24.8 L MCV 97.8 H MCH 33.3 MCHC 34.0 RDW 15.3 Plt Count 205 D MPV 8.9 Absolute Neuts (auto) 4.1 Neutrophils % 66.6 Lymphocytes % 22.4 Monocytes % 8.6 Eosinophils % 1.8 D Basophils % 0.6 Nucleated RBC % 0 Sodium 140 Potassium 3.8 Chloride 104 Carbon Dioxide 31 Anion Gap 5 L BUN 7.0 Creatinine 0.5 L Est GFR (CKD-EPI)AfAm 130.79 Est GFR (CKD-EPI)NonAf 112.85 Random Glucose 140 H Calcium 8.7 Phosphorus 3.5 Magnesium 1.8 Total Bilirubin 0.3 AST 38 H ALT 33 Alkaline Phosphatase 89 Total Protein 6.0 L Albumin 2.6 L HOSPITAL COURSE: 49yo F with PMHx of vertigo, HTN, smoking, depression & anxiety who had the following procedure on 10/22/2019: exploration of spinal fusion, removal of hardware and osteotomies, T12-S2 laminectomies with T12, L1, L5-S1 transpedicular decompression, and deformity correction with T12-S2 pedicle screw fusion. Was admitted to ICU for monitoring. Pain was managed with EMERGENCY VEHICLE OPERATIONS INSTRUCTOR initially then patient was weaned to oral pain management. Per Dr. Lehman patient is stable and has been optimized for discharge home with the d/c instructions below and home PT. Date of Admission:10/22/19 Date of Discharge: 10/27/19 Minutes to complete discharge: 37 Discharge Summary Problems reviewed: Yes Reason For Visit: LUMBAR SPONDYLOSIS Condition: Stable - Instructions Diet, Activity, Other Instructions: You were evaluated by Dr. Lehman and underwent back surgery with on 10/22/2019. Was admitted to ICU for monitoring. Following surgery, you were monitored in the ICU without any post-surgical complications. You are stable and can go home with VNS and home physical therapy. Follow up: Follow up doctor visits were scheduled with Dr. Helm and Dr. Lehman. Dietary Changes: No dietary changes indicated but would highly recommend smoking cessation as it interferes with the wound healing process. Medications: Continue your home medications and avoid non-steroidal antiinflammatory drugs (NSAIDs) such as Ibuprofen, Motrin, etc. Activity: Do not lift weights greater than 5lbs or twist. Make sure to get plenty of rest. Keep the surgical site clean, and dry. Continue wearing your spinal brace ([id number] orthosis). You will have home nursing and physical therapy - continue following their instructions and recommendations. Emergency symptoms: Proceed to the nearest Emergency Department if you experience fever, chest pain, shortness of breath, worsening pain, any bleeding, trauma or fall. Referrals: Adrian Lehman MD, [facility] [Staff Physician] - 1 Week (Post-op follow up ) Lane Sorenson MD [Staff Physician] - 1 Week (post-op follow up, hospital course significant for anxiety and tearfulness ) Disposition: VNS/HOME HEALTH CARE - Home Medications Comprehensive Discharge Medication List: Ambulatory Orders Alprazolam [Xanax] 1 mg PO QID PRN 08/23/14 Amlodipine Besylate [Norvasc -] 5 mg PO DAILY 08/23/14 Salmeterol/Fluticasone [Advair 100Mcg/50Mcg -] 1 inh PO BID PRN 02/19/19 Furosemide 20 mg PO DAILY 04/21/19 Oxycodone HCl/Acetaminophen [Oxycodone-Acetaminophen 10-325] 2 tab PO BID 04/21/19 Pantoprazole Sodium 40 mg PO DAILY 04/21/19 Venlafaxine HCl ER [Effexor Xr -] 37.5 mg PO DAILY 04/21/19 traZODone HCL [Trazodone HCl] 2 tab PO HS 04/21/19 L.acidoph,Paracasei, B.lactis [Probiotic] 1 each PO DAILY 10/21/19 Multivitamins [Multivit ([facility])] 1 tab PO DAILY 10/21/19 This patient is new to me today: Yes Date on this admission: 10/27/19 Emergency Visit: Yes ED Registration Date: 10/22/19 Care time: The patient presented to the Emergency Department on the above date and was hospitalized for further evaluation of their emergent condition. Critical Care patient: Yes Total Critical Care Time (in minutes): 37 Critical Care Statement: The care of this patient involved high complexity decision making to prevent further life threatening deterioration of the patient's condition and/or to evaluate & treat vital organ system(s) failure or risk of failure. - Discharge Referral Referred to [facility] No ATTENDING PHYSICIAN STATEMENT I saw and evaluated the patient. I reviewed the resident's note and discussed the case with the resident. I agree with the resident's findings and plan as documented. SUBJECTIVE: OBJECTIVE: ASSESSMENT AND PLAN:
--- NOTE | 2019-10-27 14:24 | PN ---
Teaching Attending Note Name of Resident: Zeina Saab ATTENDING PHYSICIAN STATEMENT I saw and evaluated the patient. I reviewed the resident's note and discussed the case with the resident. I agree with the resident's findings and plan as documented. SUBJECTIVE: Patient seen and examined in the ICU. OOB to chair. Reports feeling very anxious overnight. Pain seems a little worse today. No CP or SOB. Intake & Output 10/24/19 10/25/19 10/26/19 10/27/19 23:59 23:59 23:59 23:59 Intake Total 420 360 530 Output Total 1230 1100 350 Balance -810 -740 180 Last Vital Signs Temp Pulse Resp BP Pulse Ox 98.0 F 84 16 115/80 100 10/27/19 09:42 10/27/19 09:42 10/27/19 09:42 10/27/19 09:42 10/27/19 08:29 Active Medications Alprazolam (Xanax) 1 mg PO Q6H PRN PRN Reason: ANXIETY Last Admin: 10/27/19 08:23 Dose: 1 mg Documented by: Amlodipine Besylate (Norvasc -) 5 mg PO DAILY [facility] Last Admin: 10/27/19 09:30 Dose: 5 mg Documented by: Cyclobenzaprine HCl (Flexeril -) 5 mg PO TID PRN PRN Reason: BACK PAIN Last Admin: 10/26/19 08:32 Dose: 5 mg Documented by: Diphenhydramine HCl (Benadryl -) 25 mg PO Q6H PRN PRN Reason: FOR ITCHING Docusate Sodium (Colace -) 100 mg PO TID [facility] Last Admin: 10/27/19 13:28 Dose: Not Given Documented by: Ferrous Sulfate (Feosol -) 325 mg PO DAILY [facility] Last Admin: 10/27/19 09:31 Dose: 325 mg Documented by: Folic Acid (Folic Acid -) 1 mg PO DAILY [facility] Last Admin: 10/27/19 09:30 Dose: 1 mg Documented by: Furosemide (Lasix -) 20 mg PO DAILY [facility] Last Admin: 10/27/19 09:31 Dose: 20 mg Documented by: Heparin Sodium (Porcine) (Heparin -) 5,000 unit SQ TID [facility] Last Admin: 10/27/19 13:29 Dose: 5,000 unit Documented by: Morphine Sulfate (Morphine Sulfate) 4 mg IVPUSH Q4H PRN PRN Reason: PAIN LEVEL 7 - 10 Last Admin: 10/26/19 15:48 Dose: 4 mg Documented by: Ondansetron HCl (Zofran Injection) 4 mg IVPUSH Q6H PRN PRN Reason: NAUSEA Last Admin: 10/26/19 17:58 Dose: 4 mg Documented by: Oxycodone HCl (Roxicodone -) 5 mg PO Q4H PRN PRN Reason: PAIN LEVEL 1-5 Oxycodone HCl (Roxicodone -) 10 mg PO Q4H PRN PRN Reason: PAIN LEVEL 6-10 Last Admin: 10/27/19 13:29 Dose: 10 mg Documented by: Pantoprazole Sodium (Protonix -) 40 mg PO DAILY [facility] Last Admin: 10/27/19 09:31 Dose: 40 mg Documented by: Polyethylene Glycol (Miralax (For Daily Use) -) 17 gm PO BID [facility] Last Admin: 10/27/19 09:41 Dose: Not Given Documented by: Fluticasone/Salmeterol (Advair 100mcg/50mcg -) 1 puff IH BID [facility] Last Admin: 10/27/19 09:30 Dose: 1 puff Documented by: Trazodone HCl (Desyrel -) 200 mg PO HS [facility] Last Admin: 10/26/19 21:11 Dose: 200 mg Documented by: Venlafaxine HCl (Effexor Xr -) 37.5 mg PO DAILY [facility] Last Admin: 10/27/19 09:30 Dose: 37.5 mg Documented by: GENERAL: Anxious, Awake and alert HEENT: NCAT, EOMI. LUNGS: Clear to auscultation HEART: +S1, S2 regular, No murmurs. ABDOMEN: Bowel sounds present in all 4 quadrants. Nontender to palpation. SKIN: Brace intact and in place Laboratory Results - last 24 hr 10/27/19 10/27/19 05:45 05:45 WBC 6.1 RBC 2.54 L Hgb 8.4 L Hct 24.8 L MCV 97.8 H MCH 33.3 MCHC 34.0 RDW 15.3 Plt Count 205 D MPV 8.9 Absolute Neuts (auto) 4.1 Neutrophils % 66.6 Lymphocytes % 22.4 Monocytes % 8.6 Eosinophils % 1.8 D Basophils % 0.6 Nucleated RBC % 0 Sodium 140 Potassium 3.8 Chloride 104 Carbon Dioxide 31 Anion Gap 5 L BUN 7.0 Creatinine 0.5 L Est GFR (CKD-EPI)AfAm 130.79 Est GFR (CKD-EPI)NonAf 112.85 Random Glucose 140 H Calcium 8.7 Phosphorus 3.5 Magnesium 1.8 Total Bilirubin 0.3 AST 38 H ALT 33 Alkaline Phosphatase 89 Total Protein 6.0 L Albumin 2.6 L ASSESSMENT/PLAN: POD #5 : Exploration of spinal fusion, removal of hardware and osteotomies, T12- S2 laminectomies with T12, L1, L5-S1 transpedicular decompression, and deformity correction with T12-S2 pedicle screw fusion. Vertigo HTN Depression Anxiety Pain control PRN Xanax VTE prophylaxis PO as tolerated Normal transfusion thresholds Transfer / DC planning Dr Antonio
[2019-10-27] MEDS: CYCLOBENZAPRINE HCL 10 MG TABLET (FP) PO PRN (15:05)
[2019-10-27 15:28] VITALS: BP 118/79; PULSE 87
[2019-10-27 15:29] VITALS: TEMP 98
--- NOTE | 2019-11-09 15:00 | PATH ---
Surgical Pathology Report Patient Name: ABBI PRICE [facility]. Rec. #: [id number] /Age/Gender: 1970 (Age: 49) / F Account: [id number] Location: ICU [facility] [employer] Taken: 10/22/2019 Received: 10/23/2019 Reported: 10/27/2019 Physicians: Adrian Muller M.D. Specimen(s) Received EPIDURAL MASS CALCIFIED JUXTAFACET CYST Clinical History Lumbar spondylosis Final Diagnosis EPIDURAL MASS, CALCIFIED JUXTAFACET CYST, EXCISION: BONE, CARTILAGE AND ADJACENT CYSTIC LESION FOCALLY LINED BY SYNOVIAL AND VASCULAR GRANULATION TISSUE WITH AMORPHOUS MATERIAL CONTENTS NEGATIVE FOR MALIGNANCY. SEE COMMENT. Comment: Findings are compatible with a synovial cyst. Clinical correlation is recommended. Electronically Signed Darrel Sandy M.D. Gross Description Received in formalin labeled "epidural mass, calcified juxtafacet cyst," is a 1.6 x 1.5 x 1.0 cm rush-yellow portion of fibrocartilaginous tissue. There is a 0.9 x 0.6 x 0.5 cm rush-yellow, calcified mass identified. The specimen is serially sectioned and entirely submitted in 4 cassettes, following decalcification. DL/10/23/2019 saudi/10/23/2019
== END 2019-10-27 15:57 | disposition home health service (06) | DRG 455 ==
LOC: J2C 10:03 → JICU 19:43
PROVIDERS: ADMIT Neurological Surgery; ATTEND Internal Medicine
PROC: 0SG30AJ Fusion of Lumbosacral Joint with Interbody Fusion Device, Posterior Approach, Anterior Column, Open Approach (ICD-10-PCS; 2019-10-22)
PROC: 0SG1071 Fusion of 2 or more Lumbar Vertebral Joints with Autologous Tissue Substitute, Posterior Approach, Posterior Column, Open Approach (ICD-10-PCS; 2019-10-22)
PROC: 0SG3071 Fusion of Lumbosacral Joint with Autologous Tissue Substitute, Posterior Approach, Posterior Column, Open Approach (ICD-10-PCS; 2019-10-22)
PROC: 0SB40ZZ Excision of Lumbosacral Disc, Open Approach (ICD-10-PCS; 2019-10-22)
PROC: 00BY0ZZ Excision of Lumbar Spinal Cord, Open Approach (ICD-10-PCS; 2019-10-22)
PROC: 0RPA04Z Removal of Internal Fixation Device from Thoracolumbar Vertebral Joint, Open Approach (ICD-10-PCS; 2019-10-22)
PROC: 0SP004Z Removal of Internal Fixation Device from Lumbar Vertebral Joint, Open Approach (ICD-10-PCS; 2019-10-22)
PROC: 0SP304Z Removal of Internal Fixation Device from Lumbosacral Joint, Open Approach (ICD-10-PCS; 2019-10-22)
PROC: 0SH004Z Insertion of Internal Fixation Device into Lumbar Vertebral Joint, Open Approach (ICD-10-PCS; 2019-10-22)
PROC: 0RHA04Z Insertion of Internal Fixation Device into Thoracolumbar Vertebral Joint, Open Approach (ICD-10-PCS; 2019-10-22)
PROC: 0HX6XZZ Transfer Back Skin, External Approach (ICD-10-PCS; 2019-10-22)
PROC: 30233N1 Transfusion of Nonautologous Red Blood Cells into Peripheral Vein, Percutaneous Approach (ICD-10-PCS; 2019-10-22)
PROC: 0RGA071 Fusion of Thoracolumbar Vertebral Joint with Autologous Tissue Substitute, Posterior Approach, Posterior Column, Open Approach (ICD-10-PCS; principal; 2019-10-22 10:00)
DX: M41.54 Other secondary scoliosis, thoracic region (principal); M47.816 Spondylosis without myelopathy or radiculopathy, lumbar region; M41.86 Other forms of scoliosis, lumbar region; R22.9 Localized swelling, mass and lump, unspecified; R00.0 Tachycardia, unspecified; R42 Dizziness and giddiness; I10 Essential (primary) hypertension; F41.8 Other specified anxiety disorders
CPT/HCPCS: 36415; 36430; 36511; 72131-TC; 76000-TC-FY; 80048; 80053; 83735; 84100; 85025; 85027; 86850; 86900; 86901; 86922; 88305-TC; 88311-TC; 94640; 94760; 97116-GP; 97161-GP; J0131; J1644; P9038; P9058